=== PATIENT | female | born 1975 | race American Indian/Alaskan Native ===

== ENCOUNTER 2018-01-10 12:05 | Emergency (ER) | payer MEDICARE, MEDICAID ==
[2018-01-10 12:06] VITALS: BMI 60.2
--- NOTE | 2018-01-10 12:41 | ED PDOC ---
Arrival/HPI - General Chief Complaint: Lower Extremity Problem/Injury Time Seen by Provider: 01/10/18 12:09 Historian: Patient - History of Present Illness Narrative History of Present Illness (Text): 01/10/18 12:54 Patient is a 42 year old morbidly obese female with a past medical history including diabetes and a chronic venous ulcer located on her right griffin. Patient was seen in the wound care center this morning for her right griffin ulcer. The ulcer became very painful and she requested a new prescription for pain medication because she had recently run out of medication. She was informed there was no physician available in to prescribe her any medication and she decided to come to the emergency department. She is requesting a refill of her Tramadol, stating she is in too much pain. She did not try to call Dr. Salmeron because she states she does not have her phone number. Time/Duration: > month (9+ months ) Symptom Onset: Other (Chronic ) Symptom Course: Intermittent Quality: Stabbing Severity Level: Severe Past Medical History - Provider Review Nursing Documentation Reviewed: Yes - Cardiac Hx Hypertension: Yes - Pulmonary Hx Tuberculosis: No - Neurological HX Cerebrovascular Accident: No Hx Seizures: No - HEENT Hx HEENT Disorder: No - Renal Hx Renal Disorder: No - Endocrine/Metabolic Hx Endocrine Disorders: Yes Hx Diabetes Mellitus Type 2: Yes - Hematological/Oncological Hx Anemia: Yes - Integumentary Hx Dermatological Disorder: No - Musculoskeletal/Rheumatological Hx Musculoskeletal Disorders: No Hx Falls: No - Gastrointestinal Hx Gastrointestinal Disorders: Yes Hx Gastroesophageal Reflux: Yes Other/Comment: fibroid cyst - Genitourinary/Gynecological Hx Sexually Transmitted Diseases: No - Psychiatric Hx Psychophysiologic Disorder: No Hx Substance Use: No - Surgical History Hx Arthroscopy: Yes (left knee) Hx Orthopedic Surgery: Yes Other/Comment: bilateral knee surgery, bilateral upper eyelid surgery - Anesthesia Hx Anesthesia: Yes Hx Anesthesia Reactions: No Family/Social History - Physician Review Nursing Documentation Reviewed: Yes Family/Social History: Unknown Family HX Smoking Status: Never Smoked Hx Alcohol Use: No Hx Substance Use: No Allergies/Home Meds Allergies/Adverse Reactions: Allergies No Known Allergies Allergy (Verified 01/10/18 12:16) Home Medications: Home Meds Medication Instructions Recorded Confirmed MetFORMIN ER [Glucophage XR] 750 mg PO BID 02/11/17 01/10/18 amLODIPine [Norvasc] 5 mg PO DAILY 02/11/17 01/10/18 Allopurinol [Zyloprim] 100 mg PO DAILY 04/07/17 01/10/18 Atorvastatin [Lipitor] 40 mg PO HS 04/07/17 01/10/18 Cholecalciferol [Vitamin D 1000 IU] 2,000 iu PO DAILY 04/07/17 01/10/18 Famotidine [Pepcid] 20 mg PO DAILY 04/07/17 01/10/18 Gabapentin [Neurontin] 100 mg PO DAILY 04/07/17 01/10/18 Ibuprofen [Motrin Tab] 200 mg PO Q6 PRN 04/07/17 01/10/18 Valsartan [Diovan] 80 mg PO DAILY 04/07/17 01/10/18 traMADol [Ultram] 50 mg PO Q6 PRN 04/07/17 01/10/18 Review of Systems - Physician Review All systems were reviewed & negative as marked: Yes - Review of Systems Constitutional: Normal. absent: Fevers Respiratory: Normal. absent: SOB Cardiovascular: Normal. absent: Chest Pain Musculoskeletal: Other (right leg pain) Skin: Ulcer (right leg - chronic). absent: Cellulitis Neurological: Normal Hemo/Lymphatic: Normal Physical Exam Vital Signs Reviewed: Yes Vital Signs Temp Pulse Resp BP Pulse Ox 01/10/18 12:47 97.9 F 94 H 18 121/53 L 97 Temperature: Afebrile Blood Pressure: Normal Pulse: Regular Respiratory Rate: Normal Appearance: Positive for: Comfortable, Uncomfortable, Other (morbidly obease) Pain Distress: Moderate Mental Status: Positive for: Alert and Oriented X 3 - Systems Exam Head: Present: Atraumatic, Normocephalic Extroacular Muscles: Present: EOMI Lower Extremity: Present: Other (Dressing over right lower extremity ) Neurological: Present: GCS=15, CN II-XII Intact, Speech Normal Psychiatric: Present: Alert, Oriented x 3, Normal Insight, Normal Concentration Medical Decision Making ED Course and Treatment: 01/10/18 12:43 Patient is a 42 year old female with a chronic wound on her right griffin. Patient is currently being treated in the wound care clinic by Dr. Salmeron for this wound. Patient was seen in wound care center today but decided to come to the emergency room after not being given any pain medication. A call was placed to the wound care center and discussed case with Nurse Yeh. Per Nurse Ruba, lower extremity exam was: - 4.7 cm x 8.0 cm ulceration with skin island located on anterior right griffin. - Beefy red in color - Draining serous fluid - No change from previous exams in wound care center. - Patient requested pain medication while in the wound care center and became upset when informed there was no doctor to prescribe her pain medication today. - Patient has a history of asking for pain medication with every visit even though she comes in weekly. - She has been prescribed Tramadol and Ibuprofen 800mg in the past. As patient is already being treated for this chronic wound, will leave dressing in place. One Tramadol given while in Emergency department. - Patient was re-evaluated and patient reported great improvement in pain symptoms. Will give a prescription for Ibuprofen 800mg and inform patient that she needs to follow up with Dr. Salmeron for further pain management. - Medication Orders Current Medication Orders: Discontinued Medications Tramadol HCl (Ultram) 50 mg PO STAT STA Stop: 01/10/18 12:33 Last Admin: 01/10/18 12:54 Dose: 50 mg [facility] Pain Assessment Document 01/10/18 12:54 HI (Rec: 01/10/18 12:54 [place] [id number]) Pain Reassessment Is this a pain reassessment? No Sleep Is patient sleeping during reassessment? No Presence of Pain Presence of Pain Yes Pain Scale Used Pain Scale Used Numeric Location Left, Right or Bilateral Left Upper or Lower Lower Pain Location Body Site Leg Disposition/Present on Arrival - Present on Arrival Any Indicators Present on Arrival: Yes History of DVT/PE: No History of Uncontrolled Diabetes: Yes Urinary Catheter: No History of Decub. Ulcer: No History Surgical Site Infection Following: None - Disposition Have Diagnosis and Disposition been Completed?: Yes Diagnosis: Venous stasis ulcer, Chronic wound of extremity Disposition: HOME/ ROUTINE Disposition Time: 12:55 Patient Plan: Discharge Condition: STABLE Additional Instructions: Patient is to follow up with Dr. Salmeron within 2-3 days for further treatment. Patient given a prescription for Ibuprofen 800mg - dispense 20 tabs - Patient advised that medication needs to be taken medication with food. - Risks of gastric bleeding and ulcer discussed with patient. Prescriptions: Ibuprofen [Motrin Tab] 800 mg PO Q8H PRN #20 tab PRN Reason: Pain, Severe (8-10) Referrals: Miguel A,Juanito R, MD [Primary Care Provider] - Follow up with primary Forms: [employer] (Sammarinese)
[2018-01-10 12:47] VITALS: BP 121/53; PULSE 94; RESP 18; TEMP 97.9; O2SAT 97
== END 2018-01-10 13:12 | disposition home or self-care (01) ==
LOC: ED 12:05
DX: I87.8 Other specified disorders of veins (principal); E11.622 Type 2 diabetes mellitus with other skin ulcer; L97.819 Non-pressure chronic ulcer of other part of right lower leg with unspecified severity

== ENCOUNTER 2018-01-12 12:59 | Inpatient (IN) | payer MEDICARE, MEDICAID ==
[2018-01-12 13:27] VITALS: BMI 76.1
--- NOTE | 2018-01-12 14:45 | ED PDOC ---
Arrival/HPI - General Historian: Patient - History of Present Illness Time/Duration: 1-3 hours Symptom Onset: Sudden Symptom Course: Unchanged Quality: Burning Severity Level: 9 <Ozzy Hoang - Last Filed: 01/12/18 20:20> <Mert Edwards - Last Filed: 01/13/18 22:21> - General Chief Complaint: Lower Extremity Problem/Injury Time Seen by Provider: 01/12/18 14:19 - History of Present Illness Narrative History of Present Illness (Text): Patient is a 42 year old morbidly obese female with a past medical history of HTN, diabetes, and a chronic venous ulcer located on her right griffin presenting to the ED with right leg pain. Patient was in the ED 2 days ago for the same complaint. Patient was seen in the wound care center this morning for her right griffin ulcer and states that the nurse did not give her pain medication. Patient came to the ED today because she is having right leg pain. She denies fevers, chills, headaches, shortness of breath, chest pain, abdominal pain, or urinary symptoms. (Ozzy Hoang) Past Medical History - Provider Review Nursing Documentation Reviewed: Yes - Travel History Have you recently traveled outside [place] w/in the past 3 mons?: No - Past History Past History: No Previous - Cardiac Hx Hypertension: Yes - Pulmonary Hx Tuberculosis: No - Neurological HX Cerebrovascular Accident: No Hx Seizures: No - HEENT Hx HEENT Disorder: No - Renal Hx Renal Disorder: No - Endocrine/Metabolic Hx Endocrine Disorders: Yes Hx Diabetes Mellitus Type 2: Yes - Hematological/Oncological Hx Anemia: Yes - Integumentary Hx Dermatological Disorder: No - Musculoskeletal/Rheumatological Hx Musculoskeletal Disorders: No Hx Falls: No - Gastrointestinal Hx Gastrointestinal Disorders: Yes Hx Gastroesophageal Reflux: Yes Other/Comment: fibroid cyst - Genitourinary/Gynecological Hx Sexually Transmitted Diseases: No - Psychiatric Hx Psychophysiologic Disorder: No Hx Substance Use: No - Surgical History Hx Arthroscopy: Yes (left knee) Hx Orthopedic Surgery: Yes Other/Comment: bilateral knee surgery, bilateral upper eyelid surgery - Anesthesia Hx Anesthesia: Yes Hx Anesthesia Reactions: No <Ozzy Hoang - Last Filed: 01/12/18 20:20> Family/Social History - Physician Review Nursing Documentation Reviewed: Yes Family/Social History: No Known Family HX Smoking Status: Never Smoked Hx Alcohol Use: No Hx Substance Use: No <Ozzy Hoang - Last Filed: 01/12/18 20:20> Allergies/Home Meds <Ozzy Hoang - Last Filed: 01/12/18 20:20> <Mert Edwards - Last Filed: 01/13/18 22:21> Allergies/Adverse Reactions: Allergies No Known Allergies Allergy (Verified 01/10/18 12:16) Home Medications: Home Meds Medication Instructions Recorded Confirmed MetFORMIN ER [Glucophage XR] 750 mg PO BID 02/11/17 01/10/18 amLODIPine [Norvasc] 5 mg PO DAILY 02/11/17 01/10/18 Allopurinol [Zyloprim] 100 mg PO DAILY 04/07/17 01/10/18 Atorvastatin [Lipitor] 40 mg PO HS 04/07/17 01/10/18 Cholecalciferol [Vitamin D 1000 IU] 2,000 iu PO DAILY 04/07/17 01/10/18 Famotidine [Pepcid] 20 mg PO DAILY 04/07/17 01/10/18 Gabapentin [Neurontin] 100 mg PO DAILY 04/07/17 01/10/18 Ibuprofen [Motrin Tab] 200 mg PO Q6 PRN 04/07/17 01/10/18 Valsartan [Diovan] 80 mg PO DAILY 04/07/17 01/10/18 traMADol [Ultram] 50 mg PO Q6 PRN 04/07/17 01/10/18 Review of Systems - Physician Review All systems were reviewed & negative as marked: Yes - Review of Systems Constitutional: Normal. absent: Fevers, Night Sweats Eyes: Normal ENT: Normal Respiratory: Normal. absent: SOB, Cough, Sputum, Wheezing Cardiovascular: Normal. absent: Chest Pain Gastrointestinal: Normal. absent: Abdominal Pain, Constipation, Diarrhea, Nausea, Vomiting Genitourinary Female: Normal. absent: Dysuria, Frequency, Hematuria Musculoskeletal: Normal Skin: Ulcer (Chronic venous stasis ulcer on the right griffin). absent: Rash, Pruritis Neurological: Normal. absent: Headache Endocrine: Normal Hemo/Lymphatic: Normal Psychiatric: Normal <Codie Hoangi - Last Filed: 01/12/18 20:20> Physical Exam Temperature: Afebrile Blood Pressure: Normal Pulse: Regular Respiratory Rate: Normal Appearance: Positive for: Well-Appearing, Non-Toxic, Comfortable Pain Distress: Moderate Mental Status: Positive for: Alert and Oriented X 3 - Systems Exam Head: Present: Atraumatic, Normocephalic Pupils: Present: PERRL Extroacular Muscles: Present: EOMI Conjunctiva: Present: Normal Mouth: Present: Moist Mucous Membranes Respiratory/Chest: Present: Clear to Auscultation, Good Air Exchange. No: Respiratory Distress, Accessory Muscle Use Cardiovascular: Present: Regular Rate and Rhythm, Normal S1, S2. No: Murmurs, Rub, Gallop Abdomen: Present: Normal Bowel Sounds. No: Tenderness, Distention, Peritoneal Signs Upper Extremity: Present: Normal Inspection. No: Cyanosis, Edema Lower Extremity: No: Normal Inspection, Edema, CALF TENDERNESS, Tenderness Neurological: Present: GCS=15, CN II-XII Intact, Speech Normal Skin: Present: Warm, Dry, Normal Color, Other (Right griffin dressing in place, dressing C/D/I). No: Rashes Psychiatric: Present: Alert, Oriented x 3, Normal Insight, Normal Concentration <Ozzy Hoang - Last Filed: 01/12/18 20:20> Vital Signs Temp Pulse Resp BP Pulse Ox 01/12/18 15:56 98 F 76 17 122/76 97 01/12/18 13:27 97.9 F 84 18 125/69 96 Medical Decision Making Reassessment Condition: Re-examined, Unchanged <Ozzy Hoang - Last Filed: 01/12/18 20:20> <Mert Edwards - Last Filed: 01/13/18 22:21> ED Course and Treatment: Impression: Patient is a 42 year old female presenting to the ED with right leg pain. Differential Diagnosis included but are not limited to: - Venous stasis ulcer - Cellulitis Plan: -- Tramadol -- Reassess and disposition Progress note: - Patient was in the ED 2 days ago for the same complaint. - Right leg dressing was changed this morning at the wound care clinic. Patient is complaining of pain because the nurse did not give her any pain medications. - Spoke to Dr. Salmeron on the phone, she wants to admit the patient and consult pain management. 01/12/18 19:45 - Dr. Carrasco agreed to admit patient. Patient is stable. - Tibia and fibula xray: Normal tibia and fibula xray. (Ozzy Hoang) - Lab Interpretations Lab Results: 01/13/18 06:00 01/13/18 06:00 Lab Results 01/13/18 16:38: POC Glucose (mg/dL) 94 01/13/18 11:28: POC Glucose (mg/dL) 100 01/13/18 07:29: POC Glucose (mg/dL) 95 01/13/18 06:00: Hemoglobin A1c 6.7 H 01/13/18 06:00: Sodium 142, Potassium 4.3, Chloride 104, Carbon Dioxide 29, Anion Gap 13, BUN 13, Creatinine 0.6 L, Est GFR ( Amer) > 60, Est GFR ( Non-Af Amer) > 60, Random Glucose 110, Calcium 9.6 01/13/18 06:00: WBC 6.0, RBC 4.20, Hgb 10.7 L, Hct 35.5 L, MCV 84.5, MCH 25.5, MCHC 30.1 L, RDW 17.5 H, Plt Count 242, MPV 9.4 01/12/18 22:24: POC Glucose (mg/dL) 120 H 01/12/18 17:08: Sodium 141, Potassium 4.4, Chloride 104, Carbon Dioxide 31, Anion Gap 10, BUN 13, Creatinine 0.6 L, Est GFR ( Amer) > 60, Est GFR ( Non-Af Amer) > 60, Random Glucose 93, Calcium 9.8, Total Bilirubin 0.3, AST 18, ALT 21, Alkaline Phosphatase 68, Total Protein 7.8, Albumin 4.1, Globulin 3.6, Albumin/Globulin Ratio 1.1 01/12/18 17:08: WBC 6.1, RBC 4.39, Hgb 11.4 L, Hct 37.2, MCV 84.7, MCH 26.0, MCHC 30.6 L, RDW 17.6 H, Plt Count 253, MPV 9.4, Gran % 65.4, Lymph % (Auto) 25.5, [place] % (Auto) 6.1 H, Eos % (Auto) 2.8, Baso % (Auto) 0.2, Gran # 3.98, Lymph # (Auto) 1.6, [place] # (Auto) 0.4, Eos # (Auto) 0.2, Baso # (Auto) 0.01, ESR 37 H - RAD Interpretation Radiology Orders: 01/12/18 16:07 TIBIA FIBULA RIGHT [RAD] Stat 01/13/18 06:44 LOWER EXT ART NON-INV COMPL [US] Routine 01/13/18 16:48 EXT LOWER W/O CONTRAST RIGHT [CT] Routine - Medication Orders Current Medication Orders: Allopurinol (Zyloprim) 100 mg PO DAILY [facility] Last Admin: 01/13/18 10:26 Dose: 100 mg Amlodipine Besylate (Norvasc) 5 mg PO DAILY [facility] Last Admin: 01/13/18 10:28 Dose: 5 mg MAR Pulse and Blood Pressure Document 01/13/18 10:28 VS (Rec: 01/13/18 10:28 [place] [id number]) Pulse Pulse Rate (60-90) 90 Blood Pressure Blood Pressure (100/60-150/90) 120/70 Aspirin (Aspirin Chewable) 81 mg PO DAILY [facility] Last Admin: 01/13/18 10:27 Dose: 81 mg Atorvastatin Calcium (Lipitor) 40 mg PO HS [facility] Last Admin: 01/13/18 21:39 Dose: 40 mg Cholecalciferol (Vitamin D) 2,000 intlu PO DAILY [facility] Last Admin: 01/13/18 10:26 Dose: 2,000 intlu Famotidine (Pepcid) 20 mg PO DAILY [facility] Last Admin: 01/13/18 10:26 Dose: 20 mg Gabapentin (Neurontin) 100 mg PO DAILY [facility] PRN Reason: Protocol Last Admin: 01/13/18 10:26 Dose: 100 mg Behavioural Document 01/13/18 10:26 VS (Rec: 01/13/18 10:26 VS [place] [id number]) Maintenance Maintenance Dose Yes Re-Assess: Reassess Psych Meds Document 01/13/18 11:26 VS (Rec: 01/13/18 11:48 VS [place] [id number]) Reassess Psych Med Effective Heparin Sodium (Porcine) (Heparin) 5,000 units SC Q8 [facility] PRN Reason: Protocol Last Admin: 01/13/18 21:38 Dose: 5,000 units Subcutaneous Administrations Document 01/13/18 21:38 SG (Rec: 01/13/18 21:39 SG [facility]) Charges for Administration # of Subcutaneous Administrations 1 Hydroxyzine HCl (Atarax) 25 mg PO BID PRN PRN Reason: Anxiety Ibuprofen (Motrin Tab) 800 mg PO Q8H PRN PRN Reason: Pain, severe (8-10) Last Admin: 01/13/18 17:42 Dose: 800 mg Insulin Human Regular (Humulin R Low) 0 units SC ACHS ROMI PRN Reason: Protocol Last Admin: 01/13/18 21:36 Dose: Not Given Non-Admin Reason: Blood Sugar Parameter [facility] Blood Glucose Document 01/13/18 21:36 (Rec: 01/13/18 21:37 [facility]) Blood Glucose Finger Stick Blood Glucose (70-120) 79 Subcutaneous Administrations Document 01/13/18 21:36 SG (Rec: 01/13/18 21:37 [facility]) Charges for Administration # of Subcutaneous Administrations 0 Levofloxacin (Levaquin) 750 mg PO DAILY [facility] PRN Reason: Protocol Last Admin: 01/13/18 17:42 Dose: 750 mg Linezolid (Zyvox) 600 mg PO BID [facility] PRN Reason: Protocol Last Admin: 01/13/18 17:42 Dose: 600 mg Losartan Potassium (Cozaar) 50 mg PO DAILY [facility] Last Admin: 01/13/18 10:27 Dose: 50 mg [facility] Pulse and Blood Pressure Document 01/13/18 10:27 VS (Rec: 01/13/18 10:28 VS [id number]) Pulse Pulse Rate (60-90) 90 Blood Pressure Blood Pressure (100/60-150/90) 120/70 Tramadol HCl (Ultram) 50 mg PO Q6 PRN PRN Reason: Pain, moderate (4-7) Last Admin: 01/13/18 14:19 Dose: 50 mg MAR Pain Assessment Document 01/13/18 14:19 VS (Rec: 01/13/18 14:20 VS [id number]) Pain Reassessment Is this a pain reassessment? No Presence of Pain Presence of Pain Yes Pain Scale Used Pain Scale Used Numeric Location Left, Right or Bilateral Right Upper or Lower Lower Pain Location Body Site Leg Description Description Constant Acceptable Level of Pain 7 Pain Behavior Moaning Irritability Aggravating Factors None Alleviating Factors/Management Medication Techniques Alleviating Factors Medication Re-Assess: MAR Pain Assessment Document 01/13/18 15:19 VS (Rec: 01/13/18 15:22 VS [id number]) Pain Reassessment Is this a pain reassessment? Yes Sleep Is patient sleeping during reassessment? No Presence of Pain Presence of Pain No Discontinued Medications Vancomycin HCl (Vancomycin 1gm) 1 gm in 250 mls @ 167 mls/hr IVPB Q12H ROMI PRN Reason: Protocol Last Admin: 01/13/18 10:27 Dose: 167 mls/hr eMAR Start Stop Document 01/13/18 10:27 VS (Rec: 01/13/18 10:27 VS [id number]) Intravenous Solution Start Date 01/13/18 Start Time 10:27 End Date 01/13/18 End time 11:57 Total Infusion Time 90 Tramadol HCl (Ultram) 50 mg PO STAT STA Stop: 01/12/18 14:44 Last Admin: 01/12/18 15:06 Dose: 50 mg [facility] Pain Assessment Document 01/12/18 15:06 [facility] (Rec: 01/12/18 15:06 [facility] [id number]) Pain Reassessment Is this a pain reassessment? No Sleep Is patient sleeping during reassessment? No Presence of Pain Presence of Pain Yes Location Left, Right or Bilateral Right Pain Location Body Site Leg Description Intensity of Pain at present 6 - PA / [employer]ER / Resident Statement / has reviewed & agrees with the documentation as recorded. / has examined the patient and agrees with the treatment plan. <Mert Edwards - Last Filed: 01/13/18 22:21> Disposition/Present on Arrival - Present on Arrival Any Indicators Present on Arrival: No History of DVT/PE: No History of Uncontrolled Diabetes: No Urinary Catheter: No History of Decub. Ulcer: No History Surgical Site Infection Following: None - Disposition Have Diagnosis and Disposition been Completed?: Yes Disposition Time: 15:34 Patient Plan: Admission <Ozzy Hoang - Last Filed: 01/12/18 20:20> <Mert Edwards - Last Filed: 01/13/18 22:21> - Disposition Diagnosis: Right leg pain, Ulcer Disposition: HOSPITALIZED Patient Problems: Current Active Problems Problem Status Onset Right leg pain Acute Ulcer Acute Condition: FAIR
[2018-01-12 17:12] LABS: BASO # 0.01 K/mm3 (0.0-2.0); BASO % 0.2 % (0.0-3.0); EOS # 0.2 (0.0-0.7); EOS % 2.8 % (1.5-5.0); GRAN # 3.98 (1.4-6.5); GRAN % 65.4 % (50.0-68.0); HEMOGLOBIN 11.4 g/dL (12.0-16.0); LYMPH # 1.6 (1.2-3.4); LYMPH % 25.5 % (22.0-35.0); MEAN CELL VOLUME 84.7 fl (80.0-105.0); MEAN CORPUSCULAR HGB CONC 30.6 g/dl (31.0-37.0); MEAN PLATELET VOLUME 9.4 fl (7.0-11.0); MONO # 0.4 (0.1-0.6); MONO % 6.1 % (1.0-6.0); RBC 4.39 10^6/uL (3.5-6.1); RED CELL DISTRIBUTION WIDTH 17.6 % (11.5-14.5); WHITE BLOOD COUNT 6.1 10^3/ul (4.5-11.0)
[2018-01-12 17:26] LABS: ALB/GLOB RATIO 1.1 (1.1-1.8); ALBUMIN 4.1 g/dL (3.0-4.8); ALT/SGPT 21 U/L (7-56); AST/SGOT 18 U/L (14-36); BLOOD UREA NITROGEN 13 mg/dL (7-21); CALCIUM 9.8 mg/dL (8.4-10.5); GFR NON-AFRICAN AMERICAN > 60
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
[2018-01-12] MEDS: Vancomycin 1gm in NS 250ml 1 GM/250 ML BAG IVPB SCH (22:36)
[2018-01-12] MEDS: Insulin Reg-LOW-Coverage SC SCH (22:42)
[2018-01-13 06:40] LABS: HEMOGLOBIN 10.7 g/dL (12.0-16.0); MEAN CELL VOLUME 84.5 fl (80.0-105.0); MEAN CORPUSCULAR HEMOGLOBIN 25.5 pg (25.0-35.0); MEAN CORPUSCULAR HGB CONC 30.1 g/dl (31.0-37.0); MEAN PLATELET VOLUME 9.4 fl (7.0-11.0); RBC 4.2 10^6/uL (3.5-6.1); RED CELL DISTRIBUTION WIDTH 17.5 % (11.5-14.5)
[2018-01-13 07:00] LABS: BLOOD UREA NITROGEN 13 mg/dL (7-21); CALCIUM 9.6 mg/dL (8.4-10.5); GFR NON-AFRICAN AMERICAN > 60
[2018-01-13] MEDS: Insulin Reg-LOW-Coverage SC SCH ×4 (08:34→21:36)
[2018-01-13] MEDS: Cholecalciferol 1,000 INTLU TAB PO SCH (10:26)
[2018-01-13] MEDS: Vancomycin 1gm in NS 250ml 1 GM/250 ML BAG IVPB SCH (10:27)
--- NOTE | 2018-01-13 11:35 | CP.PCM.CON ---
History of Present Illness - History of Present Illness History of Present Illness: Podiatry consult note for attending Dr. Salmeron; A 42 year old female patient with PMH of morbid obesity, HTN, HLD, DM, chronic venous ulcers, non healing right griffin wound, fibroid uterus and peripheral neuropathy seen and evaluated at the bed side for painful, non healing right leg ulcer. Patient states that she has this ulcer in her right leg since March 2017. Patient states that she is following up with Dr. Salmeron at the wound care center. Patient states that her wound is improving and it decreases in size. Patient states that yesterday she was in a lot of pain and Dr Salmeron sent her to the ED to be admitted for pain control. Patient states that she useto use tramadol for pain which is working well with her. She denies CP, SOB, fevers, chills recently but she reports having nausez and vomitting 2 weeks ago. Patient denies any other pedal complaint at this time. PMD: PMH of morbid obesity, HTN, HLD, DM, chronic venous ulcers, non healing right griffin wound, fibroid uterus and peripheral neuropathy. PSH: None Allergies: NKDA Social Hx: denies smoking and drugs. Occasional drinking Review of Systems - Review of Systems Review of Systems: As per HPI Past Patient History - Past Medical History & Family History Past Medical History?: Yes - Past Social History Smoking Status: Never Smoked - CARDIAC Hx Hypertension: Yes - PULMONARY Hx Tuberculosis: No - NEUROLOGICAL HX Cerebrovascular Accident: No Hx Seizures: No - HEENT Hx HEENT Problems: No - RENAL Hx Chronic Kidney Disease: No - ENDOCRINE/METABOLIC Hx Endocrine Disorders: Yes Hx Diabetes Mellitus Type 2: Yes - HEMATOLOGICAL/ONCOLOGICAL Hx Anemia: Yes - INTEGUMENTARY Hx Dermatological Problems: No - MUSCULOSKELETAL/RHEUMATOLOGICAL Hx Musculoskeletal Disorders: No Hx Falls: No - GASTROINTESTINAL Hx Gastrointestinal Disorders: Yes Hx Gastroesophageal Reflux: Yes Other/Comment: fibroid cyst - GENITOURINARY/GYNECOLOGICAL Hx Sexually Transmitted Disorders: No - PSYCHIATRIC Hx Psychophysiologic Disorder: No Hx Substance Use: No - SURGICAL HISTORY Hx Arthroscopy: Yes (left knee) Hx Orthopedic Surgery: Yes Other/Comment: bilateral knee surgery, bilateral upper eyelid surgery - ANESTHESIA Hx Anesthesia: Yes Hx Anesthesia Reactions: No Meds Allergies/Adverse Reactions: Allergies Allergy/AdvReac Type Severity Reaction Status Date / Time No Known Allergies Allergy Verified 01/10/18 12:16 - Medications Medications: Current Medications Allopurinol (Zyloprim) 100 mg PO DAILY [facility] Last Admin: 01/13/18 10:26 Dose: 100 mg Amlodipine Besylate (Norvasc) 5 mg PO DAILY [facility] Last Admin: 01/13/18 10:28 Dose: 5 mg Aspirin (Aspirin Chewable) 81 mg PO DAILY [facility] Last Admin: 01/13/18 10:27 Dose: 81 mg Atorvastatin Calcium (Lipitor) 40 mg PO HS [facility] Last Admin: 01/12/18 22:24 Dose: 40 mg Cholecalciferol (Vitamin D) 2,000 intlu PO DAILY [facility] Last Admin: 01/13/18 10:26 Dose: 2,000 intlu Famotidine (Pepcid) 20 mg PO DAILY [facility] Last Admin: 01/13/18 10:26 Dose: 20 mg Gabapentin (Neurontin) 100 mg PO DAILY [facility] PRN Reason: Protocol Last Admin: 01/13/18 10:26 Dose: 100 mg Heparin Sodium (Porcine) (Heparin) 5,000 units SC Q8 [facility] PRN Reason: Protocol Last Admin: 01/13/18 06:10 Dose: 5,000 units Hydroxyzine HCl (Atarax) 25 mg PO BID PRN PRN Reason: Anxiety Vancomycin HCl (Vancomycin 1gm) 1 gm in 250 mls @ 167 mls/hr IVPB Q12H [facility] PRN Reason: Protocol Last Admin: 01/13/18 10:27 Dose: 167 mls/hr Ibuprofen (Motrin Tab) 800 mg PO Q8H PRN PRN Reason: Pain, severe (8-10) Last Admin: 01/13/18 06:11 Dose: 800 mg Insulin Human Regular (Humulin R Low) 0 units SC ACHS [facility] PRN Reason: Protocol Last Admin: 01/13/18 08:34 Dose: Not Given Losartan Potassium (Cozaar) 50 mg PO DAILY [facility] Last Admin: 01/13/18 10:27 Dose: 50 mg Tramadol HCl (Ultram) 50 mg PO Q6 PRN PRN Reason: Pain, moderate (4-7) Last Admin: 01/12/18 22:06 Dose: 50 mg Physical Exam - Constitutional Appears: Well, Non-toxic, No Acute Distress - Head Exam Head Exam: ATRAUMATIC, NORMOCEPHALIC - Extremities Exam Additional comments: Left LE focused exam: Vasc: DP 2/4 b/l. PT couldn't be palpated due to edema B/L. Cap refill < 3 sec in all digits. temp gradient warm to cool from proximal to distal. Massive non pitting edema extending up to the tibial tuberosity b/l.. Neuro: gross and protective sensations are intact b/l. Derm: An open ulcer [id number] in the the anterior aspect of the right leg at the mid-leg position . Positive drainage of serous discharge, No malodor. No probing to bone, No undermining. No erythema. no clinical signs of infection. Bilateral skin changes (hyperpigmentation and lichnification) of the legs. MSK: Pain on palpatingthe periulcerative area. Muscle power intact 5/5 in all groups. - Neurological Exam Neurological exam: Alert, Oriented x3 - Psychiatric Exam Psychiatric exam: Normal Affect, Normal Mood Results - Vital Signs Recent Vital Signs: Last Vital Signs Temp 98.1 F 01/13/18 06:00 Pulse 90 01/13/18 10:28 Resp 20 01/13/18 06:00 BP 120/70 01/13/18 10:28 Pulse Ox 94 L 01/13/18 06:00 - Labs Result Diagrams: 01/13/18 06:00 01/13/18 06:00 Labs: Laboratory Results - last 24 hr 01/12/18 01/13/18 01/13/18 22:24 06:00 06:00 WBC 6.0 RBC 4.20 Hgb 10.7 L Hct 35.5 L MCV 84.5 MCH 25.5 MCHC 30.1 L RDW 17.5 H Plt Count 242 MPV 9.4 Sodium 142 Potassium 4.3 Chloride 104 Carbon Dioxide 29 Anion Gap 13 BUN 13 Creatinine 0.6 L Est GFR ( Amer) > 60 Est GFR (Non-Af Amer) > 60 POC Glucose (mg/dL) 120 H Random Glucose 110 Calcium 9.6 01/13/18 07:29 WBC RBC Hgb Hct MCV MCH MCHC RDW Plt Count MPV Sodium Potassium Chloride Carbon Dioxide Anion Gap BUN Creatinine Est GFR ( Amer) Est GFR (Non-Af Amer) POC Glucose (mg/dL) 95 Random Glucose Calcium Assessment & Plan - Assessment and Plan (Free Text) Assessment: 42 Y/O F patient seen and evaluated at the bedside for painful Right leg ulcer. Plan: Patient seen and evaluated at the bed side Plan discussed in detils with attending Dr. Salmeron Chart, Labs and vitals reviewed; Afebrile, WBCs 6.0 LE arterial duplex: MALKA R 0.57, L 0.97. Left tib-fibula x-ray reviewed and it shows no bone deformities, no signs of osteomyelitis. Ulcer dressed using Optifoam. Wound culture; Enterbacter cloacae Ssp cloac, Staph aureus. Pain medicine is on board. Consult Vascular surgery. Consult ID Podiatry will follow up the patient while in house. - Date & Time Date: 01/13/18 Time: 11:59
--- NOTE | 2018-01-13 14:36 | RAD ---
Date of service: 01/12/2018 PROCEDURE: Radiographs of the right tibia and fibula. HISTORY: chronic ulcer h/o DM w/ osteomyelitis COMPARISON: None available TECHNIQUE: Frontal and lateral views obtained. FINDINGS: BONES: No fracture or destructive lesion. JOINT SPACES: Unremarkable. OTHER FINDINGS: None. IMPRESSION: Unremarkable radiographs of the right tibia and fibula.
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
[2018-01-13] MEDS ORDERED: Cefepime 1gm in NS 100ml 1 GM/100 ML BAG IVPB SCH (16:15)
--- NOTE | 2018-01-13 16:15 | US ---
PROCEDURE: Lower extremity MALKA exam HISTORY: Peripheral vascular disease with with right ulceration PHYSICIAN(S): Myron Hill MD. FINDINGS: The right resting MALKA is abnormal compared the left. However, the right ankle and metatarsal waveforms are normal. This may be related to a technical problem. The brachial systolic pressures are symmetric. The low thigh PVR waveforms are not interpretable, presumably related to body habitus and cup size. The calf, ankle, and metatarsal waveforms are normal bilaterally. IMPRESSION: 1. Limited study due to body habitus. 2. The calf, ankle, and metatarsal waveforms are normal and symmetric bilaterally
[2018-01-13] MEDS: levoFLOXacin 750 MG TAB PO SCH (17:42)
[2018-01-14] MEDS: Insulin Reg-LOW-Coverage SC SCH ×4 (09:32→21:26)
[2018-01-14] MEDS: levoFLOXacin 750 MG TAB PO SCH (09:33)
[2018-01-14] MEDS: Cholecalciferol 1,000 INTLU TAB PO SCH (09:34)
--- NOTE | 2018-01-14 14:15 | PN ---
DATE: 01/14/2018 SUBJECTIVE: The patient is in bed, in no acute distress, nontoxic. PHYSICAL EXAMINATION: VITAL SIGNS: On exam, temperature is 98, blood pressure is 150/90, respiratory rate of 21, heart rate of 84. HEENT: Examination of HEENT is unremarkable. NECK: Supple. LUNGS: Have decreased breath sounds. HEART: Normal S1, S2. ABDOMEN: Soft, nontender. LABORATORY DATA: Laboratory examination reveals the patient's white count of 6000, hemoglobin of 10, platelets of 242. The chemistries are reviewed with BUN of 13, creatinine of 0.6 and microbiology is reviewed, has gram-negative rods from the right leg. ASSESSMENT AND PLAN: A 42-year-old female with super morbid obesity with a body mass index of 76 with dyslipidemia, hypertension and diabetes, chronic leg ulcers, especially, on the right leg with right leg skin and skin structure infection with gram-negative jignesh and currently on vancomycin, cefepime. Awaiting for final culture results. The patient also had a CT of the leg, those results are also pending. The patient had been afebrile and did have respiratory rate of 21 and 22 with normal white count does not meet criteria for systemic inflammatory response syndrome or sepsis, only for soft tissue and skin infection, on Zyvox p.o. and Levaquin p.o. The patient's identification sensitivity is pending. Patient is refusing IV access. Davion Kaiser MD
--- NOTE | 2018-01-14 14:31 | CP.PCM.PN ---
<Davey Alejandro - Last Filed: 01/14/18 15:12> Subjective - Date & Time of Evaluation Date of Evaluation: 01/14/18 Time of Evaluation: 07:00 - Subjective Subjective: Pt seen and examined this morning. Pt denies chest pain, SOB. She reports leg pain. Objective - Vital Signs/Intake and Output Vital Signs (last 24 hours): Temp Pulse Resp BP Pulse Ox 97.6 F 84 21 151/97 H 93 L 01/14/18 08:06 01/14/18 09:33 01/14/18 08:06 01/14/18 09:33 01/14/18 08:06 - Medications Medications: Current Medications Allopurinol (Zyloprim) 100 mg PO DAILY REPLACED BY [facility] Last Admin: 01/14/18 09:34 Dose: 100 mg Amlodipine Besylate (Norvasc) 5 mg PO DAILY REPLACED BY [facility] Last Admin: 01/14/18 09:33 Dose: 5 mg Aspirin (Aspirin Chewable) 81 mg PO DAILY REPLACED BY [facility] Last Admin: 01/14/18 09:31 Dose: 81 mg Atorvastatin Calcium (Lipitor) 40 mg PO HS REPLACED BY [facility] Last Admin: 01/13/18 21:39 Dose: 40 mg Cholecalciferol (Vitamin D) 2,000 intlu PO DAILY REPLACED BY [facility] Last Admin: 01/14/18 09:34 Dose: 2,000 intlu Famotidine (Pepcid) 20 mg PO DAILY REPLACED BY [facility] Last Admin: 01/14/18 09:34 Dose: 20 mg Gabapentin (Neurontin) 100 mg PO DAILY REPLACED BY [facility] PRN Reason: Protocol Last Admin: 01/14/18 09:40 Dose: Not Given Heparin Sodium (Porcine) (Heparin) 5,000 units SC Q8 ROMI PRN Reason: Protocol Last Admin: 01/14/18 13:16 Dose: 5,000 units Hydroxyzine HCl (Atarax) 25 mg PO BID PRN PRN Reason: Anxiety Ibuprofen (Motrin Tab) 800 mg PO Q8H PRN PRN Reason: Pain, severe (8-10) Last Admin: 01/13/18 17:42 Dose: 800 mg Insulin Human Regular (Humulin R Low) 0 units SC ACHS REPLACED BY [facility] PRN Reason: Protocol Last Admin: 01/14/18 09:32 Dose: Not Given Levofloxacin (Levaquin) 750 mg PO DAILY REPLACED BY [facility] PRN Reason: Protocol Last Admin: 01/14/18 09:33 Dose: 750 mg Linezolid (Zyvox) 600 mg PO BID [facility] PRN Reason: Protocol Last Admin: 01/14/18 09:35 Dose: 600 mg Losartan Potassium (Cozaar) 50 mg PO DAILY REPLACED BY [facility] Last Admin: 01/14/18 09:31 Dose: 50 mg Tramadol HCl (Ultram) 50 mg PO Q6 PRN PRN Reason: Pain, moderate (4-7) Last Admin: 01/14/18 08:32 Dose: 50 mg - Constitutional Appears: In Acute Distress - Head Exam Head Exam: ATRAUMATIC, NORMOCEPHALIC - ENT Exam ENT Exam: Mucous Membranes Moist - Respiratory Exam Respiratory Exam: Clear to Ausculation Bilateral, NORMAL BREATHING PATTERN. absent: Wheezes - Cardiovascular Exam Cardiovascular Exam: RRR, +S1, +S2 - GI/Abdominal Exam GI & Abdominal Exam: Soft - Neurological Exam Neurological Exam: Alert, Awake, Oriented x3 - Skin Skin Exam: Dry, Intact, Warm Assessment and Plan - Assessment and Plan (Free Text) Assessment: Pt is a 42 year old female with PMH of morbid obesity, HTN, HLD, DM, chronic venous ulcers, non healing right griffin wound, fibroid uterus and peripheral neuropathy being managed in hospital for intractable pain in right lower leg wound. Admitted for observation. Plan: Chronic non healing ulcer with intractable pain - right anterior lower leg ulcer - Xray shows no acute pathology - duplex LE: limited study due to body habitus. The calf, ankle, and metatarsal waveforms are normal symmetric bilaterally - continue PO Zyvox 600mg PO BID - continue Levoquine 750mg PO Daily - continue allopurinol 100mg PO daily - tramadol 50mg PO q6 PRN - Podiatry, Dr. Salmeron - Pain management, Dr. Britton - CT LE: waiting for official read - pt refusing IV access Morbid Obesity - consistent carb diet - fall precautions - activity as tolerated Hx of DM - SSI - finger sticks - HA1C 6.7 Hx HTN -continue amlodipine 5mg - continue cozaar 50mg Hx HLD -continue lipitor 40mg Hx Peripheral Neuropathy -continue gabapentin 100mg PO daily Ppx - pepcid - heparin Pt seen, examined, assessment and plan discussed with Dr Belkys Alejandro PGY1 <Supriya Rizvi - Last Filed: 01/15/18 15:13> Objective - Vital Signs/Intake and Output Vital Signs (last 24 hours): Temp Pulse Resp BP Pulse Ox 97.5 F L 85 20 124/69 99 01/15/18 09:04 01/15/18 09:35 01/15/18 09:04 01/15/18 09:35 01/15/18 09:04 - Medications Medications: Current Medications Allopurinol (Zyloprim) 100 mg PO DAILY REPLACED BY [facility] Last Admin: 01/15/18 09:37 Dose: 100 mg Amlodipine Besylate (Norvasc) 5 mg PO DAILY REPLACED BY [facility] Last Admin: 01/15/18 09:37 Dose: 5 mg Aspirin (Aspirin Chewable) 81 mg PO DAILY REPLACED BY [facility] Last Admin: 01/15/18 09:35 Dose: 81 mg Atorvastatin Calcium (Lipitor) 40 mg PO HS REPLACED BY [facility] Last Admin: 01/14/18 21:56 Dose: 40 mg Cholecalciferol (Vitamin D) 2,000 intlu PO DAILY REPLACED BY [facility] Last Admin: 01/15/18 09:37 Dose: 2,000 intlu Famotidine (Pepcid) 20 mg PO DAILY REPLACED BY [facility] Last Admin: 01/15/18 09:37 Dose: 20 mg Gabapentin (Neurontin) 100 mg PO HS REPLACED BY [facility] PRN Reason: Protocol Heparin Sodium (Porcine) (Heparin) 5,000 units SC Q8 ROMI PRN Reason: Protocol Last Admin: 01/15/18 14:50 Dose: 5,000 units Hydroxyzine HCl (Atarax) 25 mg PO BID PRN PRN Reason: Anxiety Meropenem (Merrem Iv 1 Gm Premix) 50 mls @ 100 mls/hr IVPB Q8 ROMI PRN Reason: Protocol Stop: 01/24/18 14:01 Last Admin: 01/15/18 14:47 Dose: 100 mls/hr Ibuprofen (Motrin Tab) 800 mg PO Q8H PRN PRN Reason: Pain, severe (8-10) Last Admin: 01/14/18 19:09 Dose: 800 mg Insulin Human Regular (Humulin R Low) 0 units SC ACHS [facility] PRN Reason: Protocol Last Admin: 01/15/18 09:36 Dose: Not Given Linezolid (Zyvox) 600 mg PO BID [facility] PRN Reason: Protocol Last Admin: 01/15/18 09:37 Dose: 600 mg Losartan Potassium (Cozaar) 50 mg PO DAILY [facility] Last Admin: 01/15/18 09:35 Dose: 50 mg Tramadol HCl (Ultram) 50 mg PO Q6 PRN PRN Reason: Pain, moderate (4-7) Last Admin: 01/14/18 16:33 Dose: 50 mg - Labs Labs: 01/15/18 06:30 01/15/18 06:30 Attending/Attestation - Attestation I have personally seen and examined this patient.: Yes I have fully participated in the care of the patient.: Yes I have reviewed all pertinent clinical information, including history, physical exam and plan: Yes Notes (Text): 01/15/18 15:12 Medical record note made by the resident after discussion with my direction and input after the patient was personally seen and examined by me. I have reviewed the chart and agree that the record accurately reflects by personal performance of the history, physical exam, data review, and medical decision-making, in the course for the patient. I have also personally directed the plan of care. 42 Yrs old female with PMH of Morbid Obesity,NIDDM , chonic venous stasis with infected bedside lateral right leg wound, /cellulitis, CT is negative for abscess or osteomylitis.Wound cultures are growing Proteus mirabilis and E coli. We will follow up sensivity report. Case was discussed with ID. Management plan was discussed in detail with patient. Education was provided.
--- NOTE | 2018-01-14 15:33 | CP.PCM.PN ---
Subjective - Date & Time of Evaluation Date of Evaluation: 01/14/18 Time of Evaluation: 15:29 - Subjective Subjective: Podiatry Progress Note for Dr. Salmeron 42F seen and evaluated at bedside for lateral right leg wound. Patient is AAO x 3 and NAD, resting comfortably in bed. Denies any acute overnight events or new pedal complaints. States that pain is well controlled. Denies any recent N/V/F/C /CP/SOB Objective - Vital Signs/Intake and Output Vital Signs (last 24 hours): Temp Pulse Resp BP Pulse Ox 97.6 F 84 21 151/97 H 93 L 01/14/18 08:06 01/14/18 09:33 01/14/18 08:06 01/14/18 09:33 01/14/18 08:06 - Medications Medications: Current Medications Allopurinol (Zyloprim) 100 mg PO DAILY [facility] Last Admin: 01/14/18 09:34 Dose: 100 mg Amlodipine Besylate (Norvasc) 5 mg PO DAILY [facility] Last Admin: 01/14/18 09:33 Dose: 5 mg Aspirin (Aspirin Chewable) 81 mg PO DAILY [facility] Last Admin: 01/14/18 09:31 Dose: 81 mg Atorvastatin Calcium (Lipitor) 40 mg PO HS [facility] Last Admin: 01/13/18 21:39 Dose: 40 mg Cholecalciferol (Vitamin D) 2,000 intlu PO DAILY [facility] Last Admin: 01/14/18 09:34 Dose: 2,000 intlu Famotidine (Pepcid) 20 mg PO DAILY [facility] Last Admin: 01/14/18 09:34 Dose: 20 mg Gabapentin (Neurontin) 100 mg PO DAILY [facility] PRN Reason: Protocol Last Admin: 01/14/18 09:40 Dose: Not Given Heparin Sodium (Porcine) (Heparin) 5,000 units SC Q8 ROMI PRN Reason: Protocol Last Admin: 01/14/18 13:16 Dose: 5,000 units Hydroxyzine HCl (Atarax) 25 mg PO BID PRN PRN Reason: Anxiety Ibuprofen (Motrin Tab) 800 mg PO Q8H PRN PRN Reason: Pain, severe (8-10) Last Admin: 01/13/18 17:42 Dose: 800 mg Insulin Human Regular (Humulin R Low) 0 units SC ACHS [facility] PRN Reason: Protocol Last Admin: 01/14/18 14:57 Dose: Not Given Levofloxacin (Levaquin) 750 mg PO DAILY [facility] PRN Reason: Protocol Last Admin: 01/14/18 09:33 Dose: 750 mg Linezolid (Zyvox) 600 mg PO BID [facility] PRN Reason: Protocol Last Admin: 01/14/18 09:35 Dose: 600 mg Losartan Potassium (Cozaar) 50 mg PO DAILY [facility] Last Admin: 01/14/18 09:31 Dose: 50 mg Tramadol HCl (Ultram) 50 mg PO Q6 PRN PRN Reason: Pain, moderate (4-7) Last Admin: 01/14/18 08:32 Dose: 50 mg - Constitutional Appears: Well, Non-toxic, No Acute Distress - Extremities Exam Additional comments: RLE focused exam: Vasc: DP 2/4 b/l. PT couldn't be palpated due to edema B/L. Cap refill < 3 sec in all digits. Temperature gradient warm to warm from proximal to distal WNL. Severe non pitting edema extending up to the tibial tuberosity b/l.. Neuro: Epicritic and protective sensation grossly intact b/l Derm: An open ulcer [id number] in the the anterior aspect of the right leg at the mid-leg position . Minimal serous drainage noted. No malodor. No probing to bone, No undermining. No erythema. no clinical signs of infection. Wound base is 100% granular. Bilateral skin changes (hyperpigmentation and lichnification) of the legs. MSK: Minimal pain on palpation of ulceration. Muscle power intact 5/5 in all groups. - Neurological Exam Neurological Exam: Alert, Awake, Oriented x3 - Psychiatric Exam Psychiatric exam: Normal Affect, Normal Mood Assessment and Plan - Assessment and Plan (Free Text) Assessment: 42F seen and evaluated at bedside for lateral right leg wound Plan: Patient seen and evaluated Plan discussed with Dr. Salmeron Afebrile Wound cx R leg Proteus Mirabilis, E coli Continue abx per ID Tib/fib radiographs: unremarkable Arterial waveforms normal to RLE LE CT read pending Wound dressed with optifoam No plan for surgical intervention at this time Podiatry will continue to follow while patient in house
--- NOTE | 2018-01-14 16:18 | CT ---
Date of service: 01/13/2018 PROCEDURE: CT right lower extremity HISTORY: lower limb ulcer COMPARISON: Not available TECHNIQUE: 2.5 mm contiguous axial sections were acquired through the right lower extremity from the distal femur through the ankle. Sagittal and coronal images were reformatted from the axial scan. Total exam DLP: 1218.08 mGy-cm. This CT exam was performed using 1 or more of the following dose reduction techniques: Automated exposure control, adjustment of the mA and/or kV according to patient size, and/or use of iterative reconstruction technique. FINDINGS: In the medial aspect of the distal thigh bilaterally there is cutaneous thickening noted. There is edema/inflammatory change in the subcutaneous soft tissues deep to this thickened skin on the right side. No such inflammatory changes seen on the left side. This may reflect focal cellulitis. Please correlate clinically. There is cellulitis of the anterior distal lower extremity just proximal to the level of the ankle. There is skin thickening over the entire anterior aspect of the extremity. There is stranding of the subcutaneous fat deep to the thickened skin. There is no abscess. There are extensive varices seen within the subcutaneous soft tissues. The underlying bone is unremarkable. There is no periosteal reaction or osseous erosion. IMPRESSION: Cellulitis of anterior distal lower extremity. No evidence of abscess. No evidence of osteomyelitis. Possible cellulitis of the medial distal thigh bilaterally. Please correlate clinically. The preliminary findings for this examination were reported by [facility] at 10:30 p.m. on 01/13/2018. There is concurrence of this report with the preliminary findings.
[2018-01-15 08:09] LABS: BASO # 0.01 K/mm3 (0.0-2.0); BASO % 0.2 % (0.0-3.0); EOS # 0.2 (0.0-0.7); GRAN # 3.93 (1.4-6.5); MEAN CELL VOLUME 84.4 fl (80.0-105.0); MEAN CORPUSCULAR HEMOGLOBIN 25.6 pg (25.0-35.0); MEAN CORPUSCULAR HGB CONC 30.3 g/dl (31.0-37.0); MEAN PLATELET VOLUME 9.6 fl (7.0-11.0); MONO # 0.5 (0.1-0.6); MONO % 7.8 % (1.0-6.0); RBC 4.3 10^6/uL (3.5-6.1); RED CELL DISTRIBUTION WIDTH 17.2 % (11.5-14.5); WHITE BLOOD COUNT 6.7 10^3/ul (4.5-11.0)
[2018-01-15 08:34] LABS: ALB/GLOB RATIO 1.1 (1.1-1.8); ALBUMIN 4.1 g/dL (3.0-4.8); ALT/SGPT 22 U/L (7-56); AST/SGOT 22 U/L (14-36); BLOOD UREA NITROGEN 13 mg/dL (7-21); CALCIUM 9.9 mg/dL (8.4-10.5); GFR NON-AFRICAN AMERICAN > 60
[2018-01-15] MEDS: Insulin Reg-LOW-Coverage SC SCH ×4 (09:36→22:46)
[2018-01-15] MEDS: Cholecalciferol 1,000 INTLU TAB PO SCH (09:37)
[2018-01-15] MEDS: levoFLOXacin 750 MG TAB PO SCH (09:43)
--- NOTE | 2018-01-15 11:21 | CP.PCM.PN ---
Subjective - Date & Time of Evaluation Date of Evaluation: 01/15/18 Time of Evaluation: 11:18 - Subjective Subjective: Podiatry Progress Note for Dr. Salmeron 42F seen and evaluated at bedside for lateral right leg wound. Patient is AAO x 3 and NAD, resting comfortably in bed. Denies any acute overnight events or new pedal complaints. States that pain is well controlled but does mention that she feels her compression stocking is a little too tight. Denies any recent N/V/F/C/ CP/SOB Objective - Vital Signs/Intake and Output Vital Signs (last 24 hours): Temp Pulse Resp BP Pulse Ox 97.5 F L 85 20 124/69 99 01/15/18 09:04 01/15/18 09:35 01/15/18 09:04 01/15/18 09:35 01/15/18 09:04 - Medications Medications: Current Medications Allopurinol (Zyloprim) 100 mg PO DAILY [facility] Last Admin: 01/15/18 09:37 Dose: 100 mg Amlodipine Besylate (Norvasc) 5 mg PO DAILY [facility] Last Admin: 01/15/18 09:37 Dose: 5 mg Aspirin (Aspirin Chewable) 81 mg PO DAILY [facility] Last Admin: 01/15/18 09:35 Dose: 81 mg Atorvastatin Calcium (Lipitor) 40 mg PO HS [facility] Last Admin: 01/14/18 21:56 Dose: 40 mg Cholecalciferol (Vitamin D) 2,000 intlu PO DAILY [facility] Last Admin: 01/15/18 09:37 Dose: 2,000 intlu Famotidine (Pepcid) 20 mg PO DAILY [facility] Last Admin: 01/15/18 09:37 Dose: 20 mg Gabapentin (Neurontin) 100 mg PO HS [facility] PRN Reason: Protocol Heparin Sodium (Porcine) (Heparin) 5,000 units SC Q8 ROMI PRN Reason: Protocol Last Admin: 01/15/18 05:20 Dose: 5,000 units Hydroxyzine HCl (Atarax) 25 mg PO BID PRN PRN Reason: Anxiety Ibuprofen (Motrin Tab) 800 mg PO Q8H PRN PRN Reason: Pain, severe (8-10) Last Admin: 01/14/18 19:09 Dose: 800 mg Insulin Human Regular (Humulin R Low) 0 units SC [facility] PRN Reason: Protocol Last Admin: 01/15/18 09:36 Dose: Not Given Levofloxacin (Levaquin) 750 mg PO DAILY [facility] PRN Reason: Protocol Last Admin: 01/15/18 09:43 Dose: 750 mg Linezolid (Zyvox) 600 mg PO BID [facility] PRN Reason: Protocol Last Admin: 01/15/18 09:37 Dose: 600 mg Losartan Potassium (Cozaar) 50 mg PO DAILY [facility] Last Admin: 01/15/18 09:35 Dose: 50 mg Tramadol HCl (Ultram) 50 mg PO Q6 PRN PRN Reason: Pain, moderate (4-7) Last Admin: 01/14/18 16:33 Dose: 50 mg - Labs Labs: 01/15/18 06:30 01/15/18 06:30 - Constitutional Appears: Well, Non-toxic, No Acute Distress - Extremities Exam Additional comments: RLE focused exam: Vasc: DP 2/4 b/l. PT couldn't be palpated due to edema B/L. Cap refill < 3 sec in all digits. Temperature gradient warm to warm from proximal to distal WNL. Severe non pitting edema extending up to the tibial tuberosity b/l.. Neuro: Epicritic and protective sensation grossly intact b/l Derm: An open ulcer [id number] in the the anterior aspect of the right leg at the mid-leg position . Minimal serous drainage noted. No malodor. No probing to bone, No undermining, tracking or tunneling. No erythema. no clinical signs of infection. Wound base is 100% granular. Bilateral skin changes ( hyperpigmentation and lichnification) of the legs seen to be improving at this time MSK: Minimal pain on palpation of ulceration. Muscle power intact 5/5 in all groups. - Neurological Exam Neurological Exam: Alert, Awake, Oriented x3 - Psychiatric Exam Psychiatric exam: Normal Affect, Normal Mood Assessment and Plan - Assessment and Plan (Free Text) Assessment: 42F seen and evaluated at bedside for lateral right leg wound Plan: Patient seen and evaluated Plan discussed with Dr. Salmeron Afebrile Wound cx R leg Proteus Mirabilis, E coli Continue abx per ID Tib/fib radiographs: unremarkable Arterial waveforms normal to RLE LE CT: Cellulitis of anterior distal lower extremity. No evidence of abscess. No evidence of osteomyelitis. Possible cellulitis of the medial distal thigh bilaterally. Wound dressed with optifoam and compression stocking No plan for surgical intervention at this time Podiatry will continue to follow while patient in house
--- NOTE | 2018-01-15 11:55 | CP.PCM.DIS ---
Provider - Provider Date of Admission: 01/13/18 16:50 Attending physician: Supriya Rizvi MD Primary care physician: Juanito Grady Consults: ID podiatry pain management IR Time Spent in preparation of Discharge (in minutes): 45 Diagnosis - Discharge Diagnosis (1) Right leg pain Status: Acute Priority: High (2) Ulcer Status: Acute Priority: High (3) Diabetes Status: Chronic Priority: Medium (4) Morbid obesity Status: Chronic Priority: Medium (5) HTN (hypertension) Status: Chronic Priority: Medium (6) HLD (hyperlipidemia) Status: Chronic Priority: Medium Hospital Course - Lab Results Lab Results: Most Recent Lab Values WBC 6.7 10^3/ul (4.5-11.0) 01/15/18 06:30 RBC 4.30 10^6/uL (3.5-6.1) 01/15/18 06:30 Hgb 11.0 g/dL (12.0-16.0) L 01/15/18 06:30 Hct 36.3 % (36.0-48.0) 01/15/18 06:30 MCV 84.4 fl (80.0-105.0) 01/15/18 06:30 MCH 25.6 pg (25.0-35.0) 01/15/18 06:30 MCHC 30.3 g/dl (31.0-37.0) L 01/15/18 06:30 RDW 17.2 % (11.5-14.5) H 01/15/18 06:30 Plt Count 278 10^3/uL (120.0-450.0) 01/15/18 06:30 MPV 9.6 fl (7.0-11.0) 01/15/18 06:30 Gran % 59.0 % (50.0-68.0) 01/15/18 06:30 Lymph % (Auto) 30.0 % (22.0-35.0) 01/15/18 06:30 [place] % (Auto) 7.8 % (1.0-6.0) H 01/15/18 06:30 Eos % (Auto) 3.0 % (1.5-5.0) 01/15/18 06:30 Baso % (Auto) 0.2 % (0.0-3.0) 01/15/18 06:30 Gran # 3.93 (1.4-6.5) 01/15/18 06:30 Lymph # (Auto) 2.0 (1.2-3.4) 01/15/18 06:30 [place] # (Auto) 0.5 (0.1-0.6) 01/15/18 06:30 Eos # (Auto) 0.2 (0.0-0.7) 01/15/18 06:30 Baso # (Auto) 0.01 K/mm3 (0.0-2.0) 01/15/18 06:30 ESR 37 mm/hr (0.0-20.0) H 01/12/18 17:08 Sodium 139 mmol/L (132-148) 01/15/18 06:30 Potassium 4.5 mmol/L (3.6-5.0) 01/15/18 06:30 Chloride 100 mmol/L (98-107) 01/15/18 06:30 Carbon Dioxide 31 mmol/L (21-33) 01/15/18 06:30 Anion Gap 13 (10-20) 01/15/18 06:30 BUN 13 mg/dL (7-21) 01/15/18 06:30 Creatinine 0.7 mg/dl (0.7-1.2) 01/15/18 06:30 Est GFR ( Amer) > 60 01/15/18 06:30 Est GFR (Non-Af Amer) > 60 01/15/18 06:30 POC Glucose (mg/dL) 94 mg/dL (65-110) 01/15/18 08:02 Random Glucose 103 mg/dL (70-110) 01/15/18 06:30 Hemoglobin A1c 6.7 % (4.2-6.5) H 01/13/18 06:00 Calcium 9.9 mg/dL (8.4-10.5) 01/15/18 06:30 Total Bilirubin 0.4 mg/dL (0.2-1.3) 01/15/18 06:30 AST 22 U/L (14-36) 01/15/18 06:30 ALT 22 U/L (7-56) 01/15/18 06:30 Alkaline Phosphatase 71 U/L (38-126) 01/15/18 06:30 C-React Prot High Sens 10.31 mg/L (1.00-3.00) H 01/14/18 10:00 Total Protein 7.9 g/dL (5.8-8.3) 01/15/18 06:30 Albumin 4.1 g/dL (3.0-4.8) 01/15/18 06:30 Globulin 3.8 gm/dL 01/15/18 06:30 Albumin/Globulin Ratio 1.1 (1.1-1.8) 01/15/18 06:30 - Hospital Course Hospital Course: Pt is a 42 yo female with PMH of morbid obesity, hypertension, hyperlipidemia, diabetes mellitus, chronic venous ulcers, non healing right griffin wound, fibroid uterus and peripheral neuropathy who presented with a right LE wound. Pt has had this wound for about a year. Pt right lower extremity was evaluated using dopper for DVT, x ray to rule out fracture, an CT to determine she had cellulitis and to rule out osteomyelitits. During her admission ID, pain management, podiatry and IR were consulted to evaluate the pt. Pt was placed on zyvox and levoquine, because IV access was difficult to obtain and maintain. Pt will be discharged on oral antibiotics doxycycline and augmentin. Pt is advised to follow up with her primary care physician. - Date & Time of H&P Date of H&P: 01/15/18 Time of H&P: 07:00 Discharge Exam - Head Exam Head Exam: ATRAUMATIC, NORMOCEPHALIC - Eye Exam Eye Exam: EOMI - ENT Exam ENT Exam: Mucous Membranes Moist - Respiratory Exam Respiratory Exam: NORMAL BREATHING PATTERN - Cardiovascular Exam Cardiovascular Exam: RRR - GI/Abdominal Exam GI & Abdominal Exam: Normal Bowel Sounds - Extremities Exam Extremities exam: pedal edema Additional comments: pt right leg is bandaged, the dressing is clean, dry and intact - Neurological Exam Neurological exam: Alert, Oriented x3 - Psychiatric Exam Psychiatric exam: Normal Affect, Normal Mood - Skin Skin Exam: Normal Color, Warm Discharge Plan - Follow Up Plan Condition: FAIR Disposition: HOME/ ROUTINE Additional Instructions: 1. Please follow up with your primary care physician within 3-5 days. 2. Please continue to take your home meds as advised by your physician 3. You are being treated as an out pt for right leg cellulitis. 4. Please take your Augmentin prescription as directed, and please finish the entire course of antibiotics 5. If your symptoms return or worsen, please go to the nearest emergency department. Referrals: Juanito Grady MD [Primary Care Provider] - Follow up with primary
[2018-01-15] MEDS: Meropenem IV 1 gm in NS 50 ML IVPB SCH ×2 (14:47→22:48)
--- NOTE | 2018-01-15 15:17 | PN ---
DATE: 01/15/2018 SUBJECTIVE: The patient is seen earlier in room 369, bed 2. No fevers. No chills. PHYSICAL EXAMINATION: VITAL SIGNS: On exam, temperature is 97, blood pressure is 124/60, respiratory rate of 16. HEENT: Examination of HEENT is unremarkable. NECK: Supple. LUNGS: Have decreased breath sounds. HEART: Normal S1, S2. ABDOMEN: Soft, nontender. LABORATORY DATA: Laboratory examination reveals the patient to have a white count of 6.7, hemoglobin 11. Chemistries are noted. Microbiology is noted. ASSESSMENT AND PLAN: A 42-year-old female with super morbid obesity with body mass index of 76 with dyslipidemia, hypertension, diabetes, chronic leg ulcer, especially on the right leg with a right leg skin and skin structure with a gram-negative jignesh, on vancomycin, cefepime. The patient had a CAT scan of the leg, which showed cellulitis. No evidence of abscess. No evidence of osteomyelitis. The culture is growing Proteus mirabilis and Escherichia coli. The Proteus mirabilis is sensitive to meropenem. The Escherichia coli is extended-spectrum beta-lactamase positive. There is also a Staphylococcus aureus from the right leg from 12/2017, which is sensitive Staphylococcus aureus. Currently, on Zyvox and Levaquin. IV access is an issue. We will start the patient on meropenem and discontinue the Levaquin. We will follow with you. Davion Kaiser MD
--- NOTE | 2018-01-15 15:23 | CP.PCM.PN ---
Subjective - Date & Time of Evaluation Date of Evaluation: 01/15/18 Time of Evaluation: 06:00 - Subjective Subjective: Pt seen and examined this morning. Pt denies chest pain or SOB. Admits to leg pain Objective - Vital Signs/Intake and Output Vital Signs (last 24 hours): Temp Pulse Resp BP Pulse Ox 97.5 F L 85 20 124/69 99 01/15/18 09:04 01/15/18 09:35 01/15/18 09:04 01/15/18 09:35 01/15/18 09:04 - Medications Medications: Current Medications Allopurinol (Zyloprim) 100 mg PO DAILY [facility] Last Admin: 01/15/18 09:37 Dose: 100 mg Amlodipine Besylate (Norvasc) 5 mg PO DAILY [facility] Last Admin: 01/15/18 09:37 Dose: 5 mg Aspirin (Aspirin Chewable) 81 mg PO DAILY [facility] Last Admin: 01/15/18 09:35 Dose: 81 mg Atorvastatin Calcium (Lipitor) 40 mg PO HS [facility] Last Admin: 01/14/18 21:56 Dose: 40 mg Cholecalciferol (Vitamin D) 2,000 intlu PO DAILY [facility] Last Admin: 01/15/18 09:37 Dose: 2,000 intlu Famotidine (Pepcid) 20 mg PO DAILY [facility] Last Admin: 01/15/18 09:37 Dose: 20 mg Gabapentin (Neurontin) 100 mg PO HS [facility] PRN Reason: Protocol Heparin Sodium (Porcine) (Heparin) 5,000 units SC Q8 [facility] PRN Reason: Protocol Last Admin: 01/15/18 14:50 Dose: 5,000 units Hydroxyzine HCl (Atarax) 25 mg PO BID PRN PRN Reason: Anxiety Meropenem (Merrem Iv 1 Gm Premix) 50 mls @ 100 mls/hr IVPB Q8 [facility] PRN Reason: Protocol Stop: 01/24/18 14:01 Last Admin: 01/15/18 14:47 Dose: 100 mls/hr Ibuprofen (Motrin Tab) 800 mg PO Q8H PRN PRN Reason: Pain, severe (8-10) Last Admin: 01/14/18 19:09 Dose: 800 mg Insulin Human Regular (Humulin R Low) 0 units SC ACHS [facility] PRN Reason: Protocol Last Admin: 01/15/18 09:36 Dose: Not Given Linezolid (Zyvox) 600 mg PO BID [facility] PRN Reason: Protocol Last Admin: 01/15/18 09:37 Dose: 600 mg Losartan Potassium (Cozaar) 50 mg PO DAILY [facility] Last Admin: 01/15/18 09:35 Dose: 50 mg Tramadol HCl (Ultram) 50 mg PO Q6 PRN PRN Reason: Pain, moderate (4-7) Last Admin: 01/14/18 16:33 Dose: 50 mg - Labs Labs: 01/15/18 06:30 01/15/18 06:30 - Constitutional Appears: No Acute Distress - Head Exam Head Exam: ATRAUMATIC, NORMOCEPHALIC - ENT Exam ENT Exam: Mucous Membranes Moist - Respiratory Exam Respiratory Exam: Clear to Ausculation Bilateral, NORMAL BREATHING PATTERN - Cardiovascular Exam Cardiovascular Exam: REGULAR RHYTHM - GI/Abdominal Exam GI & Abdominal Exam: Normal Bowel Sounds - Extremities Exam Additional comments: RLE bandaged - Neurological Exam Neurological Exam: Alert, Awake, Oriented x3 - Psychiatric Exam Psychiatric exam: Normal Affect, Normal Mood - Skin Skin Exam: Dry, Normal Color, Warm Assessment and Plan (1) Right leg pain Status: Acute (2) Ulcer Status: Acute (3) Diabetes Status: Chronic (4) Morbid obesity Status: Chronic (5) HTN (hypertension) Status: Chronic (6) HLD (hyperlipidemia) Status: Chronic - Assessment and Plan (Free Text) Assessment: Pt is a 42 year old female with PMH of morbid obesity, HTN, HLD, DM, chronic venous ulcers, non healing right griffin wound, fibroid uterus and peripheral neuropathy being managed in hospital for intractable pain in right lower leg wound. Plan: Chronic non healing ulcer with intractable pain - duplex LE: limited study due to body habitus. The calf, ankle, and metatarsal waveforms are normal symmetric bilaterally - ID: continue PO Zyvox 600mg PO BID, start Meropenem 1 gram IVPB Q8 - continue allopurinol 100mg PO daily - tramadol 50mg PO q6 PRN - Podiatry, Dr. Salmeron: no plan for surgical intervention at this time - Pain management, Dr. Britton - CT LE: cellulitis of anterior distal LE. No evidence of abscess, osteomyelitits. - order PICC line Morbid Obesity - consistent carb diet - fall precautions - activity as tolerated Hx HLD - continue lipitor 40mg Hx of DM - SSI, finger sticks - HA1C 6.7 Hx HTN - amlodipine 5mg - cozaar 50mg Hx Peripheral Neuropathy - gabapentin 100mg PO daily Ppx - pepcid 20mg PO daily - heparin Pt seen, examined, assessment and plan discussed with Dr Belkys Alejandro PGY1 Internal Medicine Resident
[2018-01-16] MEDS: Meropenem IV 1 gm in NS 50 ML IVPB SCH ×3 (05:55→21:26)
[2018-01-16 08:01] LABS: BASO # 0.01 K/mm3 (0.0-2.0); BASO % 0.2 % (0.0-3.0); EOS # 0.2 (0.0-0.7); EOS % 2.9 % (1.5-5.0); GRAN # 3.76 (1.4-6.5); GRAN % 59.7 % (50.0-68.0); HEMOGLOBIN 11.6 g/dL (12.0-16.0); LYMPH # 1.8 (1.2-3.4); LYMPH % 29.3 % (22.0-35.0); MEAN CELL VOLUME 84.4 fl (80.0-105.0); MEAN CORPUSCULAR HEMOGLOBIN 25.8 pg (25.0-35.0); MEAN CORPUSCULAR HGB CONC 30.5 g/dl (31.0-37.0); MEAN PLATELET VOLUME 9.9 fl (7.0-11.0); MONO # 0.5 (0.1-0.6); MONO % 7.9 % (1.0-6.0); RBC 4.5 10^6/uL (3.5-6.1); RED CELL DISTRIBUTION WIDTH 17.2 % (11.5-14.5); WHITE BLOOD COUNT 6.3 10^3/ul (4.5-11.0)
[2018-01-16 08:14] LABS: ALB/GLOB RATIO 1.1 (1.1-1.8); ALBUMIN 4.3 g/dL (3.0-4.8); ALT/SGPT 24 U/L (7-56); AST/SGOT 19 U/L (14-36); BLOOD UREA NITROGEN 15 mg/dL (7-21); CALCIUM 10.2 mg/dL (8.4-10.5); GFR NON-AFRICAN AMERICAN > 60
[2018-01-16] MEDS: Insulin Reg-LOW-Coverage SC SCH ×4 (09:00→21:25)
[2018-01-16] MEDS: Cholecalciferol 1,000 INTLU TAB PO SCH (09:47)
--- NOTE | 2018-01-16 15:05 | CP.PCM.PN ---
<Yi Valentin - Last Filed: 01/16/18 17:40> Subjective - Date & Time of Evaluation Date of Evaluation: 01/16/18 Time of Evaluation: 15:03 - Subjective Subjective: Yi Valentin PGY1 Progress Note for Dr. Tracy Pt was examined at beside this morning. She reported improvement in the Right leg pain, which she rated a 7/10. She denied any headache, chest pain, fever shortness of breath, abdominal pain, nausea, vomiting, diarrhea. She reported only slight drainage from the wound site. Objective - Vital Signs/Intake and Output Vital Signs (last 24 hours): Temp Pulse Resp BP Pulse Ox 99.1 F 89 20 130/72 99 01/16/18 07:44 01/16/18 09:46 01/16/18 07:44 01/16/18 09:46 01/16/18 07:44 - Medications Medications: Current Medications Allopurinol (Zyloprim) 100 mg PO DAILY [facility] Last Admin: 01/16/18 09:47 Dose: 100 mg Amlodipine Besylate (Norvasc) 5 mg PO DAILY [facility] Last Admin: 01/16/18 09:46 Dose: 5 mg Aspirin (Aspirin Chewable) 81 mg PO DAILY [facility] Last Admin: 01/16/18 09:46 Dose: 81 mg Atorvastatin Calcium (Lipitor) 40 mg PO HS [facility] Last Admin: 01/15/18 22:47 Dose: 40 mg Cholecalciferol (Vitamin D) 2,000 intlu PO DAILY [facility] Last Admin: 01/16/18 09:47 Dose: 2,000 intlu Famotidine (Pepcid) 20 mg PO DAILY [facility] Last Admin: 01/16/18 09:46 Dose: 20 mg Gabapentin (Neurontin) 100 mg PO HS [facility] PRN Reason: Protocol Last Admin: 01/15/18 22:48 Dose: 100 mg Heparin Sodium (Porcine) (Heparin) 5,000 units SC Q8 [facility] PRN Reason: Protocol Last Admin: 01/16/18 14:28 Dose: 5,000 units Hydroxyzine HCl (Atarax) 25 mg PO BID PRN PRN Reason: Anxiety Meropenem (Merrem Iv 1 Gm Premix) 50 mls @ 100 mls/hr IVPB Q8 [facility] PRN Reason: Protocol Stop: 01/24/18 14:01 Last Admin: 01/16/18 14:27 Dose: 100 mls/hr Ibuprofen (Motrin Tab) 800 mg PO Q8H PRN PRN Reason: Pain, severe (8-10) Last Admin: 01/16/18 14:35 Dose: 800 mg Insulin Human Regular (Humulin R Low) 0 units SC ACHS [facility] PRN Reason: Protocol Last Admin: 01/16/18 11:55 Dose: Not Given Linezolid (Zyvox) 600 mg PO BID [facility] PRN Reason: Protocol Last Admin: 01/16/18 09:45 Dose: 600 mg Losartan Potassium (Cozaar) 50 mg PO DAILY [facility] Last Admin: 01/16/18 09:46 Dose: 50 mg Tramadol HCl (Ultram) 50 mg PO Q6 PRN PRN Reason: Pain, moderate (4-7) Last Admin: 01/15/18 22:49 Dose: 50 mg - Labs Labs: 01/16/18 07:30 01/16/18 07:30 - Constitutional Appears: Well, No Acute Distress - Head Exam Head Exam: ATRAUMATIC, NORMOCEPHALIC - Neck Exam Neck Exam: Normal Inspection - Respiratory Exam Respiratory Exam: Clear to Ausculation Bilateral, NORMAL BREATHING PATTERN - Cardiovascular Exam Cardiovascular Exam: REGULAR RHYTHM, +S1, +S2 - GI/Abdominal Exam GI & Abdominal Exam: Soft, Normal Bowel Sounds. absent: Tenderness Additional comments: large habitus - Extremities Exam Extremities Exam: Pedal Edema Additional comments: RUE: picc line placed, site clean dry and intact RLE: 8x4cm wound with slight erythema and granulation tissue. slight clear drainage. - Neurological Exam Neurological Exam: Alert, Awake, Oriented x3 - Psychiatric Exam Psychiatric exam: Normal Affect, Normal Mood Assessment and Plan - Assessment and Plan (Free Text) Assessment: 42 yo F with PMH of morbid obesity, HTN, HLD, DM, chronic venous ulcers, non healing right griffin wound, fibroid uterus and peripheral neuropathy admitted for intractable pain in right lower leg wound. Plan: Chronic non healing ulcer with intractable pain - Wound Cx: ESBL + - duplex LE US: limited study due to body habitus. calf, ankle, and metatarsal waveforms are normal symmetric bilaterally - CT LE: cellulitis of anterior distal LE. No evidence of abscess, osteomyelitits. - continue Zyvox 600mg PO BID, Meropenem 1 gram IVPB Q8 as per ID - continue allopurinol 100mg PO daily - tramadol 50mg PO q6 PRN for pain - PICC line placed - Podiatry consulted, Dr. Salmeron: no plan for surgical intervention at this time, continue wound dressing - ID consulted, recs appreciated: f/u proposed length of treatment Morbid Obesity - BMI 76.2 - consistent carb diet - fall precautions - activity as tolerated HLD - continue lipitor 40mg DM - continue SSI, finger sticks 01/15-01/16 102, 148, 93, 107, 112 - HbA1C 6.7 HTN - BP 130/72 - continue amlodipine 5mg - continue cozaar 50mg Peripheral Neuropathy - continue gabapentin 100mg PO daily Ppx - pepcid 20mg PO daily - heparin Pt seen, examined, assessment and plan discussed with Dr Tracy. <Aminata Tracy - Last Filed: 01/16/18 17:59> Objective - Vital Signs/Intake and Output Vital Signs (last 24 hours): Temp Pulse Resp BP Pulse Ox 99.1 F 89 20 130/72 99 01/16/18 07:44 01/16/18 09:46 01/16/18 07:44 01/16/18 09:46 01/16/18 07:44 - Medications Medications: Current Medications Allopurinol (Zyloprim) 100 mg PO DAILY [facility] Last Admin: 01/16/18 09:47 Dose: 100 mg Amlodipine Besylate (Norvasc) 5 mg PO DAILY [facility] Last Admin: 01/16/18 09:46 Dose: 5 mg Aspirin (Aspirin Chewable) 81 mg PO DAILY [facility] Last Admin: 01/16/18 09:46 Dose: 81 mg Atorvastatin Calcium (Lipitor) 40 mg PO HS [facility] Last Admin: 01/15/18 22:47 Dose: 40 mg Cholecalciferol (Vitamin D) 2,000 intlu PO DAILY [facility] Last Admin: 01/16/18 09:47 Dose: 2,000 intlu Famotidine (Pepcid) 20 mg PO DAILY [facility] Last Admin: 01/16/18 09:46 Dose: 20 mg Gabapentin (Neurontin) 100 mg PO HS [facility] PRN Reason: Protocol Last Admin: 01/15/18 22:48 Dose: 100 mg Heparin Sodium (Porcine) (Heparin) 5,000 units SC Q8 [facility] PRN Reason: Protocol Last Admin: 01/16/18 14:28 Dose: 5,000 units Hydroxyzine HCl (Atarax) 25 mg PO BID PRN PRN Reason: Anxiety Meropenem (Merrem Iv 1 Gm Premix) 50 mls @ 100 mls/hr IVPB Q8 [facility] PRN Reason: Protocol Stop: 01/24/18 14:01 Last Admin: 01/16/18 14:27 Dose: 100 mls/hr Ibuprofen (Motrin Tab) 800 mg PO Q8H PRN PRN Reason: Pain, severe (8-10) Last Admin: 01/16/18 14:35 Dose: 800 mg Insulin Human Regular (Humulin R Low) 0 units SC ACHS [facility] PRN Reason: Protocol Last Admin: 01/16/18 16:03 Dose: Not Given Linezolid (Zyvox) 600 mg PO BID [facility] PRN Reason: Protocol Last Admin: 01/16/18 17:37 Dose: 600 mg Losartan Potassium (Cozaar) 50 mg PO DAILY [facility] Last Admin: 01/16/18 09:46 Dose: 50 mg Tramadol HCl (Ultram) 50 mg PO Q6 PRN PRN Reason: Pain, moderate (4-7) Last Admin: 01/15/18 22:49 Dose: 50 mg - Labs Labs: 01/16/18 07:30 01/16/18 07:30 Attending/Attestation - Attestation I have personally seen and examined this patient.: Yes I have fully participated in the care of the patient.: Yes I have reviewed all pertinent clinical information, including history, physical exam and plan: Yes Notes (Text): 01/16/18 17:56 42 year old female with past medical history of hypertension, obesity, diabetes and chronic venous ulcers and nonhealing right griffin wound who presented with intractable pain from chronic right leg wound. Wound culture is ESBL +. Patient is on meropenem and zvyox as per ID. Podiatry is also following. She is on tramadol prn for pain. Aminata Tracy MD Hospitalist.
--- NOTE | 2018-01-16 15:46 | CP.PCM.PN ---
<Mesfin Vergara - Last Filed: 01/16/18 17:28> Subjective - Date & Time of Evaluation Date of Evaluation: 01/16/18 Time of Evaluation: 17:28 - Subjective Subjective: Podiatry Progress Note for Dr. Salmeron 42 Y/O F patient seen and evaluated at bedside for lateral right leg wound. Patient is AAO x 3 and NAD, resting comfortably in bed. Denies any acute overnight events or any new pedal complaints. Patient states that pain is well controlled. Patient denies any overnight N/V/F/C/CP/SOB Objective - Vital Signs/Intake and Output Vital Signs (last 24 hours): Temp Pulse Resp BP Pulse Ox 99.1 F 89 20 130/72 99 01/16/18 07:44 01/16/18 09:46 01/16/18 07:44 01/16/18 09:46 01/16/18 07:44 - Medications Medications: Current Medications Allopurinol (Zyloprim) 100 mg PO DAILY [facility] Last Admin: 01/16/18 09:47 Dose: 100 mg Amlodipine Besylate (Norvasc) 5 mg PO DAILY [facility] Last Admin: 01/16/18 09:46 Dose: 5 mg Aspirin (Aspirin Chewable) 81 mg PO DAILY [facility] Last Admin: 01/16/18 09:46 Dose: 81 mg Atorvastatin Calcium (Lipitor) 40 mg PO HS [facility] Last Admin: 01/15/18 22:47 Dose: 40 mg Cholecalciferol (Vitamin D) 2,000 intlu PO DAILY [facility] Last Admin: 01/16/18 09:47 Dose: 2,000 intlu Famotidine (Pepcid) 20 mg PO DAILY [facility] Last Admin: 01/16/18 09:46 Dose: 20 mg Gabapentin (Neurontin) 100 mg PO HS [facility] PRN Reason: Protocol Last Admin: 01/15/18 22:48 Dose: 100 mg Heparin Sodium (Porcine) (Heparin) 5,000 units SC Q8 [facility] PRN Reason: Protocol Last Admin: 01/16/18 14:28 Dose: 5,000 units Hydroxyzine HCl (Atarax) 25 mg PO BID PRN PRN Reason: Anxiety Meropenem (Merrem Iv 1 Gm Premix) 50 mls @ 100 mls/hr IVPB Q8 [facility] PRN Reason: Protocol Stop: 01/24/18 14:01 Last Admin: 01/16/18 14:27 Dose: 100 mls/hr Ibuprofen (Motrin Tab) 800 mg PO Q8H PRN PRN Reason: Pain, severe (8-10) Last Admin: 01/16/18 14:35 Dose: 800 mg Insulin Human Regular (Humulin R Low) 0 units SC ACHS [facility] PRN Reason: Protocol Last Admin: 01/16/18 11:55 Dose: Not Given Linezolid (Zyvox) 600 mg PO BID [facility] PRN Reason: Protocol Last Admin: 01/16/18 09:45 Dose: 600 mg Losartan Potassium (Cozaar) 50 mg PO DAILY [facility] Last Admin: 01/16/18 09:46 Dose: 50 mg Tramadol HCl (Ultram) 50 mg PO Q6 PRN PRN Reason: Pain, moderate (4-7) Last Admin: 01/15/18 22:49 Dose: 50 mg - Labs Labs: 01/16/18 07:30 01/16/18 07:30 - Constitutional Appears: Well, Non-toxic, No Acute Distress - Head Exam Head Exam: ATRAUMATIC, NORMOCEPHALIC - Extremities Exam Additional comments: RLE focused exam: Vasc: DP 2/4 b/l. PT couldn't be palpated due to edema B/L. Cap refill < 3 sec in all digits. Temperature gradient warm to warm from proximal to distal. Severe non pitting edema extending up to the tibial tuberosity b/l.. Neuro: Gross and protective sensation are intact b/l Derm: An open ulcer [id number] in the the anterior aspect of the right leg at the mid-leg position . Minimal serous drainage noted. No malodor. No probing to bone, No undermining, tracking or tunneling. No erythema. no clinical signs of infection. Wound base is 100% granular. Bilateral skin changes (hyp erpigmentation and lichnification) of the legs seen to be improving at this time MSK: Minimal pain on palpation of ulceration. Muscle power intact 5/5 in all groups. - Neurological Exam Neurological Exam: Alert, Awake, Oriented x3 - Psychiatric Exam Psychiatric exam: Normal Affect, Normal Mood Assessment and Plan - Assessment and Plan (Free Text) Assessment: 42F seen and evaluated at bedside for lateral right leg wound Plan: Patient seen and evaluated at the bedside with attending Dr. Salmeron. Plan discussed with Dr. Salmeron Charts, labs and vitals reviewed; Afebrile, WBCs 11.6 Wound cx R leg Proteus Mirabilis, E coli Continue abx per ID Tib/fib radiographs: unremarkable Arterial waveforms normal to RLE LE CT reviewed: Cellulitis of anterior distal lower extremity. No evidence of abscess. No evidence of osteomyelitis. Possible cellulitis of the medial distal thigh bilaterally. Wound dressed with optifoam and compression stocking No plan for surgical intervention at this time Podiatry will continue to follow while patient in house <Ayde Salmeron - Last Filed: 01/18/18 13:23> Objective - Vital Signs/Intake and Output Vital Signs (last 24 hours): Temp Pulse Resp BP Pulse Ox 98.4 F 100 H 20 147/87 97 01/18/18 06:00 01/18/18 09:18 01/18/18 06:00 01/18/18 09:18 01/18/18 06:00 Intake and Output: 01/18/18 01/18/18 06:59 18:59 Intake Total 300 Balance 300 - Medications Medications: Current Medications Allopurinol (Zyloprim) 100 mg PO DAILY [facility] Last Admin: 01/18/18 09:18 Dose: 100 mg Amlodipine Besylate (Norvasc) 5 mg PO DAILY [facility] Last Admin: 01/18/18 09:18 Dose: 5 mg Aspirin (Aspirin Chewable) 81 mg PO DAILY [facility] Last Admin: 01/18/18 09:16 Dose: 81 mg Atorvastatin Calcium (Lipitor) 40 mg PO [facility] Last Admin: 01/17/18 22:09 Dose: 40 mg Cholecalciferol (Vitamin D) 2,000 intlu PO DAILY [facility] Last Admin: 01/18/18 09:18 Dose: 2,000 intlu Famotidine (Pepcid) 40 mg PO DAILY [facility] Last Admin: 01/18/18 09:18 Dose: 40 mg Gabapentin (Neurontin) 100 mg PO HS [facility]; Protocol Last Admin: 01/17/18 22:09 Dose: 100 mg Heparin Sodium (Porcine) (Heparin) 5,000 units SC Q8 [facility]; Protocol Last Admin: 01/18/18 05:29 Dose: 5,000 units Hydroxyzine HCl (Atarax) 25 mg PO BID PRN PRN Reason: Anxiety Meropenem (Merrem Iv 1 Gm Premix) 50 mls @ 100 mls/hr IVPB Q8 [facility]; Protocol Stop: 01/24/18 14:01 Last Admin: 01/18/18 05:29 Dose: 100 mls/hr Ibuprofen (Motrin Tab) 800 mg PO Q8H PRN PRN Reason: Pain, severe (8-10) Last Admin: 01/18/18 05:35 Dose: 800 mg Insulin Human Regular (Humulin R Low) 0 units SC ACHS [facility]; Protocol Last Admin: 01/18/18 12:11 Dose: Not Given Linezolid (Zyvox) 600 mg PO BID [facility]; Protocol Last Admin: 01/18/18 09:19 Dose: 600 mg Losartan Potassium (Cozaar) 50 mg PO DAILY [facility] Last Admin: 01/18/18 09:16 Dose: 50 mg Tramadol HCl (Ultram) 25 mg PO TID PRN PRN Reason: Pain, moderate (4-7) Vitamin A (Vitamin A & D Oint Ud Foilpak) 1 ea TOP BID [facility] Last Admin: 01/18/18 09:18 Dose: 1 ea - Labs Labs: 01/18/18 06:40 01/18/18 06:40 Attending/Attestation - Attestation I have personally seen and examined this patient.: Yes I have fully participated in the care of the patient.: Yes I have reviewed all pertinent clinical information, including history, physical exam and plan: Yes
--- NOTE | 2018-01-16 22:18 | CP.PCM.PN ---
Subjective - Date & Time of Evaluation Date of Evaluation: 01/16/18 Time of Evaluation: 11:20 - Subjective Subjective: No fevers, not in distress. Less pain in the right leg. Objective - Vital Signs/Intake and Output Vital Signs (last 24 hours): Temp Pulse Resp BP Pulse Ox 97.6 F 85 20 130/87 95 01/16/18 20:56 01/16/18 20:56 01/16/18 20:56 01/16/18 20:56 01/16/18 20:56 Intake and Output: 01/16/18 01/17/18 18:59 06:59 Intake Total 1060 Output Total 0 Balance 1060 - Medications Medications: Current Medications Allopurinol (Zyloprim) 100 mg PO DAILY [facility] Last Admin: 01/16/18 09:47 Dose: 100 mg Amlodipine Besylate (Norvasc) 5 mg PO DAILY [facility] Last Admin: 01/16/18 09:46 Dose: 5 mg Aspirin (Aspirin Chewable) 81 mg PO DAILY [facility] Last Admin: 01/16/18 09:46 Dose: 81 mg Atorvastatin Calcium (Lipitor) 40 mg PO HS [facility] Last Admin: 01/16/18 21:25 Dose: 40 mg Cholecalciferol (Vitamin D) 2,000 intlu PO DAILY [facility] Last Admin: 01/16/18 09:47 Dose: 2,000 intlu Famotidine (Pepcid) 20 mg PO DAILY [facility] Last Admin: 01/16/18 09:46 Dose: 20 mg Gabapentin (Neurontin) 100 mg PO HS [facility] PRN Reason: Protocol Last Admin: 01/16/18 21:25 Dose: 100 mg Heparin Sodium (Porcine) (Heparin) 5,000 units SC Q8 [facility] PRN Reason: Protocol Last Admin: 01/16/18 21:26 Dose: 5,000 units Hydroxyzine HCl (Atarax) 25 mg PO BID PRN PRN Reason: Anxiety Meropenem (Merrem Iv 1 Gm Premix) 50 mls @ 100 mls/hr IVPB Q8 [facility] PRN Reason: Protocol Stop: 01/24/18 14:01 Last Admin: 01/16/18 21:26 Dose: 100 mls/hr Ibuprofen (Motrin Tab) 800 mg PO Q8H PRN PRN Reason: Pain, severe (8-10) Last Admin: 01/16/18 14:35 Dose: 800 mg Insulin Human Regular (Humulin R Low) 0 units SC ACHS [facility] PRN Reason: Protocol Last Admin: 01/16/18 21:25 Dose: Not Given Linezolid (Zyvox) 600 mg PO BID [facility] PRN Reason: Protocol Last Admin: 01/16/18 17:37 Dose: 600 mg Losartan Potassium (Cozaar) 50 mg PO DAILY [facility] Last Admin: 01/16/18 09:46 Dose: 50 mg Tramadol HCl (Ultram) 50 mg PO Q6 PRN PRN Reason: Pain, moderate (4-7) Last Admin: 01/16/18 21:33 Dose: 50 mg - Labs Labs: 01/16/18 07:30 01/16/18 07:30 - Constitutional Appears: Chronically Ill - Head Exam Head Exam: NORMAL INSPECTION - Respiratory Exam Respiratory Exam: Decreased Breath Sounds - Cardiovascular Exam Cardiovascular Exam: +S1, +S2 - GI/Abdominal Exam GI & Abdominal Exam: Soft. absent: Tenderness Assessment and Plan - Assessment and Plan (Free Text) Plan: Assessment Right leg skin and skin structure infection associated with chronic leg ulcers, with chronic venous stasis and lymphedema, growing Staph aureus, E. coli, Proteus HTN morbid obesity with BMI 76 dyslipidemia DM chronic leg ulcers especially on the right leg fibroid uterus peripheral neuropathy Plan reviewed CT leg - no osteomyelitis noted - continue Zyvox and Merrem (Day 4) to complete 7-10 days of antibiotics follow up further recommendations of Podiatry
[2018-01-17] MEDS: Meropenem IV 1 gm in NS 50 ML IVPB SCH ×3 (06:33→22:17)
[2018-01-17 06:42] LABS: BASO # 0.01 K/mm3 (0.0-2.0); BASO % 0.1 % (0.0-3.0); EOS # 0.2 (0.0-0.7); EOS % 3.2 % (1.5-5.0); GRAN # 4.46 (1.4-6.5); GRAN % 59.4 % (50.0-68.0); HEMOGLOBIN 11.4 g/dL (12.0-16.0); LYMPH # 2.3 (1.2-3.4); LYMPH % 30.1 % (22.0-35.0); MEAN CELL VOLUME 83.9 fl (80.0-105.0); MEAN CORPUSCULAR HEMOGLOBIN 25.9 pg (25.0-35.0); MEAN CORPUSCULAR HGB CONC 30.9 g/dl (31.0-37.0); MEAN PLATELET VOLUME 9.5 fl (7.0-11.0); MONO # 0.5 (0.1-0.6); MONO % 7.2 % (1.0-6.0); RBC 4.4 10^6/uL (3.5-6.1); RED CELL DISTRIBUTION WIDTH 17.1 % (11.5-14.5); WHITE BLOOD COUNT 7.5 10^3/ul (4.5-11.0)
[2018-01-17 07:13] LABS: ALB/GLOB RATIO 1.2 (1.1-1.8); ALBUMIN 4.1 g/dL (3.0-4.8); ALT/SGPT 20 U/L (7-56); AST/SGOT 23 U/L (14-36); BLOOD UREA NITROGEN 15 mg/dL (7-21); CALCIUM 10.2 mg/dL (8.4-10.5); GFR NON-AFRICAN AMERICAN > 60
[2018-01-17] MEDS: Insulin Reg-LOW-Coverage SC SCH ×4 (07:30→22:08)
[2018-01-17] MEDS: Cholecalciferol 1,000 INTLU TAB PO SCH (10:30)
--- NOTE | 2018-01-17 10:47 | CP.PCM.PN ---
<Mesfin Vergara - Last Filed: 01/17/18 14:16> Subjective - Date & Time of Evaluation Date of Evaluation: 01/17/18 Time of Evaluation: 14:16 - Subjective Subjective: Podiatry Progress Note for Dr. Carlton 42 Y/O F patient seen and evaluated at bedside for lateral right leg wound. Patient is AAO x 3 and NAD, resting comfortably in bed. Patient denies any acute overnight acute events or any new pedal complaints. Patient states that pain is well controlled now. Patient denies any overnight N/V/F/C/CP/SOB. Objective - Vital Signs/Intake and Output Vital Signs (last 24 hours): Temp Pulse Resp BP Pulse Ox 98.2 F 82 20 115/54 L 100 01/17/18 08:49 01/17/18 08:49 01/17/18 08:49 01/17/18 08:49 01/17/18 08:49 Intake and Output: 01/17/18 01/17/18 06:59 18:59 Intake Total 200 Balance 200 - Medications Medications: Current Medications Allopurinol (Zyloprim) 100 mg PO DAILY [facility] Last Admin: 01/16/18 09:47 Dose: 100 mg Amlodipine Besylate (Norvasc) 5 mg PO DAILY [facility] Last Admin: 01/16/18 09:46 Dose: 5 mg Aspirin (Aspirin Chewable) 81 mg PO DAILY [facility] Last Admin: 01/16/18 09:46 Dose: 81 mg Atorvastatin Calcium (Lipitor) 40 mg PO HS [facility] Last Admin: 01/16/18 21:25 Dose: 40 mg Cholecalciferol (Vitamin D) 2,000 intlu PO DAILY [facility] Last Admin: 01/16/18 09:47 Dose: 2,000 intlu Famotidine (Pepcid) 20 mg PO DAILY [facility] Last Admin: 01/16/18 09:46 Dose: 20 mg Gabapentin (Neurontin) 100 mg PO HS [facility]; Protocol Last Admin: 01/16/18 21:25 Dose: 100 mg Heparin Sodium (Porcine) (Heparin) 5,000 units SC Q8 [facility]; Protocol Last Admin: 01/17/18 06:32 Dose: 5,000 units Hydroxyzine HCl (Atarax) 25 mg PO BID PRN PRN Reason: Anxiety Meropenem (Merrem Iv 1 Gm Premix) 50 mls @ 100 mls/hr IVPB Q8 [facility]; Protocol Stop: 01/24/18 14:01 Last Admin: 01/17/18 06:33 Dose: 100 mls/hr Ibuprofen (Motrin Tab) 800 mg PO Q8H PRN PRN Reason: Pain, severe (8-10) Last Admin: 01/16/18 14:35 Dose: 800 mg Insulin Human Regular (Humulin R Low) 0 units SC ACHS [facility]; Protocol Last Admin: 01/16/18 21:25 Dose: Not Given Linezolid (Zyvox) 600 mg PO BID [facility]; Protocol Last Admin: 01/16/18 17:37 Dose: 600 mg Losartan Potassium (Cozaar) 50 mg PO DAILY [facility] Last Admin: 01/16/18 09:46 Dose: 50 mg Tramadol HCl (Ultram) 50 mg PO Q6 PRN PRN Reason: Pain, moderate (4-7) Last Admin: 01/16/18 21:33 Dose: 50 mg - Labs Labs: 01/17/18 06:00 01/17/18 06:00 - Constitutional Appears: Well, Non-toxic, No Acute Distress - Head Exam Head Exam: ATRAUMATIC, NORMOCEPHALIC - Extremities Exam Additional comments: RLE focused exam: Vasc: DP 2/4 b/l. PT couldn't be palpated due to edema B/L. Cap refill < 3 sec in all digits. Temperature gradient warm to warm from proximal to distal. Severe non pitting edema extending up to the tibial tuberosity b/l. Neuro: Gross and protective sensation are intact b/l. Derm: An open ulcer 8.5cmX4.7cmX0.1cm in the the anterior aspect of the right leg at the mid-leg position . Minimal serous drainage noted. No malodor. No probing to bone, No undermining, tracking or tunneling. No erythema. no clinical signs of infection. Wound base is 100% granular. Bilateral skin changes (hyperpigmentation, Xerosis and lichnification) of the legs seen to be improving at this time MSK: Minimal pain on palpation of ulceration. Muscle power intact 5/5 in all groups. - Neurological Exam Neurological Exam: Alert, Awake, Oriented x3 - Psychiatric Exam Psychiatric exam: Normal Affect, Normal Mood Assessment and Plan - Assessment and Plan (Free Text) Assessment: 42 y/o F patient seen and evaluated at bedside for lateral right leg ulcer Plan: Patient seen and evaluated at the bedside with attending Dr. Carlton. Plan discussed with Dr. Carlton Charts, labs and vitals reviewed; Afebrile, WBCs 7.5 Wound cx R leg reviewed; Proteus Mirabilis, E coli Continue abx per ID Tib/fib radiographs: unremarkable Arterial waveforms normal to RLE LE CT reviewed: Cellulitis of anterior distal lower extremity. No evidence of abscess. No evidence of osteomyelitis. Possible cellulitis of the medial distal thigh bilaterally. Ordered A&D ointment to apply topically on the legs BID Wound dressed with optifoam and compression stocking No plan for surgical intervention at this time Podiatry will continue to follow while patient in house <Perry Carlton - Last Filed: 01/17/18 15:47> Objective - Vital Signs/Intake and Output Vital Signs (last 24 hours): Temp Pulse Resp BP Pulse Ox 98.2 F 95 H 20 116/88 100 01/17/18 08:49 01/17/18 10:30 01/17/18 08:49 01/17/18 10:30 01/17/18 08:49 Intake and Output: 01/17/18 01/17/18 06:59 18:59 Intake Total 200 Balance 200 - Medications Medications: Current Medications Allopurinol (Zyloprim) 100 mg PO DAILY [facility] Last Admin: 01/17/18 10:30 Dose: 100 mg Amlodipine Besylate (Norvasc) 5 mg PO DAILY [facility] Last Admin: 01/17/18 10:30 Dose: 5 mg Aspirin (Aspirin Chewable) 81 mg PO DAILY [facility] Last Admin: 01/17/18 10:30 Dose: 81 mg Atorvastatin Calcium (Lipitor) 40 mg PO HS [facility] Last Admin: 01/16/18 21:25 Dose: 40 mg Cholecalciferol (Vitamin D) 2,000 intlu PO DAILY [facility] Last Admin: 01/17/18 10:30 Dose: 2,000 intlu Famotidine (Pepcid) 40 mg PO DAILY [facility] Gabapentin (Neurontin) 100 mg PO HS [facility]; Protocol Last Admin: 01/16/18 21:25 Dose: 100 mg Heparin Sodium (Porcine) (Heparin) 5,000 units SC Q8 [facility]; Protocol Last Admin: 01/17/18 13:53 Dose: 5,000 units Hydroxyzine HCl (Atarax) 25 mg PO BID PRN PRN Reason: Anxiety Meropenem (Merrem Iv 1 Gm Premix) 50 mls @ 100 mls/hr IVPB Q8 [facility]; Protocol Stop: 01/24/18 14:01 Last Admin: 01/17/18 13:58 Dose: 100 mls/hr Ibuprofen (Motrin Tab) 800 mg PO Q8H PRN PRN Reason: Pain, severe (8-10) Last Admin: 01/17/18 14:58 Dose: 800 mg Insulin Human Regular (Humulin R Low) 0 units SC ACHS [facility]; Protocol Last Admin: 01/17/18 11:30 Dose: Not Given Linezolid (Zyvox) 600 mg PO BID [facility]; Protocol Last Admin: 01/17/18 10:30 Dose: 600 mg Losartan Potassium (Cozaar) 50 mg PO DAILY [facility] Last Admin: 01/17/18 10:30 Dose: 50 mg Tramadol HCl (Ultram) 50 mg PO TID PRN PRN Reason: Pain, moderate (4-7) Vitamin A (Vitamin A & D Oint Ud Foilpak) 1 ea TOP BID [facility] - Labs Labs: 01/17/18 06:00 01/17/18 06:00 Attending/Attestation - Attestation I have personally seen and examined this patient.: Yes I have fully participated in the care of the patient.: Yes I have reviewed all pertinent clinical information, including history, physical exam and plan: Yes
--- NOTE | 2018-01-17 14:04 | CP.PCM.PN ---
<Yi Valentin - Last Filed: 01/17/18 17:23> Subjective - Date & Time of Evaluation Date of Evaluation: 01/17/18 Time of Evaluation: 14:00 - Subjective Subjective: Yi Valentin PGY1 Progress Note for Dr. Tracy Pt was examined at bedside this morning. She reported persistence of the pain in her right leg, stable from yesterday. She also reported some upper abdominal pain that she attributes to acid. Pt denied any chest pain, dizziness, shortness of breath, nausea, vomiting, or diarrhea. Objective - Vital Signs/Intake and Output Vital Signs (last 24 hours): Temp Pulse Resp BP Pulse Ox 98.2 F 82 20 115/54 L 100 01/17/18 08:49 01/17/18 08:49 01/17/18 08:49 01/17/18 08:49 01/17/18 08:49 Intake and Output: 01/17/18 01/17/18 06:59 18:59 Intake Total 200 Balance 200 - Medications Medications: Current Medications Allopurinol (Zyloprim) 100 mg PO DAILY [facility] Last Admin: 01/16/18 09:47 Dose: 100 mg Amlodipine Besylate (Norvasc) 5 mg PO DAILY [facility] Last Admin: 01/16/18 09:46 Dose: 5 mg Aspirin (Aspirin Chewable) 81 mg PO DAILY [facility] Last Admin: 01/16/18 09:46 Dose: 81 mg Atorvastatin Calcium (Lipitor) 40 mg PO HS [facility] Last Admin: 01/16/18 21:25 Dose: 40 mg Cholecalciferol (Vitamin D) 2,000 intlu PO DAILY [facility] Last Admin: 01/16/18 09:47 Dose: 2,000 intlu Famotidine (Pepcid) 20 mg PO DAILY [facility] Last Admin: 01/16/18 09:46 Dose: 20 mg Gabapentin (Neurontin) 100 mg PO HS [facility]; Protocol Last Admin: 01/16/18 21:25 Dose: 100 mg Heparin Sodium (Porcine) (Heparin) 5,000 units SC Q8 [facility]; Protocol Last Admin: 01/17/18 06:32 Dose: 5,000 units Hydroxyzine HCl (Atarax) 25 mg PO BID PRN PRN Reason: Anxiety Meropenem (Merrem Iv 1 Gm Premix) 50 mls @ 100 mls/hr IVPB Q8 [facility]; Protocol Stop: 01/24/18 14:01 Last Admin: 01/17/18 06:33 Dose: 100 mls/hr Ibuprofen (Motrin Tab) 800 mg PO Q8H PRN PRN Reason: Pain, severe (8-10) Last Admin: 01/16/18 14:35 Dose: 800 mg Insulin Human Regular (Humulin R Low) 0 units SC ACHS [facility]; Protocol Last Admin: 01/16/18 21:25 Dose: Not Given Linezolid (Zyvox) 600 mg PO BID [facility]; Protocol Last Admin: 01/16/18 17:37 Dose: 600 mg Losartan Potassium (Cozaar) 50 mg PO DAILY [facility] Last Admin: 01/16/18 09:46 Dose: 50 mg Tramadol HCl (Ultram) 50 mg PO TID PRN PRN Reason: Pain, moderate (4-7) - Labs Labs: 01/17/18 06:00 01/17/18 06:00 - Constitutional Appears: Well, No Acute Distress - Head Exam Head Exam: ATRAUMATIC, NORMOCEPHALIC - Neck Exam Neck Exam: Normal Inspection - Respiratory Exam Respiratory Exam: Clear to Ausculation Bilateral, NORMAL BREATHING PATTERN - Cardiovascular Exam Cardiovascular Exam: REGULAR RHYTHM, +S1, +S2 - GI/Abdominal Exam GI & Abdominal Exam: Soft, Tenderness, Normal Bowel Sounds Additional comments: tenderness to palpation of epigastric region. large habitus. - Extremities Exam Extremities Exam: Pedal Edema Additional comments: 4x4cm wound on anterior RLE. mild erythema. granulation tissue. minor drainage. - Neurological Exam Neurological Exam: Awake Assessment and Plan - Assessment and Plan (Free Text) Assessment: 42 yo F with PMH of morbid obesity, HTN, HLD, DM, chronic venous ulcers, non healing right griffin wound, fibroid uterus and peripheral neuropathy admitted for intractable pain in right lower leg wound. Plan: Chronic non healing ulcer with intractable pain - Wound Cx: ESBL+ Staph aureus, E.coli, proteus - Duplex LE US: limited study due to body habitus. calf, ankle, and metatarsal waveforms normal symmetric b/l - CT LE: cellulitis of anterior distal LE. No evidence of abscess, osteomyelitits. - continue Zyvox 600mg PO BID (day 5), Meropenem 1 gram IVPB Q8 (day 3) to complete 7-10 days as per ID - continue allopurinol 100mg PO daily - decrease tramadol 50mg PO TID PRN for pain - PICC line placed - Podiatry consulted, Dr. Salmeron: no plan for surgical intervention at this time, continue wound dressing - ID consulted, Dr. Dinh, recs appreciated Morbid Obesity - BMI 76.2 - consistent carb diet - fall precautions - activity as tolerated HLD - continue lipitor 40mg DM - continue SSI, finger sticks 01/16-01/17 112, 130, 113, - HbA1C 6.7 HTN - BP 115/54 - continue amlodipine 5mg - continue cozaar 50mg Peripheral Neuropathy - continue gabapentin 100mg PO daily Ppx - pepcid 40mg PO daily - heparin Pt seen, examined, assessment and plan discussed with Dr Tracy. <Aminata Tracy - Last Filed: 01/17/18 18:09> Objective - Vital Signs/Intake and Output Vital Signs (last 24 hours): Temp Pulse Resp BP Pulse Ox 98.2 F 95 H 20 116/88 100 01/17/18 08:49 01/17/18 10:30 01/17/18 08:49 01/17/18 10:30 01/17/18 08:49 Intake and Output: 01/17/18 01/17/18 06:59 18:59 Intake Total 200 Balance 200 - Medications Medications: Current Medications Allopurinol (Zyloprim) 100 mg PO DAILY [facility] Last Admin: 01/17/18 10:30 Dose: 100 mg Amlodipine Besylate (Norvasc) 5 mg PO DAILY [facility] Last Admin: 01/17/18 10:30 Dose: 5 mg Aspirin (Aspirin Chewable) 81 mg PO DAILY [facility] Last Admin: 01/17/18 10:30 Dose: 81 mg Atorvastatin Calcium (Lipitor) 40 mg PO HS [facility] Last Admin: 01/16/18 21:25 Dose: 40 mg Cholecalciferol (Vitamin D) 2,000 intlu PO DAILY [facility] Last Admin: 01/17/18 10:30 Dose: 2,000 intlu Famotidine (Pepcid) 40 mg PO DAILY [facility] Gabapentin (Neurontin) 100 mg PO HS [facility]; Protocol Last Admin: 01/16/18 21:25 Dose: 100 mg Heparin Sodium (Porcine) (Heparin) 5,000 units SC Q8 [facility]; Protocol Last Admin: 01/17/18 13:53 Dose: 5,000 units Hydroxyzine HCl (Atarax) 25 mg PO BID PRN PRN Reason: Anxiety Meropenem (Merrem Iv 1 Gm Premix) 50 mls @ 100 mls/hr IVPB Q8 [facility]; Protocol Stop: 01/24/18 14:01 Last Admin: 01/17/18 13:58 Dose: 100 mls/hr Ibuprofen (Motrin Tab) 800 mg PO Q8H PRN PRN Reason: Pain, severe (8-10) Last Admin: 01/17/18 14:58 Dose: 800 mg Insulin Human Regular (Humulin R Low) 0 units SC ACHS [facility]; Protocol Last Admin: 01/17/18 16:59 Dose: Not Given Linezolid (Zyvox) 600 mg PO BID [facility]; Protocol Last Admin: 01/17/18 17:56 Dose: 600 mg Losartan Potassium (Cozaar) 50 mg PO DAILY [facility] Last Admin: 01/17/18 10:30 Dose: 50 mg Tramadol HCl (Ultram) 50 mg PO TID PRN PRN Reason: Pain, moderate (4-7) Vitamin A (Vitamin A & D Oint Ud Foilpak) 1 ea TOP BID [facility] Last Admin: 01/17/18 17:56 Dose: 1 ea - Labs Labs: 01/17/18 06:00 01/17/18 06:00 Attending/Attestation - Attestation I have personally seen and examined this patient.: Yes I have fully participated in the care of the patient.: Yes I have reviewed all pertinent clinical information, including history, physical exam and plan: Yes Notes (Text): 01/17/18 18:08 42 year old female with past medical history of hypertension, obesity, diabetes and chronic venous ulcers and nonhealing right griffin wound who presented with intractable pain from chronic right leg wound. Wound culture is ESBL +. Patient is on meropenem and zvyox. Will need 7-10 days as per ID. Podiatry is also following the patient. She is on tramadol prn for pain. Patient was counselled on diet and exercise with lifestyle modifications. Aminata Tracy MD Hospitalist.
[2018-01-17] MEDS: Vitamins A & D Oint UD Foilpak TOP SCH (17:56)
--- NOTE | 2018-01-17 21:36 | CP.PCM.PN ---
Subjective - Date & Time of Evaluation Date of Evaluation: 01/17/18 Time of Evaluation: 10:15 - Subjective Subjective: No fevers, not in distress, less pain in the right leg. Objective - Vital Signs/Intake and Output Vital Signs (last 24 hours): Temp Pulse Resp BP Pulse Ox 97.8 F 92 H 20 125/75 97 01/17/18 18:00 01/17/18 18:00 01/17/18 18:00 01/17/18 18:00 01/17/18 18:00 Intake and Output: 01/17/18 01/18/18 18:59 06:59 Intake Total 1590 Balance 1590 - Medications Medications: Current Medications Allopurinol (Zyloprim) 100 mg PO DAILY [facility] Last Admin: 01/17/18 10:30 Dose: 100 mg Amlodipine Besylate (Norvasc) 5 mg PO DAILY [facility] Last Admin: 01/17/18 10:30 Dose: 5 mg Aspirin (Aspirin Chewable) 81 mg PO DAILY [facility] Last Admin: 01/17/18 10:30 Dose: 81 mg Atorvastatin Calcium (Lipitor) 40 mg PO HS [facility] Last Admin: 01/16/18 21:25 Dose: 40 mg Cholecalciferol (Vitamin D) 2,000 intlu PO DAILY [facility] Last Admin: 01/17/18 10:30 Dose: 2,000 intlu Famotidine (Pepcid) 40 mg PO DAILY [facility] Gabapentin (Neurontin) 100 mg PO HS [facility]; Protocol Last Admin: 01/16/18 21:25 Dose: 100 mg Heparin Sodium (Porcine) (Heparin) 5,000 units SC Q8 [facility]; Protocol Last Admin: 01/17/18 13:53 Dose: 5,000 units Hydroxyzine HCl (Atarax) 25 mg PO BID PRN PRN Reason: Anxiety Meropenem (Merrem Iv 1 Gm Premix) 50 mls @ 100 mls/hr IVPB Q8 [facility]; Protocol Stop: 01/24/18 14:01 Last Admin: 01/17/18 13:58 Dose: 100 mls/hr Ibuprofen (Motrin Tab) 800 mg PO Q8H PRN PRN Reason: Pain, severe (8-10) Last Admin: 01/17/18 14:58 Dose: 800 mg Insulin Human Regular (Humulin R Low) 0 units SC ACHS [facility]; Protocol Last Admin: 01/17/18 16:59 Dose: Not Given Linezolid (Zyvox) 600 mg PO BID [facility]; Protocol Last Admin: 01/17/18 17:56 Dose: 600 mg Losartan Potassium (Cozaar) 50 mg PO DAILY [facility] Last Admin: 01/17/18 10:30 Dose: 50 mg Tramadol HCl (Ultram) 50 mg PO TID PRN PRN Reason: Pain, moderate (4-7) Vitamin A (Vitamin A & D Oint Ud Foilpak) 1 ea TOP BID [facility] Last Admin: 01/17/18 17:56 Dose: 1 ea - Labs Labs: 01/17/18 06:00 01/17/18 06:00 - Constitutional Appears: Chronically Ill - Head Exam Head Exam: NORMAL INSPECTION - ENT Exam ENT Exam: Mucous Membranes Moist - Respiratory Exam Respiratory Exam: Decreased Breath Sounds - Cardiovascular Exam Cardiovascular Exam: +S1, +S2 - GI/Abdominal Exam GI & Abdominal Exam: Soft. absent: Tenderness - Extremities Exam Additional comments: right leg with dressings in place Assessment and Plan - Assessment and Plan (Free Text) Plan: Assessment Right leg skin and skin structure infection associated with chronic leg ulcers, with chronic venous stasis and lymphedema, growing Staph aureus, E. coli, Proteus HTN morbid obesity with BMI 76 dyslipidemia DM chronic leg ulcers especially on the right leg fibroid uterus peripheral neuropathy Plan reviewed CT leg - no osteomyelitis noted - continue Zyvox and Merrem (Day 5) to complete 7-10 days of antibiotics follow up further recommendations of Podiatry
[2018-01-18] MEDS: Meropenem IV 1 gm in NS 50 ML IVPB SCH ×3 (05:29→22:21)
[2018-01-18 07:11] LABS: BASO # 0.01 K/mm3 (0.0-2.0); BASO % 0.1 % (0.0-3.0); EOS # 0.3 (0.0-0.7); EOS % 3.2 % (1.5-5.0); GRAN # 5.03 (1.4-6.5); GRAN % 64.6 % (50.0-68.0); HEMOGLOBIN 12.4 g/dL (12.0-16.0); LYMPH # 1.9 (1.2-3.4); LYMPH % 24.8 % (22.0-35.0); MEAN CELL VOLUME 84.4 fl (80.0-105.0); MEAN CORPUSCULAR HEMOGLOBIN 25.8 pg (25.0-35.0); MEAN CORPUSCULAR HGB CONC 30.6 g/dl (31.0-37.0); MEAN PLATELET VOLUME 9.6 fl (7.0-11.0); MONO # 0.6 (0.1-0.6); MONO % 7.3 % (1.0-6.0); RBC 4.8 10^6/uL (3.5-6.1); RED CELL DISTRIBUTION WIDTH 17.1 % (11.5-14.5); WHITE BLOOD COUNT 7.8 10^3/ul (4.5-11.0)
[2018-01-18 07:25] LABS: ALBUMIN 4.2 g/dL (3.0-4.8); ALT/SGPT 20 U/L (7-56); AST/SGOT 22 U/L (14-36); BLOOD UREA NITROGEN 14 mg/dL (7-21); CALCIUM 10.1 mg/dL (8.4-10.5); GFR NON-AFRICAN AMERICAN > 60
--- NOTE | 2018-01-18 08:00 | CP.PCM.PN ---
<Mesfin Vergara - Last Filed: 01/18/18 12:44> Subjective - Date & Time of Evaluation Date of Evaluation: 01/18/18 Time of Evaluation: 12:44 - Subjective Subjective: Podiatry Progress Note for Dr. Salmeron 42 Y/O F patient seen and evaluated at bedside for lateral right leg wound. Patient is AAO x 3 and NAD, resting comfortably in bed. Patient denies any acute overnight acute events or any new pedal complaints. Patient states that she has episodes of shooting pain in her ulcer site. Patient denies any overnight N/V/F/C/CP/SOB. Objective - Vital Signs/Intake and Output Vital Signs (last 24 hours): Temp Pulse Resp BP Pulse Ox 97.8 F 92 H 20 125/75 97 01/17/18 18:00 01/17/18 18:00 01/17/18 18:00 01/17/18 18:00 01/17/18 18:00 Intake and Output: 01/18/18 01/18/18 06:59 18:59 Intake Total 300 Balance 300 - Medications Medications: Current Medications Allopurinol (Zyloprim) 100 mg PO DAILY [facility] Last Admin: 01/17/18 10:30 Dose: 100 mg Amlodipine Besylate (Norvasc) 5 mg PO DAILY [facility] Last Admin: 01/17/18 10:30 Dose: 5 mg Aspirin (Aspirin Chewable) 81 mg PO DAILY [facility] Last Admin: 01/17/18 10:30 Dose: 81 mg Atorvastatin Calcium (Lipitor) 40 mg PO HS [facility] Last Admin: 01/17/18 22:09 Dose: 40 mg Cholecalciferol (Vitamin D) 2,000 intlu PO DAILY [facility] Last Admin: 01/17/18 10:30 Dose: 2,000 intlu Famotidine (Pepcid) 40 mg PO DAILY [facility] Gabapentin (Neurontin) 100 mg PO HS [facility]; Protocol Last Admin: 01/17/18 22:09 Dose: 100 mg Heparin Sodium (Porcine) (Heparin) 5,000 units SC Q8 [facility]; Protocol Last Admin: 01/18/18 05:29 Dose: 5,000 units Hydroxyzine HCl (Atarax) 25 mg PO BID PRN PRN Reason: Anxiety Meropenem (Merrem Iv 1 Gm Premix) 50 mls @ 100 mls/hr IVPB Q8 [facility]; Protocol Stop: 01/24/18 14:01 Last Admin: 01/18/18 05:29 Dose: 100 mls/hr Ibuprofen (Motrin Tab) 800 mg PO Q8H PRN PRN Reason: Pain, severe (8-10) Last Admin: 01/18/18 05:35 Dose: 800 mg Insulin Human Regular (Humulin R Low) 0 units SC ACHS [facility]; Protocol Last Admin: 01/17/18 22:08 Dose: Not Given Linezolid (Zyvox) 600 mg PO BID [facility]; Protocol Last Admin: 01/17/18 17:56 Dose: 600 mg Losartan Potassium (Cozaar) 50 mg PO DAILY [facility] Last Admin: 01/17/18 10:30 Dose: 50 mg Tramadol HCl (Ultram) 50 mg PO TID PRN PRN Reason: Pain, moderate (4-7) Last Admin: 01/18/18 00:25 Dose: 50 mg Vitamin A (Vitamin A & D Oint Ud Foilpak) 1 ea TOP BID [facility] Last Admin: 01/17/18 17:56 Dose: 1 ea - Labs Labs: 01/18/18 06:40 01/18/18 06:40 - Constitutional Appears: Well, Non-toxic, No Acute Distress - Head Exam Head Exam: ATRAUMATIC, NORMOCEPHALIC - Extremities Exam Additional comments: RLE focused exam: Vasc: DP 2/4 b/l. PT couldn't be palpated due to edema B/L. Cap refill < 3 sec in all digits. Temperature gradient warm to warm from proximal to distal. Severe non pitting edema extending up to the tibial tuberosity b/l. Neuro: Gross and protective sensation are intact b/l. Derm: An open ulcer 7.5cmX4.2cmX0.1cm in the the anterior aspect of the right leg at the mid-leg position . Minimal serous drainage noted. No malodor. No probing to bone, No undermining, tracking or tunneling. No erythema. no clinical signs of infection. Wound base is 100% granular. Bilateral skin changes (hyperpigmentation, Xerosis and lichnification) of the legs. Patient ulcer is seen to be improving at this time MSK: Mild pain on palpation of ulceration. Muscle power intact 5/5 in all groups. - Neurological Exam Neurological Exam: Alert, Awake, Oriented x3 - Psychiatric Exam Psychiatric exam: Normal Affect, Normal Mood Assessment and Plan - Assessment and Plan (Free Text) Assessment: 42 y/o F patient seen and evaluated at bedside for lateral right leg ulcer Plan: Patient seen and evaluated at the bedside with attending Dr. Dr. Salmeron. Plan discussed with Dr. Salmeron Charts, labs and vitals reviewed; Afebrile, WBCs 7.8 Wound cx R leg reviewed; Proteus Mirabilis, E coli Continue abx per ID Tib/fib radiographs: unremarkable Arterial waveforms normal to RLE LE CT reviewed: Cellulitis of anterior distal lower extremity. No evidence of abscess. No evidence of osteomyelitis. Possible cellulitis of the medial distal thigh bilaterally. Wound cleaned with sterile saline and then dressed with optifoam and compression stocking No plan for surgical intervention at this time Patient will be discharged from the hospital tomorrow by her primary team Podiatry will continue to follow while patient in house Patient will follow up in the wound care center upon her discharge <Ayde Salmeron - Last Filed: 01/18/18 13:18> Objective - Vital Signs/Intake and Output Vital Signs (last 24 hours): Temp Pulse Resp BP Pulse Ox 98.4 F 100 H 20 147/87 97 01/18/18 06:00 01/18/18 09:18 01/18/18 06:00 01/18/18 09:18 01/18/18 06:00 Intake and Output: 01/18/18 01/18/18 06:59 18:59 Intake Total 300 Balance 300 - Medications Medications: Current Medications Allopurinol (Zyloprim) 100 mg PO DAILY [facility] Last Admin: 01/18/18 09:18 Dose: 100 mg Amlodipine Besylate (Norvasc) 5 mg PO DAILY [facility] Last Admin: 01/18/18 09:18 Dose: 5 mg Aspirin (Aspirin Chewable) 81 mg PO DAILY [facility] Last Admin: 01/18/18 09:16 Dose: 81 mg Atorvastatin Calcium (Lipitor) 40 mg PO HS [facility] Last Admin: 01/17/18 22:09 Dose: 40 mg Cholecalciferol (Vitamin D) 2,000 intlu PO DAILY [facility] Last Admin: 01/18/18 09:18 Dose: 2,000 intlu Famotidine (Pepcid) 40 mg PO DAILY [facility] Last Admin: 01/18/18 09:18 Dose: 40 mg Gabapentin (Neurontin) 100 mg PO HS [facility]; Protocol Last Admin: 01/17/18 22:09 Dose: 100 mg Heparin Sodium (Porcine) (Heparin) 5,000 units SC Q8 [facility]; Protocol Last Admin: 01/18/18 05:29 Dose: 5,000 units Hydroxyzine HCl (Atarax) 25 mg PO BID PRN PRN Reason: Anxiety Meropenem (Merrem Iv 1 Gm Premix) 50 mls @ 100 mls/hr IVPB Q8 [facility]; Protocol Stop: 01/24/18 14:01 Last Admin: 01/18/18 05:29 Dose: 100 mls/hr Ibuprofen (Motrin Tab) 800 mg PO Q8H PRN PRN Reason: Pain, severe (8-10) Last Admin: 01/18/18 05:35 Dose: 800 mg Insulin Human Regular (Humulin R Low) 0 units SC ACHS [facility]; Protocol Last Admin: 01/18/18 12:11 Dose: Not Given Linezolid (Zyvox) 600 mg PO BID [facility]; Protocol Last Admin: 01/18/18 09:19 Dose: 600 mg Losartan Potassium (Cozaar) 50 mg PO DAILY [facility] Last Admin: 01/18/18 09:16 Dose: 50 mg Tramadol HCl (Ultram) 25 mg PO TID PRN PRN Reason: Pain, moderate (4-7) Vitamin A (Vitamin A & D Oint Ud Foilpak) 1 ea TOP BID [facility] Last Admin: 01/18/18 09:18 Dose: 1 ea - Labs Labs: 01/18/18 06:40 01/18/18 06:40 Attending/Attestation - Attestation I have personally seen and examined this patient.: Yes I have fully participated in the care of the patient.: Yes I have reviewed all pertinent clinical information, including history, physical exam and plan: Yes
[2018-01-18] MEDS: Cholecalciferol 1,000 INTLU TAB PO SCH (09:18)
[2018-01-18] MEDS: Vitamins A & D Oint UD Foilpak TOP SCH ×2 (09:18→17:21)
[2018-01-18] MEDS: Insulin Reg-LOW-Coverage SC SCH ×4 (10:08→22:21)
--- NOTE | 2018-01-18 14:34 | CP.PCM.PN ---
<Yi Valentin - Last Filed: 01/18/18 17:17> Subjective - Date & Time of Evaluation Date of Evaluation: 01/18/18 Time of Evaluation: 14:31 - Subjective Subjective: Yi Valentin PGY1 Progress note for Dr. Tracy Pt was examined at bedside this morning. She reports some throbbing pain overnight in the right lower leg that has subsided with pain medication. She was sleepy, dozing off throughout conversation. She denied any chills, dizziness, chest pain, shortness of breath, abdominal pain, nausea, vomiting, diarrhea. Objective - Vital Signs/Intake and Output Vital Signs (last 24 hours): Temp Pulse Resp BP Pulse Ox 98.4 F 100 H 20 147/87 97 01/18/18 06:00 01/18/18 09:18 01/18/18 06:00 01/18/18 09:18 01/18/18 06:00 Intake and Output: 01/18/18 01/18/18 06:59 18:59 Intake Total 300 Balance 300 - Medications Medications: Current Medications Allopurinol (Zyloprim) 100 mg PO DAILY [facility] Last Admin: 01/18/18 09:18 Dose: 100 mg Amlodipine Besylate (Norvasc) 5 mg PO DAILY [facility] Last Admin: 01/18/18 09:18 Dose: 5 mg Aspirin (Aspirin Chewable) 81 mg PO DAILY [facility] Last Admin: 01/18/18 09:16 Dose: 81 mg Atorvastatin Calcium (Lipitor) 40 mg PO HS [facility] Last Admin: 01/17/18 22:09 Dose: 40 mg Cholecalciferol (Vitamin D) 2,000 intlu PO DAILY [facility] Last Admin: 01/18/18 09:18 Dose: 2,000 intlu Famotidine (Pepcid) 40 mg PO DAILY [facility] Last Admin: 01/18/18 09:18 Dose: 40 mg Gabapentin (Neurontin) 100 mg PO HS [facility]; Protocol Last Admin: 01/17/18 22:09 Dose: 100 mg Heparin Sodium (Porcine) (Heparin) 5,000 units SC Q8 [facility]; Protocol Last Admin: 01/18/18 13:16 Dose: 5,000 units Hydroxyzine HCl (Atarax) 25 mg PO BID PRN PRN Reason: Anxiety Meropenem (Merrem Iv 1 Gm Premix) 50 mls @ 100 mls/hr IVPB Q8 [facility]; Protocol Stop: 01/24/18 14:01 Last Admin: 01/18/18 13:16 Dose: 100 mls/hr Ibuprofen (Motrin Tab) 800 mg PO Q8H PRN PRN Reason: Pain, severe (8-10) Last Admin: 01/18/18 13:17 Dose: 800 mg Insulin Human Regular (Humulin R Low) 0 units SC ACHS [facility]; Protocol Last Admin: 01/18/18 12:11 Dose: Not Given Linezolid (Zyvox) 600 mg PO BID [facility]; Protocol Last Admin: 01/18/18 09:19 Dose: 600 mg Losartan Potassium (Cozaar) 50 mg PO DAILY [facility] Last Admin: 01/18/18 09:16 Dose: 50 mg Tramadol HCl (Ultram) 25 mg PO TID PRN PRN Reason: Pain, moderate (4-7) Vitamin A (Vitamin A & D Oint Ud Foilpak) 1 ea TOP BID [facility] Last Admin: 01/18/18 09:18 Dose: 1 ea - Labs Labs: 01/18/18 06:40 01/18/18 06:40 - Constitutional Appears: Well, No Acute Distress - Head Exam Head Exam: ATRAUMATIC, NORMOCEPHALIC - Respiratory Exam Respiratory Exam: Clear to Ausculation Bilateral, NORMAL BREATHING PATTERN - Cardiovascular Exam Cardiovascular Exam: REGULAR RHYTHM, +S1, +S2 - GI/Abdominal Exam GI & Abdominal Exam: Soft, Normal Bowel Sounds. absent: Tenderness Additional comments: large habitus - Extremities Exam Extremities Exam: Pedal Edema Additional comments: RUE: PICC line clean dry intact RLE: 4x4cm ulceration, minimal erythema, scant clear drainage - Neurological Exam Additional comments: somnolent - Psychiatric Exam Psychiatric exam: Normal Affect, Normal Mood Assessment and Plan - Assessment and Plan (Free Text) Assessment: 42 yo F with PMH of morbid obesity, HTN, HLD, DM, chronic venous ulcers, non healing right griffin wound, fibroid uterus and peripheral neuropathy admitted for intractable pain in right lower leg wound. Plan: Chronic non healing ulcer with intractable pain - Wound Cx: ESBL+ Staph aureus, E.coli, proteus - Duplex LE US: limited study due to body habitus. calf, ankle, and metatarsal waveforms normal symmetric b/l - CT LE: cellulitis of anterior distal LE. No evidence of abscess, osteom yelitits. - continue Zyvox 600mg PO BID (day 6), Meropenem 1 gram IVPB Q8 (day 4) to complete 7-10 days as per ID - continue allopurinol 100mg PO daily - decrease tramadol 25mg PO TID PRN for pain, as pt was sleepy upon examination - PICC line placed - Podiatry consulted, Dr. Salmeron: no plan for surgical intervention at this time, continue wound dressing, recommends out-pt wound care - ID consulted, Dr. Dinh, recs appreciated Morbid Obesity - BMI 76.2 - consistent carb diet - fall precautions - activity as tolerated HLD - continue lipitor 40mg DM - continue SSI, finger sticks 01/17-01/18 110, 144, 202, 111, 103 - HbA1C 6.7 HTN - BP 121/83 - continue amlodipine 5mg - continue cozaar 50mg Ppx - pepcid 40mg PO daily - heparin Dispo: - PT: home w/services - to send pt to [facility] out [facility] and pt agrees, as per note Pt seen, examined, assessment and plan discussed with Dr Tracy. <Aminata Tracy - Last Filed: 01/18/18 18:01> Objective - Vital Signs/Intake and Output Vital Signs (last 24 hours): Temp Pulse Resp BP Pulse Ox 98.7 F 89 20 115/71 99 01/18/18 16:39 01/18/18 16:39 01/18/18 16:39 01/18/18 16:39 01/18/18 16:39 Intake and Output: 01/18/18 01/18/18 06:59 18:59 Intake Total 300 Balance 300 - Medications Medications: Current Medications Allopurinol (Zyloprim) 100 mg PO DAILY [facility] Last Admin: 01/18/18 09:18 Dose: 100 mg Amlodipine Besylate (Norvasc) 5 mg PO DAILY [facility] Last Admin: 01/18/18 09:18 Dose: 5 mg Aspirin (Aspirin Chewable) 81 mg PO DAILY [facility] Last Admin: 01/18/18 09:16 Dose: 81 mg Atorvastatin Calcium (Lipitor) 40 mg PO HS [facility] Last Admin: 01/17/18 22:09 Dose: 40 mg Cholecalciferol (Vitamin D) 2,000 intlu PO DAILY [facility] Last Admin: 01/18/18 09:18 Dose: 2,000 intlu Famotidine (Pepcid) 40 mg PO DAILY [facility] Last Admin: 01/18/18 09:18 Dose: 40 mg Gabapentin (Neurontin) 100 mg PO HS [facility]; Protocol Last Admin: 01/17/18 22:09 Dose: 100 mg Heparin Sodium (Porcine) (Heparin) 5,000 units SC Q8 [facility]; Protocol Last Admin: 01/18/18 13:16 Dose: 5,000 units Hydroxyzine HCl (Atarax) 25 mg PO BID PRN PRN Reason: Anxiety Meropenem (Merrem Iv 1 Gm Premix) 50 mls @ 100 mls/hr IVPB Q8 [facility]; Protocol Stop: 01/24/18 14:01 Last Admin: 01/18/18 13:16 Dose: 100 mls/hr Ibuprofen (Motrin Tab) 800 mg PO Q8H PRN PRN Reason: Pain, severe (8-10) Last Admin: 01/18/18 13:17 Dose: 800 mg Insulin Human Regular (Humulin R Low) 0 units SC ACHS [facility]; Protocol Last Admin: 01/18/18 17:20 Dose: Not Given Linezolid (Zyvox) 600 mg PO BID [facility]; Protocol Last Admin: 01/18/18 17:21 Dose: 600 mg Losartan Potassium (Cozaar) 50 mg PO DAILY [facility] Last Admin: 01/18/18 09:16 Dose: 50 mg Tramadol HCl (Ultram) 25 mg PO TID PRN PRN Reason: Pain, moderate (4-7) Vitamin A (Vitamin A & D Oint Ud Foilpak) 1 ea TOP BID [facility] Last Admin: 01/18/18 17:21 Dose: 1 ea - Labs Labs: 01/18/18 06:40 01/18/18 06:40 Attending/Attestation - Attestation I have personally seen and examined this patient.: Yes I have fully participated in the care of the patient.: Yes I have reviewed all pertinent clinical information, including history, physical exam and plan: Yes Notes (Text): 01/18/18 18:00 42 year old female with past medical history of hypertension, obesity, diabetes and chronic venous ulcers and nonhealing right griffin wound who presented with intractable pain from chronic right leg wound. Wound culture is ESBL +. Patient is on meropenem and zvyox. Will need 7-10 days as per ID. Today is day 6. Podiatry is also following the patient. She is on tramadol prn for pain. Dose was decreased today. Patient was counselled on diet and exercise with lifestyle modifications. Aminata Tracy MD Hospitalist.
--- NOTE | 2018-01-18 17:53 | PN ---
DATE: 01/18/2018 SUBJECTIVE: The patient seen in bed, in no acute distress, nontoxic. No fevers and chills. PHYSICAL EXAMINATION: VITAL SIGNS: Temperature is 98, blood pressure is 140/70, respiratory rate of 18. HEENT: Unremarkable. NECK: Supple. LUNGS: Have decreased breath sounds. HEART: Normal S1, S2. ABDOMEN: Soft and nontender. DATA: Laboratory examination reveals a white count of 7.8, hemoglobin noted. BUN 14 and creatinine of 0.6. ASSESSMENT AND PLAN: This is a 42-year-old female with super morbid obesity with body mass index of 76 with right leg skin and skin structure infection associated chronic leg ulcers, chronic venostasis, and lymphedema, growing Staphylococcus aureus, Escherichia coli, Proteus in a patient with hypertension, super morbid obesity, dyslipidemia, diabetes, chronic leg ulcers. Currently, on Zyvox and meropenem, day #6, would complete [address] has no evidence of osteo. We will follow with you. Davion Kaiser MD
[2018-01-19] MEDS: Meropenem IV 1 gm in NS 50 ML IVPB SCH ×2 (05:52→14:07)
[2018-01-19 07:13] LABS: BASO # 0.02 K/mm3 (0.0-2.0); BASO % 0.3 % (0.0-3.0); EOS # 0.3 (0.0-0.7); EOS % 4.2 % (1.5-5.0); GRAN # 4.29 (1.4-6.5); GRAN % 58.6 % (50.0-68.0); HEMOGLOBIN 11.3 g/dL (12.0-16.0); LYMPH % 27.9 % (22.0-35.0); MEAN CELL VOLUME 84.7 fl (80.0-105.0); MEAN CORPUSCULAR HEMOGLOBIN 25.4 pg (25.0-35.0); MEAN PLATELET VOLUME 10.1 fl (7.0-11.0); MONO # 0.7 (0.1-0.6); RBC 4.45 10^6/uL (3.5-6.1); RED CELL DISTRIBUTION WIDTH 17.3 % (11.5-14.5); WHITE BLOOD COUNT 7.3 10^3/ul (4.5-11.0)
[2018-01-19 07:29] LABS: ALB/GLOB RATIO 1.1 (1.1-1.8); ALBUMIN 3.9 g/dL (3.0-4.8); ALT/SGPT 25 U/L (7-56); AST/SGOT 24 U/L (14-36); BLOOD UREA NITROGEN 14 mg/dL (7-21); CALCIUM 9.7 mg/dL (8.4-10.5); GFR NON-AFRICAN AMERICAN > 60
[2018-01-19] MEDS: Insulin Reg-LOW-Coverage SC SCH ×3 (07:33→16:45)
[2018-01-19 09:44] VITALS: TEMP 98; O2SAT 95
[2018-01-19] MEDS: Cholecalciferol 1,000 INTLU TAB PO SCH (10:07)
[2018-01-19] MEDS: Vitamins A & D Oint UD Foilpak TOP SCH ×2 (10:09→17:26)
--- NOTE | 2018-01-19 11:40 | CP.PCM.PN ---
Subjective - Date & Time of Evaluation Date of Evaluation: 01/19/18 Time of Evaluation: 11:37 - Subjective Subjective: Podiatry Progress Note for Dr. Salmeron 42 Y/O F patient seen and evaluated at bedside for lateral right leg wound. Patient is AAO x 3 and NAD, resting comfortably in bed. Patient denies any acute overnight acute events or any new pedal complaints. Patient states that she still has episodes of shooting pain in her ulcer site. Patient denies any overnight N/V/F/C or SOB. Objective - Vital Signs/Intake and Output Vital Signs (last 24 hours): Temp Pulse Resp BP Pulse Ox 98.0 F 90 20 150/70 95 01/19/18 06:00 01/19/18 10:08 01/19/18 06:00 01/19/18 10:08 01/19/18 06:00 Intake and Output: 01/19/18 01/19/18 06:59 18:59 Intake Total 580 Balance 580 - Medications Medications: Current Medications Allopurinol (Zyloprim) 100 mg PO DAILY [facility] Last Admin: 01/19/18 10:08 Dose: 100 mg Amlodipine Besylate (Norvasc) 5 mg PO DAILY [facility] Last Admin: 01/19/18 10:08 Dose: 5 mg Aspirin (Aspirin Chewable) 81 mg PO DAILY [facility] Last Admin: 01/19/18 10:08 Dose: 81 mg Atorvastatin Calcium (Lipitor) 40 mg PO HS [facility] Last Admin: 01/18/18 22:20 Dose: 40 mg Cholecalciferol (Vitamin D) 2,000 intlu PO DAILY [facility] Last Admin: 01/19/18 10:07 Dose: 2,000 intlu Famotidine (Pepcid) 40 mg PO DAILY [facility] Last Admin: 01/19/18 10:08 Dose: 40 mg Gabapentin (Neurontin) 100 mg PO HS [facility]; Protocol Last Admin: 01/18/18 22:20 Dose: 100 mg Heparin Sodium (Porcine) (Heparin) 5,000 units SC Q8 [facility]; Protocol Last Admin: 01/19/18 05:51 Dose: 5,000 units Hydroxyzine HCl (Atarax) 25 mg PO BID PRN PRN Reason: Anxiety Meropenem (Merrem Iv 1 Gm Premix) 50 mls @ 100 mls/hr IVPB Q8 [facility]; Protocol Stop: 01/24/18 14:01 Last Admin: 01/19/18 05:52 Dose: 100 mls/hr Ibuprofen (Motrin Tab) 800 mg PO Q8H PRN PRN Reason: Pain, severe (8-10) Last Admin: 01/19/18 10:08 Dose: 800 mg Insulin Human Regular (Humulin R Low) 0 units SC ACHS [facility]; Protocol Last Admin: 01/19/18 07:33 Dose: Not Given Losartan Potassium (Cozaar) 50 mg PO DAILY [facility] Last Admin: 01/19/18 10:08 Dose: 50 mg Tramadol HCl (Ultram) 25 mg PO TID PRN PRN Reason: Pain, moderate (4-7) Last Admin: 01/18/18 18:43 Dose: 25 mg Vitamin A (Vitamin A & D Oint Ud Foilpak) 1 ea TOP BID [facility] Last Admin: 01/19/18 10:09 Dose: 1 ea - Labs Labs: 01/19/18 06:30 01/19/18 06:30 - Constitutional Appears: Well, Non-toxic, No Acute Distress - Head Exam Head Exam: ATRAUMATIC, NORMOCEPHALIC - Extremities Exam Additional comments: Right LE focused exam: Vasc: DP 2/4 b/l. PT couldn't be palpated due to edema. Cap refill < 3 sec in all digits. Temperature gradient warm to cool from proximal to distal. Severe non pitting edema extending up to the tibial tuberosity b/l. Neuro: Gross and protective sensation are intact b/l. Derm: An open ulcer 6.8cmX3.8cmX0.1cm in the the anterior aspect of the right leg at the mid-leg position . Minimal serous drainage noted. No malodor. No probing to bone, No undermining, tracking or tunneling. No erythema. no clinical signs of infection. Wound base is 100% granular. Bilateral skin changes (hyperpigmentation, Xerosis and lichnification) of the legs. Patient ulcer is seen to be improving at this time MSK: Mild pain on palpation of ulceration. Muscle power intact 5/5 in all groups. - Neurological Exam Neurological Exam: Alert, Awake, Oriented x3 - Psychiatric Exam Psychiatric exam: Normal Affect, Normal Mood Assessment and Plan - Assessment and Plan (Free Text) Assessment: 42 y/o F patient seen and evaluated at bedside for lateral right leg ulcer Plan: Patient seen and evaluated at the bedside with attending Dr. Dr. Salmeron. Plan discussed with Dr. Salmeron Charts, labs and vitals reviewed; Afebrile, WBCs 7.3 Wound cx R leg reviewed; Proteus Mirabilis, E coli Continue abx per ID Tib/fib radiographs: unremarkable Arterial waveforms normal to RLE LE CT reviewed: Cellulitis of anterior distal lower extremity. No evidence of abscess. No evidence of osteomyelitis. Possible cellulitis of the medial distal thigh bilaterally. Wound cleaned with sterile saline and then dressed with optifoam. No plan for surgical intervention at this time Patient will be discharged from the hospital today by her primary team Podiatry will continue to follow while patient in house Patient will follow up in the wound care center upon her discharge
[2018-01-19 17:33] VITALS: BP 131/86; PULSE 95; RESP 19
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
--- NOTE | 2018-01-19 22:06 | PN ---
DATE: 01/19/2018 SUBJECTIVE: The patient is in bed, in no acute distress, nontoxic. PHYSICAL EXAMINATION: VITAL SIGNS: Temperature is 98, blood pressure is 130/80, respiratory rate of 20, heart rate of 95. HEENT: Examination of HEENT is unremarkable. NECK: Supple. LUNGS: Have decreased breath sounds. HEART: Normal S1 and S2. ABDOMEN: Soft, nontender. EXTREMITIES: Examination of the foot is much improved. LABORATORY DATA: Laboratory examination reveals a white count of 7.3, hemoglobin of 11, BUN of 14, creatinine of 0.6. ASSESSMENT AND PLAN: A 42-year-old female with morbid obesity with body mass index of 76. Right leg skin and skin structure infection associated with a chronic leg ulcer, chronic venous stasis and lymphedema, growing a Staphylococcus aureus, Escherichia coli, Proteus in patient with hypertension, super morbid obesity with a body mass index of 76. Today is #7 of antibiotic therapy. Davion Kaiser MD
== END 2018-01-19 18:51 | disposition home or self-care (01) | DRG 638 ==
LOC: ED 12:59 → ERH 19:52 → 3RNO 22:12 → OBSVTOIN 01-13 16:50
PROVIDERS: ADMIT Internal Medicine; ATTEND Internal Medicine
DX: E11.622 Type 2 diabetes mellitus with other skin ulcer (principal); L97.819 Non-pressure chronic ulcer of other part of right lower leg with unspecified severity; Z68.45 Body mass index [BMI] 70 or greater, adult; L03.115 Cellulitis of right lower limb; B96.20 Unspecified Escherichia coli [E. coli] as the cause of diseases classified elsewhere; B96.4 Proteus (mirabilis) (morganii) as the cause of diseases classified elsewhere; I87.2 Venous insufficiency (chronic) (peripheral); E11.42 Type 2 diabetes mellitus with diabetic polyneuropathy; I10 Essential (primary) hypertension; E78.5 Hyperlipidemia, unspecified; E66.01 Morbid (severe) obesity due to excess calories; D25.9 Leiomyoma of uterus, unspecified; K21.9 Gastro-esophageal reflux disease without esophagitis

== ENCOUNTER 2018-03-09 12:44 | Emergency (ER) | payer MEDICARE, MEDICAID ==
[2018-03-09 12:45] VITALS: BMI 76.1
[2018-03-09 13:10] VITALS: TEMP 97.8
[2018-03-09] MEDS ORDERED: Oxycodone/Acetaminophen 5/325 mg Tab PO STA (13:12)
--- NOTE | 2018-03-09 13:46 | ED PDOC ---
Arrival/HPI - General Chief Complaint: Lower Extremity Problem/Injury Historian: Patient - History of Present Illness Narrative History of Present Illness (Text): 03/09/18 13:32 42yo morbidly obese female with pmhx of lymphedema and chronic wound who was referred to ED by Dr. Salmeron for right leg pain. Patient states she started having sharp pain while she was seeing Dr. Salmeron for her routine wound care and she referred her to ED. Denies fever chills, any other complaint. Past Medical History - Provider Review Nursing Documentation Reviewed: Yes - Past History Past History: No Previous - Cardiac Hx Hypertension: Yes - Pulmonary Hx Tuberculosis: No - Neurological HX Cerebrovascular Accident: No - HEENT Hx HEENT Disorder: No - Renal Hx Renal Disorder: No - Endocrine/Metabolic Hx Diabetes Mellitus Type 2: Yes - Hematological/Oncological Hx Anemia: Yes - Integumentary Hx Dermatological Disorder: No - Musculoskeletal/Rheumatological Hx Musculoskeletal Disorders: No Hx Falls: No - Gastrointestinal Hx Gastrointestinal Disorders: Yes Hx Gastroesophageal Reflux: Yes Other/Comment: fibroid cyst - Genitourinary/Gynecological Hx Sexually Transmitted Diseases: No - Psychiatric Hx Psychophysiologic Disorder: No Hx Substance Use: No - Surgical History Hx Arthroscopy: Yes (left knee) Hx Orthopedic Surgery: Yes Other/Comment: bilateral knee surgery, bilateral upper eyelid surgery - Anesthesia Hx Anesthesia: Yes Hx Anesthesia Reactions: No Hx Malignant Hyperthermia: No Family/Social History - Physician Review Nursing Documentation Reviewed: Yes Family/Social History: Unknown Family HX Smoking Status: Never Smoked Hx Alcohol Use: No Hx Substance Use: No Allergies/Home Meds Allergies/Adverse Reactions: Allergies No Known Allergies Allergy (Verified 01/10/18 12:16) Review of Systems - Physician Review All systems were reviewed & negative as marked: Yes - Review of Systems Constitutional: Normal Eyes: Normal ENT: Normal Respiratory: Normal Cardiovascular: Normal Gastrointestinal: Normal Genitourinary Female: Normal Musculoskeletal: Arthralgias (LEg pain) Skin: Normal Neurological: Normal Endocrine: Normal Hemo/Lymphatic: Normal Psychiatric: Normal Physical Exam Vital Signs Reviewed: Yes Vital Signs Temp Pulse Resp BP Pulse Ox 03/09/18 13:06 97.8 F 90 18 143/74 96 Temperature: Afebrile Blood Pressure: Normal Pulse: Regular Respiratory Rate: Normal Appearance: Positive for: Well-Appearing, Non-Toxic, Comfortable Pain Distress: None Mental Status: Positive for: Alert and Oriented X 3 - Systems Exam Head: Present: Atraumatic, Normocephalic Pupils: Present: PERRL Extroacular Muscles: Present: EOMI Conjunctiva: Present: Normal Mouth: Present: Moist Mucous Membranes Neck: Present: Normal Range of Motion Respiratory/Chest: Present: Clear to Auscultation, Good Air Exchange. No: Respiratory Distress, Accessory Muscle Use Cardiovascular: Present: Regular Rate and Rhythm, Normal S1, S2. No: Murmurs Abdomen: No: Tenderness, Distention, Peritoneal Signs Back: Present: Normal Inspection Upper Extremity: Present: Normal Inspection. No: Cyanosis, Edema Lower Extremity: Present: Normal Inspection, Other (Clean dressing noted in place to right leg). No: Edema Neurological: Present: GCS=15, CN II-XII Intact, Speech Normal Skin: Present: Warm, Dry, Normal Color. No: Rashes Psychiatric: Present: Alert, Oriented x 3, Normal Insight, Normal Concentration Medical Decision Making ED Course and Treatment: 03/09/18 14:25 PT referred to ED for right leg pain. Pt saw Dr. Salmeron today for her routine wound care and started having worsening pain while in the clinic. Case was DW Dr. Salmeron who states that pt only had mild erythema to her leg and she gave her Keflex prescription. states patient takes too much of Ibuprofen and she didn't want to give her more. Notes that she gave her Tylenol rx. States she sent pt to ED for pain control and discharge. Pt was given Percocet in ED On re evaluation she noted improvement of her pain and was DC home - Medication Orders Current Medication Orders: Discontinued Medications Oxycodone/Acetaminophen (Percocet 5/325 Mg Tab) 1 tab PO STAT STA Stop: 03/09/18 13:13 Last Admin: 03/09/18 13:21 Dose: 1 tab [facility] Pain Assessment Document 03/09/18 13:21 KV (Rec: 03/09/18 13:24 KV [facility] [id number]) Pain Reassessment Is this a pain reassessment? Yes Sleep Is patient sleeping during reassessment? No Presence of Pain Presence of Pain Yes Pain Scale Used Protocol: PSCALES Pain Scale Used Numeric Location Left, Right or Bilateral Right Pain Location Body Site Foot Description Description Constant Intensity of Pain at present 10 Disposition/Present on Arrival - Present on Arrival Any Indicators Present on Arrival: No History of DVT/PE: No History of Uncontrolled Diabetes: Yes Urinary Catheter: No History of Decub. Ulcer: Yes (RLE) History Surgical Site Infection Following: None - Disposition Have Diagnosis and Disposition been Completed?: Yes Diagnosis: Right leg pain Disposition: HOME/ ROUTINE Disposition Time: 13:45 Patient Plan: Discharge Patient Problems: Current Active Problems Problem Status Onset Right leg pain Acute Condition: STABLE Discharge Instructions (ExitCare): Muscle and Bone Pain (DC) Additional Instructions: Follow up with your Doctor/Instant Print Operator Take your medications as was prescribed Return to ED for new or worsening symptoms Referrals: Juanito Grady MD [Primary Care Provider] - Follow up with primary Forms: [employer] ([place])
[2018-03-10 00:38] VITALS: RESP 16
[2018-03-10 01:51] VITALS: BP 114/62; PULSE 61; O2SAT 99
== END 2018-03-10 01:49 | disposition home or self-care (01) ==
LOC: ED 12:44
DX: M79.604 Pain in right leg (principal); E11.9 Type 2 diabetes mellitus without complications; I10 Essential (primary) hypertension; E66.01 Morbid (severe) obesity due to excess calories

== ENCOUNTER 2018-06-29 15:53 | Inpatient (IN) | payer MEDICARE, MEDICAID ==
[2018-06-29 16:12] VITALS: BMI 79.9
[2018-06-29] MEDS ORDERED: Ceftaroline 600 MG in Sodium Chloride 0.9% 100 ML IVPB STA (16:26)
--- NOTE | 2018-06-29 16:47 | ED PDOC ---
Arrival/HPI - General Chief Complaint: Abnormal Skin Integrity Time Seen by Provider: 06/29/18 15:56 Historian: Patient - History of Present Illness Narrative History of Present Illness (Text): 06/29/18 16:34 42 y/o female with PMH of diabetes, morbid obesity, chronic right griffin wound sent to ED by Dr. Salmeron, podiatry for admission for IV antibiotics secondary to worsening right anterior griffin ulceration. Pt states she has had the wound on her right griffin for 5-6 months, and sees Dr. Salmeron 1-2 times a week for wound care. Last saw Dr. Salmeron this morning, who took a wound culture and sent pt to ED for IV antibiotics. Associated chills, nausea, fatigue. Denies fevers, chest pain, SOB, abdominal pain, vomiting, diarrhea, back pain, headache, dizziness, or any other associated symptoms. Past Medical History - Past History Past History: No Previous - Cardiac Hx Cardiac Disorders: Yes Hx Hypertension: Yes - Pulmonary Hx Respiratory Disorders: No - Neurological Hx Neurological Disorder: No - HEENT Hx HEENT Disorder: No - Renal Hx Renal Disorder: No - Endocrine/Metabolic Hx Endocrine Disorders: Yes Hx Diabetes Mellitus Type 2: Yes - Hematological/Oncological Hx Blood Disorders: Yes Hx Anemia: Yes Hx Blood Transfusions: No - Integumentary Hx Dermatological Disorder: No - Musculoskeletal/Rheumatological Hx Musculoskeletal Disorders: No - Gastrointestinal Hx Gastrointestinal Disorders: Yes Hx Gastroesophageal Reflux: Yes Other/Comment: fibroid cyst - Genitourinary/Gynecological Hx Genitourinary Disorders: No - Psychiatric Hx Psychophysiologic Disorder: No Hx Substance Use: No - Surgical History Hx Arthroscopy: Yes (left knee) Hx Orthopedic Surgery: Yes Other/Comment: bilateral knee surgery, bilateral upper eyelid surgery - Anesthesia Hx Anesthesia: Yes Hx Anesthesia Reactions: No Hx Malignant Hyperthermia: No Family/Social History - Physician Review Nursing Documentation Reviewed: Yes Family/Social History: No Known Family HX Smoking Status: Never Smoked Hx Alcohol Use: Yes Frequency of alcohol use: Socially Hx Substance Use: No Allergies/Home Meds Allergies/Adverse Reactions: Allergies No Known Allergies Allergy (Verified 06/29/18 16:13) Review of Systems - Review of Systems Constitutional: Fatigue. absent: Fevers Eyes: Normal. absent: Vision Changes ENT: Normal. absent: Sore Throat, Sinus Congestion Respiratory: Normal. absent: SOB, Cough Cardiovascular: Normal. absent: Chest Pain, Palpitations Gastrointestinal: Nausea. absent: Abdominal Pain, Vomiting Genitourinary Female: Normal. absent: Dysuria, Frequency Musculoskeletal: Arthralgias Skin: Ulcer Neurological: Normal. absent: Headache, Dizziness Endocrine: Normal Hemo/Lymphatic: Normal Psychiatric: Normal Physical Exam Vital Signs Reviewed: Yes Vital Signs Temp Pulse Resp BP Pulse Ox 06/29/18 16:18 98.5 F 82 18 143/91 H 98 Temperature: Afebrile Blood Pressure: Hypertensive Pulse: Regular Respiratory Rate: Normal Appearance: Positive for: Well-Appearing, Non-Toxic, Comfortable Pain Distress: None Mental Status: Positive for: Alert and Oriented X 3 - Systems Exam Head: Present: Atraumatic, Normocephalic Pupils: Present: PERRL Extroacular Muscles: Present: EOMI Conjunctiva: Present: Normal Mouth: Present: Moist Mucous Membranes Neck: Present: Normal Range of Motion Respiratory/Chest: Present: Decreased Breath Sounds (bilaterally). No: Respiratory Distress, Accessory Muscle Use Cardiovascular: Present: Regular Rate and Rhythm, Normal S1, S2, Peripheal Pulses Present Abdomen: Present: Normal Bowel Sounds. No: Tenderness, Distention, Peritoneal Signs, Rebound, Guarding Back: Present: Normal Inspection. No: CVA Tenderness Upper Extremity: Present: Normal Inspection, Normal ROM, NORMAL PULSES, Neurovascularly Intact, Capillary Refill < 2s. No: Cyanosis, Edema, Temperature Abnormalties Lower Extremity: Present: Edema (bilateral pitting edema), Normal ROM, Tenderness (right anterior griffin over ulcer), Neurovascularly Intact, Capillary Refill < 2 s. No: Normal Inspection (diabetic ulcer to right anterior griffin measuring [id number] with irregular borders; no drainage), CALF TENDERNESS, NORMAL PULSES (1/2 pedal pulses bilaterally), Swelling, Temperature Abnormalties Neurological: Present: GCS=15, CN II-XII Intact, Speech Normal, Motor Func Grossly Intact, Normal Sensory Function, Gait Normal Skin: Present: Warm, Dry, Normal Color. No: Rashes Psychiatric: Present: Alert, Oriented x 3, Normal Insight, Normal Concentration, Normal Affect, Normal Mood Medical Decision Making ED Course and Treatment: Initial Plan: * CBC, CMP * Coags * UA, culture * Blood culture * Right tib/fib XR * Teflaro 600mg IV 16:[address] Salmeron, who recommends admission to hospital with XR of right tibia, IV Teflaro 600mg, and ID consult. States no wound culture necessary, as one was done in the office today. Labwork reviewed, unremarkable Xray negative for acute pathology 18:[address] Poole, who accepts patient for inpatient admission to med/surg floor with diagnosis of right leg diabetic ulcer. Pt made aware of change in disposition. Resting comfortably in stretcher with stable vital signs at this time. - RAD Interpretation Radiology Orders: 06/29/18 16:23 TIBIA FIBULA RIGHT [RAD] Stat - Medication Orders Current Medication Orders: Ceftaroline Fosamil 600 mg/ (Sodium Chloride) 100 mls @ 100 mls/hr IVPB STAT STA; Protocol Stop: 06/29/18 17:25 Disposition/Present on Arrival - Present on Arrival Any Indicators Present on Arrival: No History of DVT/PE: No History of Uncontrolled Diabetes: Yes Urinary Catheter: No History of Decub. Ulcer: Yes History Surgical Site Infection Following: None - Disposition Have Diagnosis and Disposition been Completed?: Yes Diagnosis: Diabetic ulcer of griffin Disposition: HOSPITALIZED Disposition Time: 18:00 Patient Plan: Admission Patient Problems: Current Active Problems Problem Status Onset Diabetic ulcer of griffin Acute Condition: STABLE
[2018-06-29 17:28] LABS: BASO # 0.01 K/mm3 (0.0-2.0); BASO % 0.1 % (0.0-3.0); EOS # 0.3 (0.0-0.7); EOS % 3.1 % (1.5-5.0); HEMOGLOBIN 12.1 g/dL (12.0-16.0); LYMPH # 1.8 (1.2-3.4); LYMPH % 22.1 % (22.0-35.0); MEAN CORPUSCULAR HEMOGLOBIN 25.9 pg (25.0-35.0); MEAN CORPUSCULAR HGB CONC 30.4 g/dl (31.0-37.0); MONO # 0.5 (0.1-0.6); MONO % 6.5 % (1.0-6.0); RBC 4.68 10^6/uL (3.5-6.1); RED CELL DISTRIBUTION WIDTH 17.9 % (11.5-14.5); WHITE BLOOD COUNT 8.2 10^3/uL (4.5-11.0)
[2018-06-29 17:31] LABS: INR 1.12; PARTIAL THROMBOPLASTIN TIME 34.1 Seconds (26.9-38.3); PROTHROMBIN TIME 12.4 SECONDS (9.4-12.5)
[2018-06-29 17:47] LABS: ALBUMIN 4.5 g/dL (3.0-4.8); ALT/SGPT 11 U/L (7-56); AST/SGOT 18 U/L (14-36); BLOOD UREA NITROGEN 15 mg/dL (7-21); CALCIUM 10.6 mg/dL (8.4-10.5); GFR NON-AFRICAN AMERICAN > 60
--- NOTE | 2018-06-29 18:21 | CP.PCM.HP ---
<Stewart Arciniega - Last Filed: 06/29/18 21:30> History of Present Illness - History of Present Illness History of Present Illness: Stewart Suze PGY2 IM H&P Note for Hospitalist Service cc: sent from Dr. Salmeron for chronic RLE wound Ms. Larry is a 42 year old homeless female with a PMH of DM2, morbid obesity, HTN, HLD, chronic venous ulcers, non healing right griffin wound, fibroid uterus and peripheral neuropathy presenting to the ED from Dr. Salmeron's office for infected right anterior griffin wound with request for IV abx and ID consult. The patient's RLE wound has been present for 6 months but recently has worsened. The ulcer is clean but has purulent matter. She denies CP, SOB, fevers, chills, nausea, vomiting, urinary complaints, recent travel and recent sickness. 12 point ROS was reviewed and is otherwise unremarkable. PMD: Juanito Khan PMH: as above PSH: L eye cyst drainage Meds: reviewed per MAR Allergies: NKDA SHx: denies smoking and drugs. Occasional drinking. Homeless FHx: Mom (DM2) Present on Admission - Present on Admission Any Indicators Present on Admission: No Review of Systems - Review of Systems All systems: reviewed and no additional remarkable complaints except (as per HPI) Past Patient History - Past Medical History & Family History Past Medical History?: Yes - Past Social History Smoking Status: Never Smoked Alcohol: Occasional Drugs: Denies Home Situation {Lives}: Homeless - CARDIAC Hx Cardiac Disorders: Yes Hx Hypertension: Yes - PULMONARY Hx Respiratory Disorders: No - NEUROLOGICAL Hx Neurological Disorder: No - HEENT Hx HEENT Problems: No - RENAL Hx Chronic Kidney Disease: No - ENDOCRINE/METABOLIC Hx Endocrine Disorders: Yes Hx Diabetes Mellitus Type 2: Yes - HEMATOLOGICAL/ONCOLOGICAL Hx Blood Disorders: Yes Hx Anemia: Yes Hx Blood Transfusions: No - INTEGUMENTARY Hx Dermatological Problems: No - MUSCULOSKELETAL/RHEUMATOLOGICAL Hx Musculoskeletal Disorders: No - GASTROINTESTINAL Hx Gastrointestinal Disorders: Yes Hx Gastroesophageal Reflux: Yes Other/Comment: fibroid cyst - GENITOURINARY/GYNECOLOGICAL Hx Genitourinary Disorders: No - PSYCHIATRIC Hx Psychophysiologic Disorder: No Hx Substance Use: No - SURGICAL HISTORY Hx Arthroscopy: Yes (left knee) Hx Orthopedic Surgery: Yes Other/Comment: bilateral knee surgery, bilateral upper eyelid surgery - ANESTHESIA Hx Anesthesia: Yes Hx Anesthesia Reactions: No Hx Malignant Hyperthermia: No Meds Allergies/Adverse Reactions: Allergies Allergy/AdvReac Type Severity Reaction Status Date / Time No Known Allergies Allergy Verified 06/29/18 16:13 Physical Exam - Constitutional Appears: Well, Non-toxic, No Acute Distress - Head Exam Head Exam: ATRAUMATIC, NORMAL INSPECTION - Eye Exam Eye Exam: EOMI, Normal appearance, PERRL - ENT Exam ENT Exam: Mucous Membranes Moist, Normal Exam - Neck Exam Neck exam: Positive for: Full Rom, Normal Inspection - Respiratory Exam Respiratory Exam: NORMAL BREATHING PATTERN. absent: Wheezes, Respiratory Distress - Cardiovascular Exam Cardiovascular Exam: RRR, +S1, +S2 - GI/Abdominal Exam GI & Abdominal Exam: Normal Bowel Sounds, Soft. absent: Distended, Tenderness Additional comments: morbidly obese body habitus - Extremities Exam Extremities exam: Positive for: full ROM, pedal edema (non-pitting edema b/l) Additional comments: b/l erythematous ulcers open ulcer RLE w/ purulent discharge - Back Exam Back exam: NORMAL INSPECTION - Neurological Exam Neurological exam: Alert, Oriented x3 - Psychiatric Exam Psychiatric exam: Normal Affect, Normal Mood - Skin Skin Exam: Normal Color, Warm Additional comments: ulcers noted above Results - Vital Signs Recent Vital Signs: Last Vital Signs Temp 98.5 F 06/29/18 16:18 Pulse 78 06/29/18 18:04 Resp 18 06/29/18 18:04 BP 153/97 H 06/29/18 18:04 Pulse Ox 98 06/29/18 18:04 - Labs Result Diagrams: 06/29/18 17:10 06/29/18 17:10 Labs: Laboratory Results - last 24 hr 06/29/18 06/29/18 06/29/18 17:10 17:10 17:10 WBC 8.2 RBC 4.68 Hgb 12.1 Hct 39.8 MCV 85.0 MCH 25.9 MCHC 30.4 L RDW 17.9 H Plt Count 237 MPV 10.0 Neut % (Auto) 68.2 H Lymph % (Auto) 22.1 [place] % (Auto) 6.5 H Eos % (Auto) 3.1 Baso % (Auto) 0.1 Lymph # (Auto) 1.8 [place] # (Auto) 0.5 Eos # (Auto) 0.3 Baso # (Auto) 0.01 Absolute Neuts (auto) 5.57 PT 12.4 INR 1.12 APTT 34.1 Sodium 141 Chloride 105 Carbon Dioxide 30 BUN 15 Creatinine 0.7 Est GFR ( Amer) > 60 Est GFR (Non-Af Amer) > 60 Random Glucose 105 Calcium 10.6 H Total Bilirubin 0.3 AST 18 ALT 11 Alkaline Phosphatase 84 Total Protein 8.7 H Albumin 4.5 Globulin 4.3 Albumin/Globulin Ratio 1.0 L Assessment & Plan - Assessment and Plan (Free Text) Assessment: 42 year old homeless female with a PMH of DM2, morbid obesity, HTN, HLD, chronic venous ulcers, non healing right griffin wound, fibroid uterus and peripheral neuropathy presenting to the ED from Dr. Salmeron's office for infected right anterior griffin wound with request for IV abx and ID consult. Plan: RLE diabetic non-healing ulcer - Given Teflaro in ED - cont Vanc and Zosyn empirically - ESR and CRP ordered - wound and blood cultures ordered - daily vit C, Zinc and MV ordered - lipid panel ordered - ID consulted, recs appreciated - Podiatry consulted, recs appreciated DM2 - Insulin sliding scale - Accuchecks ACHS - Consistent carb diet - A1c ordered HTN - cont Norvasc and Losartan Peripheral neuropathy - cont gabapentin HLD - cont Lipitor - Lipid panel ordered PPX: PTX for GI PPX Heparin for DVT PPX Consistent Carb diet Case was reviewed and discussed with Dr. Belkys Arciniega PGY2 <Supriya Rizvi - Last Filed: 07/01/18 11:38> Results - Vital Signs Recent Vital Signs: Last Vital Signs Temp 98.0 F 06/30/18 22:00 Pulse 67 06/30/18 22:00 Resp 19 06/30/18 22:00 BP 136/50 L 06/30/18 22:00 Pulse Ox 95 06/30/18 22:00 - Labs Result Diagrams: 06/30/18 06:20 06/30/18 06:20 Labs: Laboratory Results - last 24 hr 06/29/18 06/29/18 06/29/18 18:09 19:00 19:30 POC Glucose (mg/dL) Hemoglobin A1c 7.6 H C-Reactive Protein 13.00 H HIV 1&2 Ag/Ab, 4th Gen Nonreactive 06/30/18 06/30/18 06/30/18 11:51 16:30 20:59 POC Glucose (mg/dL) 74 120 H 124 H Hemoglobin A1c C-Reactive Protein HIV 1&2 Ag/Ab, 4th Gen 07/01/18 06:25 POC Glucose (mg/dL) 96 Hemoglobin A1c C-Reactive Protein HIV 1&2 Ag/Ab, 4th Gen Attending/Attestation - Attestation I have personally seen and examined this patient.: Yes I have fully participated in the care of the patient.: Yes I have reviewed all pertinent clinical information: Yes Notes (Text): 07/01/18 11:36 Patient was seen and examined with health care / medical job titles. 42 year old homeless female with a PMH of DM2, morbid obesity, HTN, HLD, chronic venous ulcers, non healing right griffin wound, fibroid uterus and peripheral neuropathy presenting to the ED from Dr. Salmeron's office for infected right anterior griffin wound. We will start patient on IV antibiotics. We will get wound cultures, and CRP. We will monitor blood sugars We will also get ID and Podiatry consult. Management plan was discussed in detail with patient. Education was provided.
[2018-06-29] MEDS: Piperacillin/Tazobact 3.375 gm 100 ML IVPB SCH (18:44)
[2018-06-29] MEDS: Insulin Lispro (humaLOG) MEDIUM Coverage SC SCH (21:53)
[2018-06-29] MEDS: Vancomycin 2 GM in Sodium Chloride 0.9% 500 ML IVPB SCH (23:03)
[2018-06-30] MEDS ORDERED: Influenza Vaccine 60 mcg/0.5 mL SYR (4YR UP) IM ONE (04:32)
[2018-06-30] MEDS ORDERED: Pneumococcal 23-Valent Vaccine IM ONE (04:32)
[2018-06-30] MEDS: Piperacillin/Tazobact 3.375 gm 100 ML IVPB SCH (05:19)
[2018-06-30] MEDS: Pantoprazole 40 mg EC Tab PO SCH (06:27)
[2018-06-30 06:49] LABS: BASO # 0.01 K/mm3 (0.0-2.0); BASO % 0.2 % (0.0-3.0); EOS # 0.2 (0.0-0.7); EOS % 3.7 % (1.5-5.0); HEMOGLOBIN 11.3 g/dL (12.0-16.0); LYMPH # 1.4 (1.2-3.4); LYMPH % 24.1 % (22.0-35.0); MEAN CORPUSCULAR HEMOGLOBIN 25.2 pg (25.0-35.0); MEAN CORPUSCULAR HGB CONC 29.7 g/dl (31.0-37.0); MEAN PLATELET VOLUME 10.4 fl (7.0-11.0); MONO # 0.5 (0.1-0.6); MONO % 7.6 % (1.0-6.0); RBC 4.48 10^6/uL (3.5-6.1); RED CELL DISTRIBUTION WIDTH 17.7 % (11.5-14.5); WHITE BLOOD COUNT 5.9 10^3/uL (4.5-11.0)
[2018-06-30 07:05] LABS: ALT/SGPT 11 U/L (7-56); AST/SGOT 16 U/L (14-36); BLOOD UREA NITROGEN 14 mg/dL (7-21); CALCIUM 10.2 mg/dL (8.4-10.5); GFR NON-AFRICAN AMERICAN > 60
[2018-06-30] MEDS: Insulin Lispro (humaLOG) MEDIUM Coverage SC SCH ×4 (08:18→22:47)
[2018-06-30] MEDS: Cholecalciferol 1,000 INTLU TAB PO SCH (10:02)
[2018-06-30] MEDS: Vancomycin 2 GM in Sodium Chloride 0.9% 500 ML IVPB SCH (10:03)
[2018-06-30] MEDS: Vitamins A & D Oint UD Foilpak TOP SCH ×2 (10:04→17:15)
--- NOTE | 2018-06-30 10:05 | CP.PCM.CON ---
<Marilou Ochoa - Last Filed: 06/30/18 11:28> History of Present Illness - History of Present Illness History of Present Illness: Podiatry Consult Note: Dr. Carlton 42 year old female patient, seen and evaluated for R anterior leg ulceration. Patient states that she was seen by Dr. Salmeron yesterday in her office and recommended she come to the hospital. She states that she has had the ulceration for about a year and it is currently causing her pain. Denies nausea/vomiting/fever/chest pain. PMHx: Anemia, HTN, HLD, DM PSHx: denies ALL: NKDA Review of Systems - Review of Systems Review of Systems: 10 point ROS negative except what is mentioned in HPI Past Patient History - Past Medical History & Family History Past Medical History?: Yes - Past Social History Smoking Status: Never Smoked - CARDIAC Hx Cardiac Disorders: Yes Hx Hypertension: Yes - PULMONARY Hx Respiratory Disorders: No - NEUROLOGICAL Hx Neurological Disorder: No - HEENT Hx HEENT Problems: No - RENAL Hx Chronic Kidney Disease: No - ENDOCRINE/METABOLIC Hx Endocrine Disorders: Yes Hx Diabetes Mellitus Type 2: Yes - HEMATOLOGICAL/ONCOLOGICAL Hx Blood Disorders: Yes Hx Anemia: Yes - INTEGUMENTARY Hx Dermatological Problems: No - MUSCULOSKELETAL/RHEUMATOLOGICAL Hx Falls: Yes - GASTROINTESTINAL Hx Gastrointestinal Disorders: Yes Hx Gastroesophageal Reflux: Yes Other/Comment: fibroid cyst - GENITOURINARY/GYNECOLOGICAL Hx Genitourinary Disorders: No - PSYCHIATRIC Hx Psychophysiologic Disorder: No Hx Substance Use: No - SURGICAL HISTORY Hx Orthopedic Surgery: Yes Other/Comment: bilateral knee surgery, bilateral upper eyelid surgery - ANESTHESIA Hx Anesthesia: Yes Hx Anesthesia Reactions: No Hx Malignant Hyperthermia: No Meds Allergies/Adverse Reactions: Allergies Allergy/AdvReac Type Severity Reaction Status Date / Time No Known Allergies Allergy Verified 06/29/18 16:13 - Medications Medications: Current Medications Allopurinol (Zyloprim) 100 mg PO DAILY [facility] Last Admin: 06/30/18 10:03 Dose: 100 mg Amlodipine Besylate (Norvasc) 5 mg PO DAILY [facility] Last Admin: 06/30/18 10:02 Dose: 5 mg Ascorbic Acid (Vitamin C 500 Mg Tab) 500 mg PO DAILY [facility] Last Admin: 06/30/18 10:03 Dose: 500 mg Aspirin (Aspirin Chewable) 81 mg PO DAILY [facility] Last Admin: 06/30/18 10:03 Dose: 81 mg Atorvastatin Calcium (Lipitor) 40 mg PO HS [facility] Last Admin: 06/29/18 22:04 Dose: Not Given Cholecalciferol (Vitamin D) 2,000 intlu PO DAILY [facility] Last Admin: 06/30/18 10:02 Dose: 2,000 intlu Gabapentin (Neurontin) 100 mg PO BID [facility]; Protocol Last Admin: 06/30/18 10:03 Dose: 100 mg Heparin Sodium (Porcine) (Heparin) 5,000 units SC Q8 ROMI; Protocol Last Admin: 06/30/18 06:27 Dose: 5,000 units Vancomycin HCl 2 gm/ Sodium (Chloride) 500 mls @ 170 mls/hr IVPB Q12 ROMI; Prot ocol Last Admin: 06/30/18 10:03 Dose: 170 mls/hr Piperacillin Sod/Tazobactam Sod (Zosyn 3.375 In Ns 100ml) 100 mls @ 25 mls/hr IVPB Q8 ROMI; Protocol Stop: 07/01/18 01:59 Ibuprofen (Motrin Tab) 400 mg PO Q8H PRN PRN Reason: Pain, severe (8-10) Last Admin: 06/30/18 06:27 Dose: 400 mg Insulin Human Lispro (Humalog Med) 0 units SC ACHS [facility]; Protocol Last Admin: 06/30/18 08:18 Dose: Not Given Losartan Potassium (Cozaar) 50 mg PO DAILY [facility] Last Admin: 06/30/18 10:03 Dose: 50 mg Pantoprazole Sodium (Protonix Ec Tab) 40 mg PO 0600 [facility] Last Admin: 06/30/18 06:27 Dose: 40 mg Vitamin A (Vitamin A & D Oint Ud Foilpak) 1 ea TOP BID [facility] Last Admin: 06/30/18 10:04 Dose: 1 ea Zinc Sulfate (Zinc Sulfate 220 Mg Cap) 220 mg PO DAILY [facility] Last Admin: 06/30/18 10:03 Dose: 220 mg Physical Exam - Constitutional Appears: Non-toxic, No Acute Distress - Head Exam Head Exam: ATRAUMATIC, NORMOCEPHALIC - Extremities Exam Additional comments: RLE focused exam Vasc: DP and PT pulses mildly palpable; cap refill <3 seconds; edema to lower extremity present secondary to lymphedema and obesity Ortho: pain upon palpation of the right leg wound Neuro: gross and protective sensation intact Derm: Ulceration appreciated to the anterior aspect of the R leg, measuring approximately 3 cm x 2.5 cm x .1 cm with 100% granular base. No erythema appreciated periwound. Mild serious drainage, no active purulence appreciated, no cellulitis. - Neurological Exam Neurological exam: Alert, Oriented x3 - Psychiatric Exam Psychiatric exam: Normal Affect, Normal Mood Results - Vital Signs Recent Vital Signs: Last Vital Signs Temp 98.4 F 06/30/18 06:00 Pulse 90 06/30/18 10:03 Resp 19 06/30/18 06:00 BP 144/79 06/30/18 10:03 Pulse Ox 93 L 06/30/18 06:00 - Labs Result Diagrams: 06/30/18 06:20 06/30/18 06:20 Labs: Laboratory Results - last 24 hr 06/29/18 06/29/18 06/29/18 17:10 17:10 17:10 WBC 8.2 RBC 4.68 Hgb 12.1 Hct 39.8 MCV 85.0 MCH 25.9 MCHC 30.4 L RDW 17.9 H Plt Count 237 MPV 10.0 Neut % (Auto) 68.2 H Lymph % (Auto) 22.1 [place] % (Auto) 6.5 H Eos % (Auto) 3.1 Baso % (Auto) 0.1 Lymph # (Auto) 1.8 [place] # (Auto) 0.5 Eos # (Auto) 0.3 Baso # (Auto) 0.01 Absolute Neuts (auto) 5.57 ESR PT 12.4 INR 1.12 APTT 34.1 Sodium 141 Potassium 4.5 Chloride 105 Carbon Dioxide 30 Anion Gap 10 BUN 15 Creatinine 0.7 Est GFR ( Amer) > 60 Est GFR (Non-Af Amer) > 60 POC Glucose (mg/dL) Random Glucose 105 Calcium 10.6 H Phosphorus Magnesium Total Bilirubin 0.3 AST 18 ALT 11 Alkaline Phosphatase 84 Total Protein 8.7 H Albumin 4.5 Globulin 4.3 Albumin/Globulin Ratio 1.0 L Triglycerides Cholesterol LDL Cholesterol Direct HDL Cholesterol 06/29/18 06/29/18 06/30/18 18:09 21:35 06:20 WBC 5.9 D RBC 4.48 Hgb 11.3 L Hct 38.1 MCV 85.0 MCH 25.2 MCHC 29.7 L RDW 17.7 H Plt Count 234 MPV 10.4 Neut % (Auto) 64.4 Lymph % (Auto) 24.1 [place] % (Auto) 7.6 H Eos % (Auto) 3.7 Baso % (Auto) 0.2 Lymph # (Auto) 1.4 [place] # (Auto) 0.5 Eos # (Auto) 0.2 Baso # (Auto) 0.01 Absolute Neuts (auto) 3.82 ESR 43 H PT INR APTT Sodium Potassium Chloride Carbon Dioxide Anion Gap BUN Creatinine Est GFR ( Amer) Est GFR (Non-Af Amer) POC Glucose (mg/dL) 101 Random Glucose Calcium Phosphorus Magnesium Total Bilirubin AST ALT Alkaline Phosphatase Total Protein Albumin Globulin Albumin/Globulin Ratio Triglycerides Cholesterol LDL Cholesterol Direct HDL Cholesterol 06/30/18 06/30/18 06/30/18 06:20 06:25 07:40 WBC RBC Hgb Hct MCV MCH MCHC RDW Plt Count MPV Neut % (Auto) Lymph % (Auto) [place] % (Auto) Eos % (Auto) Baso % (Auto) Lymph # (Auto) [place] # (Auto) Eos # (Auto) Baso # (Auto) Absolute Neuts (auto) ESR PT INR APTT Sodium 141 Potassium 4.5 Chloride 107 Carbon Dioxide 27 Anion Gap 11 BUN 14 Creatinine 0.7 Est GFR ( Amer) > 60 Est GFR (Non-Af Amer) > 60 POC Glucose (mg/dL) 89 Random Glucose 104 Calcium 10.2 Phosphorus 4.8 H Magnesium 1.7 Total Bilirubin 0.2 AST 16 ALT 11 Alkaline Phosphatase 70 Total Protein 7.9 Albumin 4.0 Globulin 3.9 Albumin/Globulin Ratio 1.0 L Triglycerides 101 Cholesterol 152 LDL Cholesterol Direct 86 HDL Cholesterol 26 L Assessment & Plan - Assessment and Plan (Free Text) Assessment: 42 year old female with R anterior leg ulceration Plan: Patient seen and evaluated with Dr. Carlton Afebrile, absent leukocytosis R tib/fib x-rays taken; no osseous involvement (read by me) Wound culture taken; pending Blood culture taken; pending Local wound care: ulceration cleansed with saline and dressed with xeroform and DSD Continue with IV abx per Dr. Kaiser Will continue to follow Thank you for the consult - Date & Time Date: 06/30/18 Time: 10:05 <Perry Carlton - Last Filed: 07/01/18 09:11> Meds - Medications Medications: Current Medications Allopurinol (Zyloprim) 100 mg PO DAILY [facility] Last Admin: 06/30/18 10:03 Dose: 100 mg Amlodipine Besylate (Norvasc) 5 mg PO DAILY [facility] Last Admin: 06/30/18 10:02 Dose: 5 mg Ascorbic Acid (Vitamin C 500 Mg Tab) 500 mg PO DAILY [facility] Last Admin: 06/30/18 10:03 Dose: 500 mg Aspirin (Aspirin Chewable) 81 mg PO DAILY [facility] Last Admin: 06/30/18 10:03 Dose: 81 mg Atorvastatin Calcium (Lipitor) 40 mg PO HS [facility] Last Admin: 06/30/18 21:18 Dose: 40 mg Cholecalciferol (Vitamin D) 2,000 intlu PO DAILY [facility] Last Admin: 06/30/18 10:02 Dose: 2,000 intlu Gabapentin (Neurontin) 100 mg PO BID [facility]; Protocol Last Admin: 06/30/18 17:21 Dose: 100 mg Heparin Sodium (Porcine) (Heparin) 5,000 units SC Q8 [facility]; Protocol Last Admin: 07/01/18 05:59 Dose: 5,000 units Ibuprofen (Motrin Tab) 400 mg PO Q6H PRN PRN Reason: Pain, severe (8-10) Last Admin: 07/01/18 03:15 Dose: 400 mg Insulin Human Lispro (Humalog Med) 0 units SC ACHS [facility]; Protocol Last Admin: 07/01/18 07:39 Dose: Not Given Losartan Potassium (Cozaar) 50 mg PO DAILY [facility] Last Admin: 06/30/18 10:03 Dose: 50 mg Pantoprazole Sodium (Protonix Ec Tab) 40 mg PO 0600 [facility] Last Admin: 07/01/18 06:00 Dose: 40 mg Tramadol HCl (Ultram) 50 mg PO DAILY PRN PRN Reason: Pain, severe (8-10) Last Admin: 06/30/18 11:25 Dose: 50 mg Vitamin A (Vitamin A & D Oint Ud Foilpak) 1 ea TOP BID [facility] Last Admin: 06/30/18 17:15 Dose: Not Given Zinc Sulfate (Zinc Sulfate 220 Mg Cap) 220 mg PO DAILY [facility] Last Admin: 06/30/18 10:03 Dose: 220 mg Results - Vital Signs Recent Vital Signs: Last Vital Signs Temp 98.0 F 06/30/18 22:00 Pulse 67 06/30/18 22:00 Resp 19 06/30/18 22:00 BP 136/50 L 06/30/18 22:00 Pulse Ox 95 06/30/18 22:00 - Labs Result Diagrams: 06/30/18 06:20 06/30/18 06:20 Labs: Laboratory Results - last 24 hr 06/29/18 06/29/18 06/29/18 18:09 19:00 19:30 POC Glucose (mg/dL) Hemoglobin A1c 7.6 H C-Reactive Protein 13.00 H HIV 1&2 Ag/Ab, 4th Gen Nonreactive 06/30/18 06/30/18 06/30/18 11:51 16:30 20:59 POC Glucose (mg/dL) 74 120 H 124 H Hemoglobin A1c C-Reactive Protein HIV 1&2 Ag/Ab, 4th Gen Attending/Attestation - Attestation I have personally seen and examined this patient.: Yes I have fully participated in the care of the patient.: Yes I have reviewed all pertinent clinical information: Yes
--- NOTE | 2018-06-30 11:38 | RAD ---
Date of service: 06/29/2018 PROCEDURE: Radiographs of the right tibia and fibula. HISTORY: right anterior griffin wound COMPARISON: None available TECHNIQUE: Frontal and lateral views obtained. FINDINGS: BONES: No fracture or destructive lesion. JOINT SPACES: Unremarkable. OTHER FINDINGS: None. IMPRESSION: Unremarkable radiographs of the right tibia and fibula.
--- NOTE | 2018-06-30 11:53 | CP.PCM.PN ---
<Joe Martinez - Last Filed: 06/30/18 11:50> Subjective - Date & Time of Evaluation Date of Evaluation: 06/30/18 Time of Evaluation: 11:50 - Subjective Subjective: Joe Martinez, PGY-1, Internal Medicine Progress Note for Dr. Rizvi Patient was seen and evaluated at bedside. Patient was somnolent at bedside. Patient reported right foot pain, right foot odorous discharge, right foot edema, and wound that does not extend to the bone. Patient denies any fevers, chest pain, heart palpitations, shortness of breath, nausea, vomiting, constipation, diarrhea, dysuria, hematuria. 12-point ROS was unremarkable except for what was mentioned above. Objective - Vital Signs/Intake and Output Vital Signs (last 24 hours): Temp Pulse Resp BP Pulse Ox 98.4 F 90 19 144/79 93 L 06/30/18 06:00 06/30/18 10:03 06/30/18 06:00 06/30/18 10:03 06/30/18 06:00 Intake and Output: 06/30/18 06/30/18 06:59 18:59 Intake Total 240 Balance 240 - Medications Medications: Current Medications Allopurinol (Zyloprim) 100 mg PO DAILY [facility] Last Admin: 06/30/18 10:03 Dose: 100 mg Amlodipine Besylate (Norvasc) 5 mg PO DAILY [facility] Last Admin: 06/30/18 10:02 Dose: 5 mg Ascorbic Acid (Vitamin C 500 Mg Tab) 500 mg PO DAILY [facility] Last Admin: 06/30/18 10:03 Dose: 500 mg Aspirin (Aspirin Chewable) 81 mg PO DAILY [facility] Last Admin: 06/30/18 10:03 Dose: 81 mg Atorvastatin Calcium (Lipitor) 40 mg PO HS [facility] Last Admin: 06/29/18 22:04 Dose: Not Given Cholecalciferol (Vitamin D) 2,000 intlu PO DAILY [facility] Last Admin: 06/30/18 10:02 Dose: 2,000 intlu Gabapentin (Neurontin) 100 mg PO BID [facility]; Protocol Last Admin: 06/30/18 10:03 Dose: 100 mg Heparin Sodium (Porcine) (Heparin) 5,000 units SC Q8 [facility]; Protocol Last Admin: 06/30/18 06:27 Dose: 5,000 units Vancomycin HCl 2 gm/ Sodium (Chloride) 500 mls @ 170 mls/hr IVPB Q12 [facility]; Protocol Last Admin: 06/30/18 10:03 Dose: 170 mls/hr Piperacillin Sod/Tazobactam Sod (Zosyn 3.375 In Ns 100ml) 100 mls @ 25 mls/hr IVPB Q8 [facility]; Protocol Stop: 07/01/18 01:59 Ibuprofen (Motrin Tab) 400 mg PO Q6H PRN PRN Reason: Pain, severe (8-10) Insulin Human Lispro (Humalog Med) 0 units SC ACHS [facility]; Protocol Last Admin: 06/30/18 08:18 Dose: Not Given Losartan Potassium (Cozaar) 50 mg PO DAILY [facility] Last Admin: 06/30/18 10:03 Dose: 50 mg Pantoprazole Sodium (Protonix Ec Tab) 40 mg PO 0600 [facility] Last Admin: 06/30/18 06:27 Dose: 40 mg Tramadol HCl (Ultram) 50 mg PO DAILY PRN PRN Reason: Pain, severe (8-10) Last Admin: 06/30/18 11:25 Dose: 50 mg Vitamin A (Vitamin A & D Oint Ud Foilpak) 1 ea TOP BID [facility] Last Admin: 06/30/18 10:04 Dose: 1 ea Zinc Sulfate (Zinc Sulfate 220 Mg Cap) 220 mg PO DAILY [facility] Last Admin: 06/30/18 10:03 Dose: 220 mg - Labs Labs: 06/30/18 06:20 06/30/18 06:20 PT 12.4 SECONDS (9.4-12.5) 06/29/18 17:10 INR 1.12 06/29/18 17:10 APTT 34.1 Seconds (26.9-38.3) 06/29/18 17:10 - Constitutional Appears: Well, Non-toxic, No Acute Distress - Head Exam Head Exam: ATRAUMATIC, NORMAL INSPECTION, NORMOCEPHALIC - Eye Exam Eye Exam: EOMI, PERRL - Respiratory Exam Respiratory Exam: Clear to Ausculation Bilateral, NORMAL BREATHING PATTERN - Cardiovascular Exam Cardiovascular Exam: REGULAR RHYTHM, RRR - GI/Abdominal Exam GI & Abdominal Exam: Soft, Normal Bowel Sounds. absent: Tenderness - Extremities Exam Extremities Exam: Full ROM - Neurological Exam Neurological Exam: Alert, Awake, CN II-XII Intact, Oriented x3 - Psychiatric Exam Psychiatric exam: Normal Affect, Normal Mood - Skin Additional comments: Right foot wound extending above ankle with kim friable tissue and yellow discharge. Assessment and Plan - Assessment and Plan (Free Text) Assessment: 42 year old homeless female with a PMH of DM2, morbid obesity, HTN, HLD, chronic venous ulcers, non healing right griffin wound, fibroid uterus and peripheral neuropathy presents with chronic right foot wound for 1 month. Plan: Right lower extremity non-healing ulcer -Given Teflaro in the ED -Right tibia and fibular X ray 06/29: no osseous involvement as read by me -Afebrile, no leukocytosis -ESR elevated at 43, follow up CRP and HIV -Follow up blood and wound cultures -Continue vancomycin and zosyn day 2 -Continue with vitamin C, zinc, and vitamin A and D -Continue with tramadol PRN and ibuprofen PRN for pain. -Continue with clean wound with saline, xxeroform and DSD as per podiatry. -ID, Dr. Kaiser, consulted for recommendations. -Podiatry, Dr. Salmeron, consulted for recommendations. Diabetes mellitus type II -HgbA1c: 7.6 -Continue sliding scale insulin -Accuchecks ACHS Hypertension -Patient is mildly hypertensive at 144/79 -Continue with home norvasc and losartan Diabetic Peripheral neuropathy -Continue with home gabapentin Hyperlipidemia -Lipid panel within normal limits except for HDL which was low at 26 -Continue with home lipitor Hyperphosphatemia -Mild, Continue to monitor History of gout -Continue with home allopurinol. GI prophylaxis: protonix DVT prophylaxis: heparin Patient plan discussed with attending. <Supriya Rizvi - Last Filed: 07/01/18 11:42> Objective - Vital Signs/Intake and Output Vital Signs (last 24 hours): Temp Pulse Resp BP Pulse Ox 98.0 F 67 19 136/50 L 95 06/30/18 22:00 06/30/18 22:00 06/30/18 22:00 06/30/18 22:00 06/30/18 22:00 Intake and Output: 07/01/18 07/01/18 06:59 18:59 Intake Total 1280 Output Total 200 Balance 1080 - Medications Medications: Current Medications Allopurinol (Zyloprim) 100 mg PO DAILY [facility] Last Admin: 07/01/18 09:32 Dose: 100 mg Amlodipine Besylate (Norvasc) 5 mg PO DAILY [facility] Last Admin: 07/01/18 09:32 Dose: 5 mg Ascorbic Acid (Vitamin C 500 Mg Tab) 500 mg PO DAILY [facility] Last Admin: 07/01/18 09:32 Dose: 500 mg Aspirin (Aspirin Chewable) 81 mg PO DAILY [facility] Last Admin: 07/01/18 09:32 Dose: 81 mg Atorvastatin Calcium (Lipitor) 40 mg PO HS [facility] Last Admin: 06/30/18 21:18 Dose: 40 mg Cholecalciferol (Vitamin D) 2,000 intlu PO DAILY [facility] Last Admin: 07/01/18 09:31 Dose: 2,000 intlu Gabapentin (Neurontin) 100 mg PO BID [facility]; Protocol Last Admin: 07/01/18 09:31 Dose: 100 mg Heparin Sodium (Porcine) (Heparin) 5,000 units SC Q8 [facility]; Protocol Last Admin: 07/01/18 05:59 Dose: 5,000 units Ibuprofen (Motrin Tab) 400 mg PO Q6H PRN PRN Reason: Pain, severe (8-10) Last Admin: 07/01/18 03:15 Dose: 400 mg Insulin Human Lispro (Humalog Med) 0 units SC ACHS [facility]; Protocol Last Admin: 07/01/18 07:39 Dose: Not Given Losartan Potassium (Cozaar) 50 mg PO DAILY [facility] Last Admin: 07/01/18 09:32 Dose: 50 mg Pantoprazole Sodium (Protonix Ec Tab) 40 mg PO 0600 [facility] Last Admin: 07/01/18 06:00 Dose: 40 mg Tramadol HCl (Ultram) 50 mg PO DAILY PRN PRN Reason: Pain, severe (8-10) Last Admin: 06/30/18 11:25 Dose: 50 mg Vitamin A (Vitamin A & D Oint Ud Foilpak) 1 ea TOP BID [facility] Last Admin: 07/01/18 09:32 Dose: Not Given Zinc Sulfate (Zinc Sulfate 220 Mg Cap) 220 mg PO DAILY [facility] Last Admin: 07/01/18 09:31 Dose: 220 mg - Labs Labs: 06/30/18 06:20 06/30/18 06:20 PT 12.4 SECONDS (9.4-12.5) 06/29/18 17:10 INR 1.12 06/29/18 17:10 APTT 34.1 Seconds (26.9-38.3) 06/29/18 17:10 Attending/Attestation - Attestation I have personally seen and examined this patient.: Yes I have fully participated in the care of the patient.: Yes I have reviewed all pertinent clinical information, including history, physical exam and plan: Yes Notes (Text): 07/01/18 11:42 Medical record note made by the resident after discussion with my direction and input after the patient was personally seen and examined by me. I have reviewed the chart and agree that the record accurately reflects by personal performance of the history, physical exam, data review, and medical decision-making, in the course for the patient. I have also personally directed the plan of care.
[2018-06-30] MEDS ORDERED: Piperacillin/Tazobact 3.375 gm 100 ML IVPB SCH (14:00)
--- NOTE | 2018-07-01 03:30 | CON ---
DATE: 06/30/2018 The patient is in bed. CHIEF COMPLAINT: Lower extremity ulcer. HISTORY OF PRESENT ILLNESS: A 42-year-old female with past medical history of super morbid obesity BMI of 79.9, hypertension, diabetes, dyslipidemia, chronic leg ulcer, fibroid uterus, peripheral neuropathy, chronic right griffin wound. The patient is extremely huge, has very large lower extremity chronic ulcer, admitted with chronic ulcer of lower extremity. He states no fever and no chills. No nausea. No vomiting. No abdominal pain, diarrhea, or constipation. PAST MEDICAL HISTORY: Significant for super morbid obesity BMI of 76, diabetes mellitus, hypertension, dyslipidemia, chronic leg ulcer, fibroid uterus, peripheral neuropathy, and chronic right griffin wound. PAST SURGICAL HISTORY: Significant for bilateral knee surgery and bilateral eyelid surgery. ALLERGIES: THE PATIENT HAS NO KNOWN ALLERGIES. MEDICATIONS AT HOME: Reviewed. PHYSICAL EXAMINATION VITAL SIGNS: Temperature 98, blood pressure 140/70, respiratory rate of 18, and heart rate of 90. HEENT: Unremarkable. NECK: Supple. LUNGS: Decreased breath sounds. HEART: Normal S1 and S2. ABDOMEN: Soft and nontender. EXTREMITIES: Lower extremity reveals the patient has an ulcer. No evidence of infection. No erythema and warm to touch and has chronic ulcer. LABORATORY DATA: Reveals a white count is 5.9. Sed rate is 43. Coagulation is noted. Chemistries; is noted. C-reactive protein is 13. Serology for HIV is negative. Microbiology reveals leg cultures are pending. Blood cultures are negative. ASSESSMENT AND PLAN: A 42-year-old super morbid obese with BMI of 76 with chronic right anterior griffin ulcer and right lower extremity diabetic non-healing ulcer. No evidence of systemic disease. We will discontinue the antibiotics. Case discussed with podiatry and Dr. Salmeron. She plans to do biopsy. We will hold off any antibiotics at this time. Pending biopsy determine the bone involvement. Should recommend bone biopsy for routine gram stain cultures pathology for osteomyelitis in addition to special stain for AFB, fungal stains, and cultures for AFB and cultures for fungal in addition to gram stain and routine cultures and pathology. We will follow with you. Davion Kaiser MD
[2018-07-01] MEDS: Pantoprazole 40 mg EC Tab PO SCH (06:00)
[2018-07-01] MEDS: Insulin Lispro (humaLOG) MEDIUM Coverage SC SCH ×4 (07:39→22:53)
--- NOTE | 2018-07-01 08:50 | CP.PCM.PN ---
<Stella Goode - Last Filed: 07/01/18 11:06> Subjective - Date & Time of Evaluation Date of Evaluation: 07/01/18 Time of Evaluation: 08:48 - Subjective Subjective: Podiatry Progress Note: Dr. Carlton 42 year old female patient, seen and evaluated for R anterior leg ulceration. Denies acute overnight events. Denies nausea/vomiting/fever/chest pain. Objective - Vital Signs/Intake and Output Vital Signs (last 24 hours): Temp Pulse Resp BP Pulse Ox 98.0 F 67 19 136/50 L 95 06/30/18 22:00 06/30/18 22:00 06/30/18 22:00 06/30/18 22:00 06/30/18 22:00 Intake and Output: 07/01/18 07/01/18 06:59 18:59 Intake Total 1280 Output Total 200 Balance 1080 - Medications Medications: Current Medications Allopurinol (Zyloprim) 100 mg PO DAILY [facility] Last Admin: 06/30/18 10:03 Dose: 100 mg Amlodipine Besylate (Norvasc) 5 mg PO DAILY [facility] Last Admin: 06/30/18 10:02 Dose: 5 mg Ascorbic Acid (Vitamin C 500 Mg Tab) 500 mg PO DAILY [facility] Last Admin: 06/30/18 10:03 Dose: 500 mg Aspirin (Aspirin Chewable) 81 mg PO DAILY [facility] Last Admin: 06/30/18 10:03 Dose: 81 mg Atorvastatin Calcium (Lipitor) 40 mg PO HS [facility] Last Admin: 06/30/18 21:18 Dose: 40 mg Cholecalciferol (Vitamin D) 2,000 intlu PO DAILY [facility] Last Admin: 06/30/18 10:02 Dose: 2,000 intlu Gabapentin (Neurontin) 100 mg PO BID [facility]; Protocol Last Admin: 06/30/18 17:21 Dose: 100 mg Heparin Sodium (Porcine) (Heparin) 5,000 units SC Q8 [facility]; Protocol Last Admin: 07/01/18 05:59 Dose: 5,000 units Ibuprofen (Motrin Tab) 400 mg PO Q6H PRN PRN Reason: Pain, severe (8-10) Last Admin: 07/01/18 03:15 Dose: 400 mg Insulin Human Lispro (Humalog Med) 0 units SC ACHS [facility]; Protocol Last Admin: 07/01/18 07:39 Dose: Not Given Losartan Potassium (Cozaar) 50 mg PO DAILY [facility] Last Admin: 06/30/18 10:03 Dose: 50 mg Pantoprazole Sodium (Protonix Ec Tab) 40 mg PO 0600 [facility] Last Admin: 07/01/18 06:00 Dose: 40 mg Tramadol HCl (Ultram) 50 mg PO DAILY PRN PRN Reason: Pain, severe (8-10) Last Admin: 06/30/18 11:25 Dose: 50 mg Vitamin A (Vitamin A & D Oint Ud Foilpak) 1 ea TOP BID [facility] Last Admin: 06/30/18 17:15 Dose: Not Given Zinc Sulfate (Zinc Sulfate 220 Mg Cap) 220 mg PO DAILY [facility] Last Admin: 06/30/18 10:03 Dose: 220 mg - Labs Labs: 06/30/18 06:20 06/30/18 06:20 PT 12.4 SECONDS (9.4-12.5) 06/29/18 17:10 INR 1.12 06/29/18 17:10 APTT 34.1 Seconds (26.9-38.3) 06/29/18 17:10 - Constitutional Appears: Well, Non-toxic, No Acute Distress - Head Exam Head Exam: ATRAUMATIC, NORMOCEPHALIC - Eye Exam Eye Exam: Normal appearance - Extremities Exam Additional comments: RLE focused exam Vasc: DP and PT pulses mildly palpable; cap refill <3 seconds; edema to lower extremity present secondary to lymphedema and obesity Ortho: pain upon palpation of the right leg wound Neuro: gross and protective sensation intact Derm: Ulceration appreciated to the anterior aspect of the R leg, measuring approximately 3 cm x 2.5 cm x .1 cm with 100% granular base. No erythema appreciated periwound. Mild serious drainage, no active purulence appreciated, no cellulitis. - Neurological Exam Neurological Exam: Alert, Awake, Oriented x3 Assessment and Plan - Assessment and Plan (Free Text) Assessment: 42 year old female with R anterior leg ulceration Plan: Patient seen and evaluated with Dr. Carlton Afebrile, absent leukocytosis R tib/fib x-rays taken; no osseous involvement Wound culture taken; pending Blood culture taken; pending Local wound care: ulceration cleansed with saline and dressed with xeroform and DSD Continue with IV abx per Dr. Kaiser Plan for surgery Tuesday at 7:30am for right leg wound debridement with biopsy of the woud with Dr. Salmeron Please medically optimize patient and provide medical/cardiac clearance Will continue to follow <Perry Carlton - Last Filed: 07/04/18 12:39> Objective - Vital Signs/Intake and Output Vital Signs (last 24 hours): Temp Pulse Resp BP Pulse Ox 97.5 F L 85 18 136/83 93 L 07/04/18 06:00 07/04/18 06:00 07/04/18 06:00 07/04/18 06:00 07/04/18 06:00 Intake and Output: 07/04/18 07/04/18 06:59 18:59 Intake Total 360 Balance 360 - Medications Medications: Current Medications Acetaminophen (Tylenol 325mg Tab) 650 mg PO Q4H PRN PRN Reason: Pain, Mild (1-3) Allopurinol (Zyloprim) 100 mg PO DAILY [facility] Last Admin: 07/03/18 17:48 Dose: 100 mg Amlodipine Besylate (Norvasc) 5 mg PO DAILY [facility] Last Admin: 07/03/18 10:54 Dose: 5 mg Ascorbic Acid (Vitamin C 500 Mg Tab) 500 mg PO DAILY [facility] Last Admin: 07/03/18 10:54 Dose: 500 mg Aspirin (Aspirin Chewable) 81 mg PO DAILY [facility] Last Admin: 07/03/18 10:53 Dose: 81 mg Atorvastatin Calcium (Lipitor) 40 mg PO HS [facility] Last Admin: 07/03/18 22:15 Dose: 40 mg Cholecalciferol (Vitamin D) 2,000 intlu PO DAILY [facility] Last Admin: 07/03/18 10:54 Dose: 2,000 intlu Gabapentin (Neurontin) 300 mg PO HS [facility]; Protocol Last Admin: 07/03/18 22:16 Dose: 300 mg Heparin Sodium (Porcine) (Heparin) 5,000 units SC Q8 [facility]; Protocol Last Admin: 07/04/18 06:32 Dose: 5,000 units Vancomycin HCl (Vancomycin 1gm) 1 gm in 250 mls @ 167 mls/hr IVPB Q12H [facility]; Protocol Last Admin: 07/04/18 09:54 Dose: 167 mls/hr Cefazolin Sodium (Ancef 1gm In Ns) 1 gm in 100 mls @ 100 mls/hr IVPB Q8 [facility]; Protocol Stop: 07/12/18 22:01 Last Admin: 07/04/18 06:32 Dose: 100 mls/hr Ibuprofen (Motrin Tab) 400 mg PO Q4H PRN PRN Reason: Pain, severe (8-10) Last Admin: 07/04/18 03:56 Dose: 400 mg Insulin Human Lispro (Humalog Med) 0 units SC ACHS [facility]; Protocol Last Admin: 07/04/18 08:59 Dose: Not Given Losartan Potassium (Cozaar) 50 mg PO DAILY [facility] Last Admin: 07/03/18 10:53 Dose: 50 mg Oxycodone/Acetaminophen (Percocet 5/325 Mg Tab) 1 tab PO Q4H PRN PRN Reason: Pain, moderate (4-7) Stop: 07/06/18 08:30 Oxycodone/Acetaminophen (Percocet 5/325 Mg Tab) 2 tab PO Q4H PRN PRN Reason: Pain, severe (8-10) Stop: 07/06/18 08:30 Pantoprazole Sodium (Protonix Ec Tab) 40 mg PO 0600 [facility] Last Admin: 07/04/18 06:32 Dose: 40 mg Tramadol HCl (Ultram) 50 mg PO HS PRN PRN Reason: Pain, severe (8-10) Last Admin: 07/04/18 00:26 Dose: 50 mg Vitamin A (Vitamin A & D Oint Ud Foilpak) 1 ea TOP BID [facility] Last Admin: 07/04/18 09:54 Dose: 1 ea Zinc Sulfate (Zinc Sulfate 220 Mg Cap) 220 mg PO DAILY [facility] Last Admin: 07/03/18 10:55 Dose: 220 mg - Labs Labs: 07/04/18 07:30 07/04/18 07:30 PT 12.4 SECONDS (9.4-12.5) 06/29/18 17:10 INR 1.12 06/29/18 17:10 APTT 34.1 Seconds (26.9-38.3) 06/29/18 17:10 Attending/Attestation - Attestation I have personally seen and examined this patient.: Yes I have fully participated in the care of the patient.: Yes I have reviewed all pertinent clinical information, including history, physical exam and plan: Yes
[2018-07-01] MEDS: Cholecalciferol 1,000 INTLU TAB PO SCH (09:31)
[2018-07-01] MEDS: Vitamins A & D Oint UD Foilpak TOP SCH ×2 (09:32→17:41)
--- NOTE | 2018-07-01 09:57 | CP.PCM.PN ---
<Ozzy Hoang - Last Filed: 07/01/18 09:51> Subjective - Date & Time of Evaluation Date of Evaluation: 07/01/18 Time of Evaluation: 09:51 - Subjective Subjective: PGY-1 Medicine Progress Note for Dr. Rizvi Patient was seen and examined at bedside. No acute events overnight. Patient denies any fevers, chest pain, shortness of breath, abdominal pain, nausea, vomiting, constipation, diarrhea, or urinary symptoms. Objective - Vital Signs/Intake and Output Vital Signs (last 24 hours): Temp Pulse Resp BP Pulse Ox 98.0 F 67 19 136/50 L 95 06/30/18 22:00 06/30/18 22:00 06/30/18 22:00 06/30/18 22:00 06/30/18 22:00 Intake and Output: 07/01/18 07/01/18 06:59 18:59 Intake Total 1280 Output Total 200 Balance 1080 - Medications Medications: Current Medications Allopurinol (Zyloprim) 100 mg PO DAILY [facility] Last Admin: 07/01/18 09:32 Dose: 100 mg Amlodipine Besylate (Norvasc) 5 mg PO DAILY [facility] Last Admin: 07/01/18 09:32 Dose: 5 mg Ascorbic Acid (Vitamin C 500 Mg Tab) 500 mg PO DAILY [facility] Last Admin: 07/01/18 09:32 Dose: 500 mg Aspirin (Aspirin Chewable) 81 mg PO DAILY [facility] Last Admin: 07/01/18 09:32 Dose: 81 mg Atorvastatin Calcium (Lipitor) 40 mg PO HS [facility] Last Admin: 06/30/18 21:18 Dose: 40 mg Cholecalciferol (Vitamin D) 2,000 intlu PO DAILY [facility] Last Admin: 07/01/18 09:31 Dose: 2,000 intlu Gabapentin (Neurontin) 100 mg PO BID [facility]; Protocol Last Admin: 07/01/18 09:31 Dose: 100 mg Heparin Sodium (Porcine) (Heparin) 5,000 units SC Q8 [facility]; Protocol Last Admin: 07/01/18 05:59 Dose: 5,000 units Ibuprofen (Motrin Tab) 400 mg PO Q6H PRN PRN Reason: Pain, severe (8-10) Last Admin: 07/01/18 03:15 Dose: 400 mg Insulin Human Lispro (Humalog Med) 0 units SC ACHS [facility]; Protocol Last Admin: 07/01/18 07:39 Dose: Not Given Losartan Potassium (Cozaar) 50 mg PO DAILY [facility] Last Admin: 07/01/18 09:32 Dose: 50 mg Pantoprazole Sodium (Protonix Ec Tab) 40 mg PO 0600 [facility] Last Admin: 07/01/18 06:00 Dose: 40 mg Tramadol HCl (Ultram) 50 mg PO DAILY PRN PRN Reason: Pain, severe (8-10) Last Admin: 06/30/18 11:25 Dose: 50 mg Vitamin A (Vitamin A & D Oint Ud Foilpak) 1 ea TOP BID [facility] Last Admin: 07/01/18 09:32 Dose: Not Given Zinc Sulfate (Zinc Sulfate 220 Mg Cap) 220 mg PO DAILY [facility] Last Admin: 07/01/18 09:31 Dose: 220 mg - Labs Labs: 06/30/18 06:20 06/30/18 06:20 PT 12.4 SECONDS (9.4-12.5) 06/29/18 17:10 INR 1.12 06/29/18 17:10 APTT 34.1 Seconds (26.9-38.3) 06/29/18 17:10 - Additional Findings Additional findings: - Constitutional Appears: Well, Non-toxic, No Acute Distress - Head Exam Head Exam: ATRAUMATIC, NORMAL INSPECTION, NORMOCEPHALIC - Eye Exam Eye Exam: EOMI, PERRL - Respiratory Exam Respiratory Exam: Clear to Ausculation Bilateral, NORMAL BREATHING PATTERN - Cardiovascular Exam Cardiovascular Exam: REGULAR RHYTHM, RRR - GI/Abdominal Exam GI & Abdominal Exam: Soft, Normal Bowel Sounds. absent: Tenderness - Extremities Exam Extremities Exam: Full ROM - Neurological Exam Neurological Exam: Alert, Awake, CN II-XII Intact, Oriented x3 - Psychiatric Exam Psychiatric exam: Normal Affect, Normal Mood - Skin Additional comments: Right foot wound extending above ankle with kim friable tissue and yellow discharge. Assessment and Plan - Assessment and Plan (Free Text) Assessment: Patient is a 42 year old homeless female with a PMH of DM2, morbid obesity, HTN, HLD, chronic venous ulcers, non healing right griffin wound, fibroid uterus, and peripheral neuropathy, admitted for chronic right foot wound. Plan for debriedment on 07/03. Plan: Right lower extremity non-healing ulcer - Plan for debridement on 07/[address] Salmeron - Cardio clearance pending, Dr. Madsen consulted - Tibia/fibula Xray unremarkable - Afebrile, no leukocytosis - Wound cultures: pending - Blood cultures: no growth to date - Vitamin A, C, D and Zinc - Tramadol PRN and ibuprofen PRN for pain. - Clean wound with saline, xeroform and DSD as per podiatry. - ID, Dr. Kaiser, consulted - Podiatry, Dr. Salmeron, consulted Diabetes mellitus type II - HgbA1c: 7.6 - ISS medium dose - Accuchecks ACHS Hypertension - Continue with home Norvasc 5mg PO QD and Losartan 50mg PO QD Diabetic Peripheral neuropathy - Continue with home Gabapentin 100mg PO BID Hyperlipidemia - Continue with home Lipitor 40mg HS History of gout - Continue with home Allopurinol 100mg PO QD GI prophylaxis: Protonix DVT prophylaxis: Heparin 5000 units SC Q8 Patient seen and plan discussed with attending, Dr. Rizvi. Ozzy Hoang, PGY-1 <Supriya Rizvi - Last Filed: 07/01/18 11:42> Objective - Vital Signs/Intake and Output Vital Signs (last 24 hours): Temp Pulse Resp BP Pulse Ox 98.0 F 67 19 136/50 L 95 06/30/18 22:00 06/30/18 22:00 06/30/18 22:00 06/30/18 22:00 06/30/18 22:00 Intake and Output: 07/01/18 07/01/18 06:59 18:59 Intake Total 1280 Output Total 200 Balance 1080 - Medications Medications: Current Medications Allopurinol (Zyloprim) 100 mg PO DAILY [facility] Last Admin: 07/01/18 09:32 Dose: 100 mg Amlodipine Besylate (Norvasc) 5 mg PO DAILY [facility] Last Admin: 07/01/18 09:32 Dose: 5 mg Ascorbic Acid (Vitamin C 500 Mg Tab) 500 mg PO DAILY [facility] Last Admin: 07/01/18 09:32 Dose: 500 mg Aspirin (Aspirin Chewable) 81 mg PO DAILY [facility] Last Admin: 07/01/18 09:32 Dose: 81 mg Atorvastatin Calcium (Lipitor) 40 mg PO HS [facility] Last Admin: 06/30/18 21:18 Dose: 40 mg Cholecalciferol (Vitamin D) 2,000 intlu PO DAILY [facility] Last Admin: 07/01/18 09:31 Dose: 2,000 intlu Gabapentin (Neurontin) 100 mg PO BID [facility]; Protocol Last Admin: 07/01/18 09:31 Dose: 100 mg Heparin Sodium (Porcine) (Heparin) 5,000 units SC Q8 [facility]; Protocol Last Admin: 07/01/18 05:59 Dose: 5,000 units Ibuprofen (Motrin Tab) 400 mg PO Q6H PRN PRN Reason: Pain, severe (8-10) Last Admin: 07/01/18 03:15 Dose: 400 mg Insulin Human Lispro (Humalog Med) 0 units SC ACHS [facility]; Protocol Last Admin: 07/01/18 07:39 Dose: Not Given Losartan Potassium (Cozaar) 50 mg PO DAILY [facility] Last Admin: 07/01/18 09:32 Dose: 50 mg Pantoprazole Sodium (Protonix Ec Tab) 40 mg PO 0600 [facility] Last Admin: 07/01/18 06:00 Dose: 40 mg Tramadol HCl (Ultram) 50 mg PO DAILY PRN PRN Reason: Pain, severe (8-10) Last Admin: 06/30/18 11:25 Dose: 50 mg Vitamin A (Vitamin A & D Oint Ud Foilpak) 1 ea TOP BID [facility] Last Admin: 07/01/18 09:32 Dose: Not Given Zinc Sulfate (Zinc Sulfate 220 Mg Cap) 220 mg PO DAILY [facility] Last Admin: 07/01/18 09:31 Dose: 220 mg - Labs Labs: 06/30/18 06:20 06/30/18 06:20 PT 12.4 SECONDS (9.4-12.5) 06/29/18 17:10 INR 1.12 06/29/18 17:10 APTT 34.1 Seconds (26.9-38.3) 06/29/18 17:10 Attending/Attestation - Attestation I have personally seen and examined this patient.: Yes I have fully participated in the care of the patient.: Yes I have reviewed all pertinent clinical information, including history, physical exam and plan: Yes Notes (Text): 07/01/18 11:39 Medical record note made by the resident after discussion with my direction and input after the patient was personally seen and examined by me. I have reviewed the chart and agree that the record accurately reflects by personal performance of the history, physical exam, data review, and medical decision-making, in the course for the patient. I have also personally directed the plan of care. 42 year old homeless female with a PMH of DM2, morbid obesity, HTN, HLD, chronic venous ulcers, non healing right griffin wound, fibroid uterus, and peripheral neuropathy, admitted for chronic right foot wound infection. Patient is afebrile, wound cultures and blood cultures are negative.CRP was only mildly elevated IV antibiotics has been discontinued by ID. Patient is scheduled for wound debridement by Podiatry on Tuesday07/03/18 Management plan was discussed in detail with patient. Education was provided. 07/01/18 11:41
--- NOTE | 2018-07-01 11:00 | CP.PCM.CON ---
History of Present Illness - History of Present Illness History of Present Illness: Awake, alert, no distress Reason for consultation: Cardiac evaluation and pre-op clearance for possible leg wound debridement Brief history of present illness: A 42 year old morbidly obese female who was sent to the ER by Dr. Salmeron due to infected right anterior griffin wound ulcers. History of diabetes, hypertension, hyperlipidemia, left eye cyst drainage, chronic venous ulcers, non healing right griffin wound. The non healing right griffin wound has been present for the past 6 months but recently worsened thus sent to [facility] ER. Denies chest pain or shortness of breath. Seen and examined by me and Dr. Madsen Review of Systems - Review of Systems All systems: reviewed and no additional remarkable complaints except Review of Systems: as per HPI Past Patient History - Past Medical History & Family History Past Medical History?: Yes - Past Social History Smoking Status: Never Smoked - CARDIAC Hx Cardiac Disorders: Yes Hx Hypertension: Yes - PULMONARY Hx Respiratory Disorders: No - NEUROLOGICAL Hx Neurological Disorder: No - HEENT Hx HEENT Problems: No - RENAL Hx Chronic Kidney Disease: No - ENDOCRINE/METABOLIC Hx Endocrine Disorders: Yes Hx Diabetes Mellitus Type 2: Yes - HEMATOLOGICAL/ONCOLOGICAL Hx Blood Disorders: Yes Hx Anemia: Yes Hx Blood Transfusions: No - INTEGUMENTARY Hx Dermatological Problems: No - MUSCULOSKELETAL/RHEUMATOLOGICAL Hx Musculoskeletal Disorders: No - GASTROINTESTINAL Hx Gastrointestinal Disorders: Yes Hx Gastroesophageal Reflux: Yes Other/Comment: fibroid cyst - GENITOURINARY/GYNECOLOGICAL Hx Genitourinary Disorders: No - PSYCHIATRIC Hx Psychophysiologic Disorder: No Hx Substance Use: No - SURGICAL HISTORY Hx Arthroscopy: Yes (left knee) Hx Orthopedic Surgery: Yes Other/Comment: bilateral knee surgery, bilateral upper eyelid surgery - ANESTHESIA Hx Anesthesia: Yes Hx Anesthesia Reactions: No Hx Malignant Hyperthermia: No Meds Allergies/Adverse Reactions: Allergies Allergy/AdvReac Type Severity Reaction Status Date / Time No Known Allergies Allergy Verified 06/29/18 16:13 - Medications Medications: Current Medications Allopurinol (Zyloprim) 100 mg PO DAILY [facility] Last Admin: 07/01/18 09:32 Dose: 100 mg Amlodipine Besylate (Norvasc) 5 mg PO DAILY [facility] Last Admin: 07/01/18 09:32 Dose: 5 mg Ascorbic Acid (Vitamin C 500 Mg Tab) 500 mg PO DAILY [facility] Last Admin: 07/01/18 09:32 Dose: 500 mg Aspirin (Aspirin Chewable) 81 mg PO DAILY [facility] Last Admin: 07/01/18 09:32 Dose: 81 mg Atorvastatin Calcium (Lipitor) 40 mg PO HS [facility] Last Admin: 06/30/18 21:18 Dose: 40 mg Cholecalciferol (Vitamin D) 2,000 intlu PO DAILY [facility] Last Admin: 07/01/18 09:31 Dose: 2,000 intlu Gabapentin (Neurontin) 100 mg PO BID [facility]; Protocol Last Admin: 07/01/18 09:31 Dose: 100 mg Heparin Sodium (Porcine) (Heparin) 5,000 units SC Q8 [facility]; Protocol Last Admin: 07/01/18 05:59 Dose: 5,000 units Ibuprofen (Motrin Tab) 400 mg PO Q6H PRN PRN Reason: Pain, severe (8-10) Last Admin: 07/01/18 03:15 Dose: 400 mg Insulin Human Lispro (Humalog Med) 0 units SC ACHS [facility]; Protocol Last Admin: 07/01/18 07:39 Dose: Not Given Losartan Potassium (Cozaar) 50 mg PO DAILY [facility] Last Admin: 07/01/18 09:32 Dose: 50 mg Pantoprazole Sodium (Protonix Ec Tab) 40 mg PO 0600 [facility] Last Admin: 07/01/18 06:00 Dose: 40 mg Tramadol HCl (Ultram) 50 mg PO DAILY PRN PRN Reason: Pain, severe (8-10) Last Admin: 06/30/18 11:25 Dose: 50 mg Vitamin A (Vitamin A & D Oint Ud Foilpak) 1 ea TOP BID [facility] Last Admin: 07/01/18 09:32 Dose: Not Given Zinc Sulfate (Zinc Sulfate 220 Mg Cap) 220 mg PO DAILY [facility] Last Admin: 07/01/18 09:31 Dose: 220 mg Physical Exam - Constitutional Appears: Non-toxic, No Acute Distress - Eye Exam Eye Exam: Normal appearance Pupil Exam: NORMAL ACCOMODATION - ENT Exam ENT Exam: Mucous Membranes Moist, Normal Exam - Respiratory Exam Respiratory Exam: Clear to Auscultation Bilateral, NORMAL BREATHING PATTERN - Cardiovascular Exam Cardiovascular Exam: +S1, +S2 - GI/Abdominal Exam GI & Abdominal Exam: Normal Bowel Sounds, Soft - Extremities Exam Additional comments: bilateral lower extremities with flaco wrapped - Neurological Exam Neurological exam: Alert, Oriented x3 - Psychiatric Exam Psychiatric exam: Normal Affect, Normal Mood - Skin Skin Exam: Dry, Normal Color, Warm Results - Vital Signs Recent Vital Signs: Last Vital Signs Temp 98.0 F 06/30/18 22:00 Pulse 67 06/30/18 22:00 Resp 19 06/30/18 22:00 BP 136/50 L 06/30/18 22:00 Pulse Ox 95 06/30/18 22:00 - Labs Result Diagrams: 06/30/18 06:20 06/30/18 06:20 Labs: Laboratory Results - last 24 hr 06/29/18 06/29/18 06/29/18 18:09 19:00 19:30 POC Glucose (mg/dL) Hemoglobin A1c 7.6 H C-Reactive Protein 13.00 H HIV 1&2 Ag/Ab, 4th Gen Nonreactive 06/30/18 06/30/18 06/30/18 11:51 16:30 20:59 POC Glucose (mg/dL) 74 120 H 124 H Hemoglobin A1c C-Reactive Protein HIV 1&2 Ag/Ab, 4th Gen Assessment & Plan - Assessment and Plan (Free Text) Assessment: A 42 year old morbidly obese, BMI 79.9, female who was sent to the ER by Dr. Salmeron due to infected right anterior griffin wound ulcers. History of diabetes, hypertension, hyperlipidemia, left eye cyst drainage, peripheral neuropathy,fibroid uterus, chronic venous ulcers, non healing right griffin wound. The non healing right griffin wound has been present for the past 6 months but recently worsened thus sent to [facility] ER. Denies chest pain or shortness of breath. Cardiac consult was called to clear patient for right ulcer wound debridement on Tuesday. Denies chest pain or shortness of breath, due to co-morbidities and BMI, will order Echo to assess LV function. Have anesthesia evaluate patient. Have OR staff evaluate patient due to weight concern if able to accomodate OR table. No previous cardiac work up done at [facility]. Plan: No distress, denies chest pain or shortness of breath For Echo to assess LV function Blood pressure controlled Heart rate controlled On Norvasc 5 mg daily,ASA 81 mg daily,Lipitor 40 mg daily, Heparin SQ 5000 units every 8 hours, Cozaar 50 mg daily Continue current treatment Continue current medications TSH and Hgb A1C Further recommendations during hospital course Awaiting echo result Will follow up Plan and treatment discussed with Dr. Madsen Thank you Dr. Rangasamy for the opportunity of taking care of Nikki Larry - Date & Time Date: 07/01/18 Time: 07:00
--- NOTE | 2018-07-01 11:10 | PN ---
DATE: 07/01/2018 SUBJECTIVE: The patient is in bed, in no acute distress, nontoxic. PHYSICAL EXAMINATION: VITAL SIGNS: Temperature is 98, blood pressure is 130/60, respiratory rate of 18, heart rate of 67. HEENT: Unremarkable. NECK: Supple. LUNGS: Have decreased breath sounds. HEART: Normal S1, S2. ABDOMEN: Soft, nontender. LABORATORY DATA: White count of 5.9, hemoglobin of 11, BUN of 14, creatinine 0.7. HIV is negative. Microbiology is negative. ASSESSMENT AND PLAN: This is a 42-year-old female with supermorbid obesity, body mass index of 76, chronic right anterior griffin ulcer, right lower extremity diabetic nonhealing ulcer with no systemic disease, evidence of systemic infection, currently off of antibiotics. Dr. Salmeron has planned to take the patient for a biopsy on Tuesday, would recommend routine Gram stain and cultures and special stains, AFB stains and fungal stains and cultures for AFB and fungal cultures and we will recommend special stains and cultures and pathology. Currently off of antibiotics. Awaiting for procedure on Tuesday. Davion Kaiser MD
--- NOTE | 2018-07-01 16:23 | CARD ---
APPROVED REPORT Date of service: 07/01/2018 EXAM: Two-dimensional and M-mode echocardiogram with Doppler and color Doppler. INDICATION PRE-OP- OBESE 2D DIMENSIONS Left Atrium (2D)3.6 (1.6-4.0cm)IVSd0.9 (0.7-1.1cm) LVDd4.1 (3.9-5.9cm)PWd1.3 (0.7-1.1cm) LVDs2.9 (2.5-4.0cm)FS (%) 29.3 % LVEF (%)56.6 (>50%) M-Mode DIMENSIONS Aortic Root2.40 (2.2-3.7cm)Aortic Cusp Exc.1.30 (1.5-2.0cm) Aortic Valve AoV Peak Pibymses434.0cm/Cynthia Peak GR.13mmHg Mitral Valve MV E Zwnwvhnh144.0cm/sMV A Wxjsibuf74.3cm/sE/A ratio1.3 TDI E/Lateral E'0.0E/Medial E'0.0 LEFT VENTRICLE The left ventricle is normal size. LV Septum shows Mild Hypertrophy. Normal LV Systolic Function. Ej.Fr: 57%. RIGHT VENTRICLE The right ventricle is normal size. The right ventricular systolic function is normal. ATRIA The left atrium size is normal. The right atrium size is normal. AORTIC VALVE Not Well Seen. Parts of Aortic Valve seen. Looks Normal. MITRAL VALVE The mitral valve is normal in structure. Mitral regurgitation is trace. In some views Mitral Valve shows Mild Degree of Prolapse. TRICUSPID VALVE Tricuspid Valve Leaflets not Well Seen. There is trace tricuspid regurgitation. PERICARDIAL EFFUSION There is no pericardial effusion. <Conclusion> The left ventricle is normal size. LV Septum shows Mild Hypertrophy. Normal LV Systolic Function. Ej.Fr: 57%. The right ventricle is normal size. The right ventricular systolic function is normal. The left atrium size is normal. The right atrium size is normal. Aortic Valve Not Well Seen. Parts of Aortic Valve seen. Looks Normal. The mitral valve is normal in structure.In some Views Mitral Valve Shows Mild Degree of Prolapse. Mitral regurgitation is trace. Tricuspid Valve Leaflets not Well Seen. There is trace tricuspid regurgitation. There is no pericardial effusion. Due to Patients Body Habitus Good Quality Echoes Could Not Be Recorded.
[2018-07-02] MEDS: Pantoprazole 40 mg EC Tab PO SCH (06:11)
[2018-07-02 07:34] LABS: BASO # 0.01 K/mm3 (0.0-2.0); BASO % 0.2 % (0.0-3.0); EOS # 0.2 (0.0-0.7); EOS % 3.6 % (1.5-5.0); HEMOGLOBIN 11.4 g/dL (12.0-16.0); LYMPH # 1.7 (1.2-3.4); LYMPH % 26.3 % (22.0-35.0); MEAN CELL VOLUME 84.3 fl (80.0-105.0); MEAN CORPUSCULAR HEMOGLOBIN 25.6 pg (25.0-35.0); MEAN CORPUSCULAR HGB CONC 30.3 g/dl (31.0-37.0); MEAN PLATELET VOLUME 10.3 fl (7.0-11.0); MONO # 0.5 (0.1-0.6); MONO % 8.4 % (1.0-6.0); RBC 4.46 10^6/uL (3.5-6.1); RED CELL DISTRIBUTION WIDTH 17.2 % (11.5-14.5); WHITE BLOOD COUNT 6.3 10^3/uL (4.5-11.0)
[2018-07-02 07:44] LABS: ALBUMIN 3.9 g/dL (3.0-4.8); ALT/SGPT 11 U/L (7-56); AST/SGOT 19 U/L (14-36); BLOOD UREA NITROGEN 13 mg/dL (7-21); CALCIUM 9.9 mg/dL (8.4-10.5); GFR NON-AFRICAN AMERICAN > 60; HDL CHOLESTEROL 24 mg/dL (29-60)
[2018-07-02 07:55] LABS: LDL CHOLESTEROL 86 mg/dL (0-129)
[2018-07-02] MEDS: Cholecalciferol 1,000 INTLU TAB PO SCH (10:05)
[2018-07-02] MEDS: Insulin Lispro (humaLOG) MEDIUM Coverage SC SCH ×4 (10:06→22:28)
--- NOTE | 2018-07-02 10:53 | CP.PCM.PN ---
Subjective - Date & Time of Evaluation Date of Evaluation: 07/02/18 Time of Evaluation: 07:15 - Subjective Subjective: Awake, alert, no distress Reason for consultation and follow up: Cardiac evaluation and pre-op clearance for possible leg wound debridement, History of diabetes, hypertension, hyperlipidemia, left eye cyst drainage, chronic venous ulcers, non healing right griffin wound. Seen and examined by me and Dr. Madsen Objective - Vital Signs/Intake and Output Vital Signs (last 24 hours): Temp Pulse Resp BP Pulse Ox 98.6 F 90 20 146/82 95 07/02/18 06:00 07/02/18 10:06 07/02/18 06:00 07/02/18 10:06 07/02/18 06:00 - Medications Medications: Current Medications Allopurinol (Zyloprim) 100 mg PO DAILY [facility] Last Admin: 07/02/18 10:05 Dose: 100 mg Amlodipine Besylate (Norvasc) 5 mg PO DAILY [facility] Last Admin: 07/02/18 10:06 Dose: 5 mg Ascorbic Acid (Vitamin C 500 Mg Tab) 500 mg PO DAILY [facility] Last Admin: 07/02/18 10:06 Dose: 500 mg Aspirin (Aspirin Chewable) 81 mg PO DAILY [facility] Last Admin: 07/02/18 10:06 Dose: 81 mg Atorvastatin Calcium (Lipitor) 40 mg PO HS [facility] Last Admin: 07/01/18 22:58 Dose: 40 mg Cholecalciferol (Vitamin D) 2,000 intlu PO DAILY [facility] Last Admin: 07/02/18 10:05 Dose: 2,000 intlu Gabapentin (Neurontin) 100 mg PO BID [facility]; Protocol Last Admin: 07/02/18 10:05 Dose: 100 mg Heparin Sodium (Porcine) (Heparin) 5,000 units SC Q8 [facility]; Protocol Last Admin: 07/02/18 06:11 Dose: 5,000 units Vancomycin HCl (Vancomycin 1gm) 1 gm in 250 mls @ 167 mls/hr IVPB Q12H [facility]; Protocol Ibuprofen (Motrin Tab) 400 mg PO Q6H PRN PRN Reason: Pain, severe (8-10) Last Admin: 07/01/18 12:20 Dose: 400 mg Insulin Human Lispro (Humalog Med) 0 units SC ACHS [facility]; Protocol Last Admin: 07/02/18 10:06 Dose: Not Given Losartan Potassium (Cozaar) 50 mg PO DAILY [facility] Last Admin: 07/02/18 10:06 Dose: 50 mg Pantoprazole Sodium (Protonix Ec Tab) 40 mg PO 0600 [facility] Last Admin: 07/02/18 06:11 Dose: 40 mg Tramadol HCl (Ultram) 50 mg PO DAILY PRN PRN Reason: Pain, severe (8-10) Last Admin: 06/30/18 11:25 Dose: 50 mg Vitamin A (Vitamin A & D Oint Ud Foilpak) 1 ea TOP BID [facility] Last Admin: 07/01/18 17:41 Dose: Not Given Zinc Sulfate (Zinc Sulfate 220 Mg Cap) 220 mg PO DAILY [facility] Last Admin: 07/02/18 10:05 Dose: 220 mg - Labs Labs: 07/02/18 07:00 07/02/18 07:00 PT 12.4 SECONDS (9.4-12.5) 06/29/18 17:10 INR 1.12 06/29/18 17:10 APTT 34.1 Seconds (26.9-38.3) 06/29/18 17:10 - Constitutional Appears: Non-toxic, No Acute Distress - Head Exam Head Exam: NORMAL INSPECTION, NORMOCEPHALIC - Eye Exam Eye Exam: Normal appearance Pupil Exam: NORMAL ACCOMODATION - ENT Exam ENT Exam: Mucous Membranes Moist, Normal Exam - Respiratory Exam Respiratory Exam: Decreased Breath Sounds, Clear to Ausculation Bilateral, NORMAL BREATHING PATTERN - Cardiovascular Exam Cardiovascular Exam: +S1, +S2 - GI/Abdominal Exam GI & Abdominal Exam: Soft, Normal Bowel Sounds - Extremities Exam Additional comments: bilateral flaco wrapped - Neurological Exam Neurological Exam: Alert, Awake, Oriented x3 - Psychiatric Exam Psychiatric exam: Normal Affect, Normal Mood - Skin Skin Exam: Dry, Normal Color, Warm Assessment and Plan - Assessment and Plan (Free Text) Assessment: A 42 year old morbidly obese, BMI 79.9, female who was sent to the ER by Dr. Salmeron due to infected right anterior griffin wound ulcers. History of diabetes, hypertension, hyperlipidemia, left eye cyst drainage, peripheral neuropathy,fibroid uterus, chronic venous ulcers, non healing right griffin wound. The non healing right griffin wound has been present for the past 6 months but recently worsened thus sent to [facility] ER. Denies chest pain or shortness of breath. Cardiac consult was called to clear patient for right ulcer wound debridement on Tuesday. Denies chest pain or shortness of breath, due to co-morbidities and BMI, will order Echo to assess LV function. Have anesthesia evaluate patient. Have OR staff evaluate patient due to weight concern if able to accomodate OR table. No previous cardiac work up done at [facility]. Echo done and showed LVEF 57%, mitral valve mild degree of prolapse, trace MR/TR. Cleared for surgery with moderate risk considering co-morbidities. No absolute contraindication. Denies chest pain or shortness of breath. Plan: Echo done yesterday and showed LVEF 57%, mitral valve mild degree of prolapse, trace MR/TR No distress, denies chest pain or shortness of breath Cleared for surgery with moderate risk For possible wound debridement tomorrow Blood pressure controlled Heart rate controlled Cardiac status stable On Norvasc 5 mg daily,ASA 81 mg daily,Lipitor 40 mg daily, Heparin SQ 5000 units every 8 hours, Cozaar 50 mg daily Continue current treatment Continue current medications Will follow up Plan and treatment discussed with Dr. Madsen
--- NOTE | 2018-07-02 11:49 | CP.PCM.PN ---
<Ozzy Hoang - Last Filed: 07/02/18 11:51> Subjective - Date & Time of Evaluation Date of Evaluation: 07/02/18 Time of Evaluation: 11:46 - Subjective Subjective: PGY-1 Medicine Progress Note for Dr. Rizvi Patient was seen and examined at bedside. No acute events overnight. Patient denies any fevers, chest pain, shortness of breath, abdominal pain, nausea, vomiting, constipation, diarrhea, or urinary symptoms. Patient is medically cleared to go to OR on 07/03. Objective - Vital Signs/Intake and Output Vital Signs (last 24 hours): Temp Pulse Resp BP Pulse Ox 98.6 F 90 20 146/82 95 07/02/18 06:00 07/02/18 10:06 07/02/18 06:00 07/02/18 10:06 07/02/18 06:00 - Medications Medications: Current Medications Allopurinol (Zyloprim) 100 mg PO DAILY [facility] Last Admin: 07/02/18 10:05 Dose: 100 mg Amlodipine Besylate (Norvasc) 5 mg PO DAILY [facility] Last Admin: 07/02/18 10:06 Dose: 5 mg Ascorbic Acid (Vitamin C 500 Mg Tab) 500 mg PO DAILY [facility] Last Admin: 07/02/18 10:06 Dose: 500 mg Aspirin (Aspirin Chewable) 81 mg PO DAILY [facility] Last Admin: 07/02/18 10:06 Dose: 81 mg Atorvastatin Calcium (Lipitor) 40 mg PO HS [facility] Last Admin: 07/01/18 22:58 Dose: 40 mg Cholecalciferol (Vitamin D) 2,000 intlu PO DAILY [facility] Last Admin: 07/02/18 10:05 Dose: 2,000 intlu Gabapentin (Neurontin) 100 mg PO BID [facility]; Protocol Last Admin: 07/02/18 10:05 Dose: 100 mg Heparin Sodium (Porcine) (Heparin) 5,000 units SC Q8 [facility]; Protocol Last Admin: 07/02/18 06:11 Dose: 5,000 units Vancomycin HCl (Vancomycin 1gm) 1 gm in 250 mls @ 167 mls/hr IVPB Q12H [facility]; Protocol Ibuprofen (Motrin Tab) 400 mg PO Q6H PRN PRN Reason: Pain, severe (8-10) Last Admin: 07/01/18 12:20 Dose: 400 mg Insulin Human Lispro (Humalog Med) 0 units SC ACHS [facility]; Protocol Last Admin: 07/02/18 10:06 Dose: Not Given Losartan Potassium (Cozaar) 50 mg PO DAILY [facility] Last Admin: 07/02/18 10:06 Dose: 50 mg Pantoprazole Sodium (Protonix Ec Tab) 40 mg PO 0600 [facility] Last Admin: 07/02/18 06:11 Dose: 40 mg Tramadol HCl (Ultram) 50 mg PO DAILY PRN PRN Reason: Pain, severe (8-10) Last Admin: 06/30/18 11:25 Dose: 50 mg Vitamin A (Vitamin A & D Oint Ud Foilpak) 1 ea TOP BID [facility] Last Admin: 07/01/18 17:41 Dose: Not Given Zinc Sulfate (Zinc Sulfate 220 Mg Cap) 220 mg PO DAILY [facility] Last Admin: 07/02/18 10:05 Dose: 220 mg - Labs Labs: 07/02/18 07:00 07/02/18 07:00 PT 12.4 SECONDS (9.4-12.5) 06/29/18 17:10 INR 1.12 06/29/18 17:10 APTT 34.1 Seconds (26.9-38.3) 06/29/18 17:10 - Additional Findings Additional findings: - Constitutional Appears: Well, Non-toxic, No Acute Distress - Head Exam Head Exam: ATRAUMATIC, NORMAL INSPECTION, NORMOCEPHALIC - Eye Exam Eye Exam: EOMI, PERRL - Respiratory Exam Respiratory Exam: Clear to Ausculation Bilateral, NORMAL BREATHING PATTERN - Cardiovascular Exam Cardiovascular Exam: REGULAR RHYTHM, RRR - GI/Abdominal Exam GI & Abdominal Exam: Soft, Normal Bowel Sounds. absent: Tenderness - Extremities Exam Extremities Exam: Full ROM - Neurological Exam Neurological Exam: Alert, Awake, CN II-XII Intact, Oriented x3 - Psychiatric Exam Psychiatric exam: Normal Affect, Normal Mood - Skin Additional comments: Dressing on right foot c/d/i Assessment and Plan - Assessment and Plan (Free Text) Assessment: Patient is a 42 year old homeless female with a PMH of DM2, morbid obesity, HTN, HLD, chronic venous ulcers, non healing right griffin wound, fibroid uterus, and peripheral neuropathy, admitted for chronic right foot wound. Plan for debriedment on 07/03. Plan: Right lower extremity non-healing ulcer - Plan for wound debridement on 07/[address] Salmeron - Cardio clearance pending, Dr. Madsen consulted- Cleared for surgery with moderate risk - Tibia/fibula Xray unremarkable - Afebrile, no leukocytosis - Wound cultures: S. aureus - Start Vancomycin 1g IV Q12 - Blood cultures: no growth to date - Vitamin A, C, D and Zinc - Tramadol PRN and ibuprofen PRN for pain. - Clean wound with saline, xeroform and DSD as per podiatry. - ID, Dr. Kaiser, consulted - Podiatry, Dr. Salmeron, consulted Diabetes mellitus type II - HgbA1c: 7.6 - ISS medium dose - Accuchecks ACHS Hypertension - Continue with home Norvasc 5mg PO QD and Losartan 50mg PO QD Diabetic Peripheral neuropathy - Gabapentin 300mg PO HS Hyperlipidemia - Continue with home Lipitor 40mg HS History of gout - Continue with home Allopurinol 100mg PO QD GI prophylaxis: Protonix DVT prophylaxis: Heparin 5000 units SC Q8 Patient seen and plan discussed with attending, Dr. Rizvi. Ozzy Hoang, PGY-1 <Supriya Rizvi - Last Filed: 07/02/18 12:12> Objective - Vital Signs/Intake and Output Vital Signs (last 24 hours): Temp Pulse Resp BP Pulse Ox 98.6 F 90 20 146/82 95 07/02/18 06:00 07/02/18 10:06 07/02/18 06:00 07/02/18 10:06 07/02/18 06:00 - Medications Medications: Current Medications Allopurinol (Zyloprim) 100 mg PO DAILY [facility] Amlodipine Besylate (Norvasc) 5 mg PO DAILY [facility] Last Admin: 07/02/18 10:06 Dose: 5 mg Ascorbic Acid (Vitamin C 500 Mg Tab) 500 mg PO DAILY [facility] Last Admin: 07/02/18 10:06 Dose: 500 mg Aspirin (Aspirin Chewable) 81 mg PO DAILY [facility] Last Admin: 07/02/18 10:06 Dose: 81 mg Atorvastatin Calcium (Lipitor) 40 mg PO HS [facility] Last Admin: 07/01/18 22:58 Dose: 40 mg Cholecalciferol (Vitamin D) 2,000 intlu PO DAILY [facility] Last Admin: 07/02/18 10:05 Dose: 2,000 intlu Gabapentin (Neurontin) 300 mg PO HS [facility]; Protocol Heparin Sodium (Porcine) (Heparin) 5,000 units SC Q8 [facility]; Protocol Last Admin: 07/02/18 06:11 Dose: 5,000 units Vancomycin HCl (Vancomycin 1gm) 1 gm in 250 mls @ 167 mls/hr IVPB Q12H [facility]; Protocol Ibuprofen (Motrin Tab) 400 mg PO Q6H PRN PRN Reason: Pain, severe (8-10) Last Admin: 07/01/18 12:20 Dose: 400 mg Insulin Human Lispro (Humalog Med) 0 units SC ACHS [facility]; Protocol Last Admin: 07/02/18 12:02 Dose: Not Given Losartan Potassium (Cozaar) 50 mg PO DAILY [facility] Last Admin: 07/02/18 10:06 Dose: 50 mg Pantoprazole Sodium (Protonix Ec Tab) 40 mg PO 0600 [facility] Last Admin: 07/02/18 06:11 Dose: 40 mg Tramadol HCl (Ultram) 50 mg PO HS PRN PRN Reason: Pain, severe (8-10) Vitamin A (Vitamin A & D Oint Ud Foilpak) 1 ea TOP BID [facility] Last Admin: 07/01/18 17:41 Dose: Not Given Zinc Sulfate (Zinc Sulfate 220 Mg Cap) 220 mg PO DAILY [facility] Last Admin: 07/02/18 10:05 Dose: 220 mg - Labs Labs: 07/02/18 07:00 07/02/18 07:00 PT 12.4 SECONDS (9.4-12.5) 06/29/18 17:10 INR 1.12 06/29/18 17:10 APTT 34.1 Seconds (26.9-38.3) 06/29/18 17:10 Attending/Attestation - Attestation I have personally seen and examined this patient.: Yes I have fully participated in the care of the patient.: Yes I have reviewed all pertinent clinical information, including history, physical exam and plan: Yes Notes (Text): 07/02/18 12:11 Patient was seen and examined with medical office supervisor. 42 year old homeless female with a PMH of DM2, morbid obesity, HTN, HLD, chronic venous ulcers, non-healing right griffin wound, fibroid uterus, and peripheral neuropathy was admitted for chronic right foot wound infection. Wound cultures growing gram positive Cocci.Patient is scheduled for wound debridement/biopsy by Podiatry on Tuesday07/03/18.
[2018-07-02] MEDS: Vancomycin 1gm in NS 250ml 1 GM/250 ML BAG IVPB SCH ×2 (12:40→23:12)
--- NOTE | 2018-07-02 13:44 | CP.PCM.PN ---
Subjective - Date & Time of Evaluation Date of Evaluation: 07/02/18 Time of Evaluation: 13:42 - Subjective Subjective: Podiatry Progress Note: Dr. Carlton 42 year old female patient, seen and evaluated for R anterior leg ulceration. Denies acute overnight events. Denies nausea/vomiting/fever/chest pain. Objective - Vital Signs/Intake and Output Vital Signs (last 24 hours): Temp Pulse Resp BP Pulse Ox 98.6 F 90 20 146/82 95 07/02/18 06:00 07/02/18 10:06 07/02/18 06:00 07/02/18 10:06 07/02/18 06:00 - Medications Medications: Current Medications Allopurinol (Zyloprim) 100 mg PO DAILY [facility] Amlodipine Besylate (Norvasc) 5 mg PO DAILY [facility] Last Admin: 07/02/18 10:06 Dose: 5 mg Ascorbic Acid (Vitamin C 500 Mg Tab) 500 mg PO DAILY [facility] Last Admin: 07/02/18 10:06 Dose: 500 mg Aspirin (Aspirin Chewable) 81 mg PO DAILY [facility] Last Admin: 07/02/18 10:06 Dose: 81 mg Atorvastatin Calcium (Lipitor) 40 mg PO HS [facility] Last Admin: 07/01/18 22:58 Dose: 40 mg Cholecalciferol (Vitamin D) 2,000 intlu PO DAILY [facility] Last Admin: 07/02/18 10:05 Dose: 2,000 intlu Gabapentin (Neurontin) 300 mg PO HS [facility]; Protocol Heparin Sodium (Porcine) (Heparin) 5,000 units SC Q8 [facility]; Protocol Last Admin: 07/02/18 06:11 Dose: 5,000 units Vancomycin HCl (Vancomycin 1gm) 1 gm in 250 mls @ 167 mls/hr IVPB Q12H [facility]; Protocol Ibuprofen (Motrin Tab) 400 mg PO Q6H PRN PRN Reason: Pain, severe (8-10) Last Admin: 07/01/18 12:20 Dose: 400 mg Insulin Human Lispro (Humalog Med) 0 units SC ACHS [facility]; Protocol Last Admin: 07/02/18 12:02 Dose: Not Given Losartan Potassium (Cozaar) 50 mg PO DAILY [facility] Last Admin: 07/02/18 10:06 Dose: 50 mg Pantoprazole Sodium (Protonix Ec Tab) 40 mg PO 0600 [facility] Last Admin: 07/02/18 06:11 Dose: 40 mg Tramadol HCl (Ultram) 50 mg PO HS PRN PRN Reason: Pain, severe (8-10) Vitamin A (Vitamin A & D Oint Ud Foilpak) 1 ea TOP BID [facility] Last Admin: 07/01/18 17:41 Dose: Not Given Zinc Sulfate (Zinc Sulfate 220 Mg Cap) 220 mg PO DAILY [facility] Last Admin: 07/02/18 10:05 Dose: 220 mg - Labs Labs: 07/02/18 07:00 07/02/18 07:00 PT 12.4 SECONDS (9.4-12.5) 06/29/18 17:10 INR 1.12 06/29/18 17:10 APTT 34.1 Seconds (26.9-38.3) 06/29/18 17:10 - Constitutional Appears: Well, Non-toxic, No Acute Distress - Head Exam Head Exam: ATRAUMATIC, NORMOCEPHALIC - Eye Exam Eye Exam: Normal appearance Pupil Exam: NORMAL ACCOMODATION - ENT Exam ENT Exam: Mucous Membranes Moist - Cardiovascular Exam Cardiovascular Exam: REGULAR RHYTHM - GI/Abdominal Exam GI & Abdominal Exam: Normal Bowel Sounds - Extremities Exam Additional comments: RLE focused exam Vasc: DP and PT pulses mildly palpable; cap refill <3 seconds; edema to lower extremity present secondary to lymphedema and obesity Ortho: pain upon palpation of the right leg wound Neuro: gross and protective sensation intact Derm: Ulceration appreciated to the anterior aspect of the R leg, measuring approximately 3 cm x 2.5 cm x .1 cm with 100% granular base. No erythema appreciated periwound. Mild serious drainage, no active purulence appreciated, no cellulitis - Neurological Exam Neurological Exam: Alert, Awake, Oriented x3 Assessment and Plan - Assessment and Plan (Free Text) Assessment: 42 year old female with R anterior leg ulceration Plan: Patient seen and evaluated with Dr. Carlton Afebrile, absent leukocytosis R tib/fib x-rays taken; no osseous involvement Wound culture taken; staph aureus Blood culture taken; no growth after 3 days Local wound care: ulceration cleansed with saline and dressed with xeroform and DSD Continue with IV abx per Dr. Kaiser Plan for surgery Tuesday at 7:30am for right leg wound debridement with biopsy of the woud with Dr. Salmeron Please medically optimize patient and provide medical/cardiac clearance; patient medically/cardiac clearance in chart. NPO ordered past midnight Heparin on hold Will continue to follow
--- NOTE | 2018-07-02 14:48 | PN ---
DATE: 07/02/2018 SUBJECTIVE: The patient is in bed in no acute distress, nontoxic. No fevers and chills. PHYSICAL EXAMINATION: VITAL SIGNS: Temperature is 98, blood pressure is 140/80, respiratory rate 20, heart rate of 90. HEENT: Unremarkable. NECK: Supple. LUNGS: Have decreased breath sounds. HEART: Normal S1, S2. ABDOMEN: Soft, nontender. LABORATORY EXAMINATION: Reveals the patient's white count of 6.3, hemoglobin of 11. Chemistries are noted. BUN of 13, creatinine of 0.5. Serology for HIV is negative and microbiology reveals the staph aureus from the leg which is sensitive staph aureus. Blood cultures are negative. X-RAYS: The right x-ray tibia, no evidence of osteo unremarkable. Case was discussed with Dr. Rizvi. ASSESSMENT AND PLAN: This is a 42-year-old female, super morbid obesity, BMI of 76, chronic right anterior griffin ulcer, right lower extremity diabetic nonhealing ulcer with no systemic evidence of infection although now it is growing a sensitive Staphylococcus aureus. We will hold off any antibiotics pending tomorrow's biopsy rule out underlying osteomyelitis and bone culture and this patient with super morbid obesity, BMI of almost 80. Currently off of antibiotics. We will check on the cultures were also recommend sending the bone for AFB smears and cultures and fungal smears and cultures in addition to routine Gram stain and cultures. We will follow with you. Davion Kaiser MD
[2018-07-02] MEDS: Vitamins A & D Oint UD Foilpak TOP SCH ×2 (19:44)
--- NOTE | 2018-07-02 22:41 | CARD ---
APPROVED REPORT Date of service: 07/02/2018 EKG Measurement Heart [id number] <Conclusion> Normal sinus rhythm Left posterior fascicular block Abnormal ECG
--- NOTE | 2018-07-03 01:41 | CP.PCM.PN ---
Subjective - Date & Time of Evaluation Date of Evaluation: 07/03/18 Time of Evaluation: 01:40 - Subjective Subjective: # 22 angiocath was inserted in left forearm. Patient has no complaints. Vital signs are stable. Objective - Vital Signs/Intake and Output Vital Signs (last 24 hours): Temp Pulse Resp BP Pulse Ox 98.1 F 90 22 146/82 96 07/02/18 14:00 07/02/18 14:00 07/02/18 14:00 07/02/18 10:06 07/02/18 14:00 - Medications Medications: Current Medications Allopurinol (Zyloprim) 100 mg PO DAILY [facility] Amlodipine Besylate (Norvasc) 5 mg PO DAILY [facility] Last Admin: 07/02/18 10:06 Dose: 5 mg Ascorbic Acid (Vitamin C 500 Mg Tab) 500 mg PO DAILY [facility] Last Admin: 07/02/18 10:06 Dose: 500 mg Aspirin (Aspirin Chewable) 81 mg PO DAILY [facility] Last Admin: 07/02/18 10:06 Dose: 81 mg Atorvastatin Calcium (Lipitor) 40 mg PO HS [facility] Last Admin: 07/02/18 23:11 Dose: 40 mg Cholecalciferol (Vitamin D) 2,000 intlu PO DAILY [facility] Last Admin: 07/02/18 10:05 Dose: 2,000 intlu Gabapentin (Neurontin) 300 mg PO HS [facility]; Protocol Last Admin: 07/02/18 23:12 Dose: 300 mg Heparin Sodium (Porcine) (Heparin) 5,000 units SC Q8 [facility]; Protocol Last Admin: 07/02/18 06:11 Dose: 5,000 units Vancomycin HCl (Vancomycin 1gm) 1 gm in 250 mls @ 167 mls/hr IVPB Q12H [facility]; Protocol Last Admin: 07/02/18 23:12 Dose: 167 mls/hr Ibuprofen (Motrin Tab) 400 mg PO Q6H PRN PRN Reason: Pain, severe (8-10) Last Admin: 07/02/18 14:44 Dose: 400 mg Insulin Human Lispro (Humalog Med) 0 units SC ACHS [facility]; Protocol Last Admin: 07/02/18 19:43 Dose: Not Given Losartan Potassium (Cozaar) 50 mg PO DAILY [facility] Last Admin: 07/02/18 10:06 Dose: 50 mg Pantoprazole Sodium (Protonix Ec Tab) 40 mg PO 0600 [facility] Last Admin: 07/02/18 06:11 Dose: 40 mg Tramadol HCl (Ultram) 50 mg PO HS PRN PRN Reason: Pain, severe (8-10) Vitamin A (Vitamin A & D Oint Ud Foilpak) 1 ea TOP BID [facility] Last Admin: 07/02/18 19:44 Dose: 1 ea Zinc Sulfate (Zinc Sulfate 220 Mg Cap) 220 mg PO DAILY [facility] Last Admin: 07/02/18 10:05 Dose: 220 mg - Labs Labs: 07/02/18 07:00 07/02/18 07:00 PT 12.4 SECONDS (9.4-12.5) 06/29/18 17:10 INR 1.12 06/29/18 17:10 APTT 34.1 Seconds (26.9-38.3) 06/29/18 17:10
[2018-07-03] MEDS: Pantoprazole 40 mg EC Tab PO SCH (05:21)
[2018-07-03] MEDS ORDERED: Lidocaine 1% Inj (20ml) ONE (07:23)
[2018-07-03] MEDS ORDERED: Bupivacaine 0.25% 50 ML INJ IJ ONE (07:23)
[2018-07-03] MEDS ORDERED: Lidocaine 2% Inj (20ml) ONE (07:23)
[2018-07-03] MEDS ORDERED: Gentamicin 80 mg in 0.9% NS 0 MG/0 ML BAG IVPB ONE (07:37)
[2018-07-03] MEDS ORDERED: Sodium Chloride 0.9% 1,000 ML IV SCH (08:00)
[2018-07-03] MEDS ORDERED: Propofol 10 mg/ml Inj (20 ML) ONE (08:01)
[2018-07-03] MEDS: Insulin Lispro (humaLOG) MEDIUM Coverage SC SCH ×3 (08:16→16:46)
[2018-07-03] MEDS ORDERED: Oxycodone/Acetaminophen 5/325 mg Tab PO PRN ×2 (08:29)
--- NOTE | 2018-07-03 08:29 | PCM.SURG1 ---
Surgeon's Initial Post Op Note - Surgeon's Notes Surgeon: Dr. Salmeron DPM Mechanical Expert: Dr. Marilou Ochoa PGY1 Type of Anesthesia: IV Sedation Pre-Operative Diagnosis: Right leg non-healing ulceration Operative Findings: See Dictation. I: pre-op: 10 cc of 2% lidocaine plain. M: None Post-Operative Diagnosis: Same Operation Performed: Right leg wound debridement with biopsy Specimen/Specimens Removed: None Estimated Blood Loss: EBL {In ML}: 2 Blood Products Given: N/A Drains Used: No Drains Post-Op Condition: Good Date of Surgery/Procedure: 07/03/18 Time of Surgery/Procedure: 08:29
[2018-07-03] MEDS ORDERED: Lactated Ringer's 1,000 ML IV SCH (08:30)
[2018-07-03] MEDS ORDERED: Morphine 2 mg/ml ISec IVP STA (09:04)
[2018-07-03] MEDS ORDERED: Morphine 4 mg/ml ISec IV ONE (09:07)
[2018-07-03] MEDS ORDERED: Morphine 4 mg/ml ISec ONE (09:10)
[2018-07-03 10:34] LABS: ALBUMIN 3.9 g/dL (3.0-4.8); ALT/SGPT 12 U/L (7-56); AST/SGOT 20 U/L (14-36); BLOOD UREA NITROGEN 13 mg/dL (7-21); CALCIUM 9.8 mg/dL (8.4-10.5); GFR NON-AFRICAN AMERICAN > 60
[2018-07-03 10:43] LABS: EOS # 0.2 (0.0-0.7); EOS % 3.4 % (1.5-5.0); HEMOGLOBIN 11.1 g/dL (12.0-16.0); LYMPH # 1.3 (1.2-3.4); LYMPH % 21.3 % (22.0-35.0); MEAN CELL VOLUME 84.4 fl (80.0-105.0); MEAN CORPUSCULAR HEMOGLOBIN 25.5 pg (25.0-35.0); MEAN CORPUSCULAR HGB CONC 30.2 g/dl (31.0-37.0); MEAN PLATELET VOLUME 10.2 fl (7.0-11.0); MONO # 0.6 (0.1-0.6); MONO % 9.3 % (1.0-6.0); RBC 4.35 10^6/uL (3.5-6.1); RED CELL DISTRIBUTION WIDTH 17.2 % (11.5-14.5); WHITE BLOOD COUNT 6.1 10^3/uL (4.5-11.0)
[2018-07-03] MEDS: Vancomycin 1gm in NS 250ml 1 GM/250 ML BAG IVPB SCH ×2 (10:54→22:17)
[2018-07-03] MEDS: Cholecalciferol 1,000 INTLU TAB PO SCH (10:54)
[2018-07-03] MEDS: Vitamins A & D Oint UD Foilpak TOP SCH ×2 (10:54→17:48)
--- NOTE | 2018-07-03 12:15 | CP.PCM.PN ---
<Tobi Nettles - Last Filed: 07/03/18 12:12> Subjective - Date & Time of Evaluation Date of Evaluation: 07/03/18 Time of Evaluation: 12:12 - Subjective Subjective: Medicine Progress Note for Dr. Tracy 42F seen and evaluated at bedside this morning. No acute events overnight. Patient scheduled for lower extremity debridement by podiatry today. Admits to mild tenderness/pain around the leg ulceration. Denies f/c, n/v/d, SOB, CP, or urinary symptoms. Objective - Vital Signs/Intake and Output Vital Signs (last 24 hours): Temp Pulse Resp BP Pulse Ox 98 F 97 H 12 145/82 95 07/03/18 09:07 07/03/18 09:07 07/03/18 09:07 07/03/18 09:07 07/03/18 09:07 Intake and Output: 07/03/18 07/03/18 06:59 18:59 Intake Total 0 Balance 0 - Medications Medications: Current Medications Acetaminophen (Tylenol 325mg Tab) 650 mg PO Q4H PRN PRN Reason: Pain, Mild (1-3) Allopurinol (Zyloprim) 100 mg PO DAILY [facility] Amlodipine Besylate (Norvasc) 5 mg PO DAILY [facility] Last Admin: 07/03/18 10:54 Dose: 5 mg Ascorbic Acid (Vitamin C 500 Mg Tab) 500 mg PO DAILY [facility] Last Admin: 07/03/18 10:54 Dose: 500 mg Aspirin (Aspirin Chewable) 81 mg PO DAILY [facility] Last Admin: 07/03/18 10:53 Dose: 81 mg Atorvastatin Calcium (Lipitor) 40 mg PO HS [facility] Last Admin: 07/02/18 23:11 Dose: 40 mg Cholecalciferol (Vitamin D) 2,000 intlu PO DAILY [facility] Last Admin: 07/03/18 10:54 Dose: 2,000 intlu Gabapentin (Neurontin) 300 mg PO HS [facility]; Protocol Last Admin: 07/02/18 23:12 Dose: 300 mg Heparin Sodium (Porcine) (Heparin) 5,000 units SC Q8 [facility]; Protocol Last Admin: 07/02/18 06:11 Dose: 5,000 units Vancomycin HCl (Vancomycin 1gm) 1 gm in 250 mls @ 167 mls/hr IVPB Q12H [facility]; Pr otocol Last Admin: 07/03/18 10:54 Dose: 167 mls/hr Ibuprofen (Motrin Tab) 400 mg PO Q6H PRN PRN Reason: Pain, severe (8-10) Last Admin: 07/03/18 10:57 Dose: 400 mg Insulin Human Lispro (Humalog Med) 0 units SC [facility]; Protocol Last Admin: 07/03/18 11:45 Dose: Not Given Losartan Potassium (Cozaar) 50 mg PO DAILY [facility] Last Admin: 07/03/18 10:53 Dose: 50 mg Oxycodone/Acetaminophen (Percocet 5/325 Mg Tab) 1 tab PO Q4H PRN PRN Reason: Pain, moderate (4-7) Stop: 07/06/18 08:30 Oxycodone/Acetaminophen (Percocet 5/325 Mg Tab) 2 tab PO Q4H PRN PRN Reason: Pain, severe (8-10) Stop: 07/06/18 08:30 Pantoprazole Sodium (Protonix Ec Tab) 40 mg PO 0600 [facility] Last Admin: 07/03/18 05:21 Dose: Not Given Tramadol HCl (Ultram) 50 mg PO HS PRN PRN Reason: Pain, severe (8-10) Vitamin A (Vitamin A & D Oint Ud Foilpak) 1 ea TOP BID [facility] Last Admin: 07/03/18 10:54 Dose: 1 ea Zinc Sulfate (Zinc Sulfate 220 Mg Cap) 220 mg PO DAILY [facility] Last Admin: 07/03/18 10:55 Dose: 220 mg - Labs Labs: 07/03/18 09:30 07/03/18 09:30 PT 12.4 SECONDS (9.4-12.5) 06/29/18 17:10 INR 1.12 06/29/18 17:10 APTT 34.1 Seconds (26.9-38.3) 06/29/18 17:10 - Constitutional Appears: Non-toxic, No Acute Distress - Head Exam Head Exam: ATRAUMATIC, NORMAL INSPECTION, NORMOCEPHALIC - Eye Exam Eye Exam: EOMI - ENT Exam ENT Exam: Mucous Membranes Moist - Respiratory Exam Respiratory Exam: NORMAL BREATHING PATTERN. absent: Respiratory Distress Additional comments: Using Incentive spirometer - Cardiovascular Exam Cardiovascular Exam: REGULAR RHYTHM. absent: Tachycardia - GI/Abdominal Exam GI & Abdominal Exam: Soft, Normal Bowel Sounds. absent: Tenderness - Extremities Exam Additional comments: Right lower extremity wrapped in ALBERTA bandage, c/d/i Palpable 2+ pulses bilaterally - Neurological Exam Neurological Exam: Alert, Awake, Oriented x3 - Psychiatric Exam Psychiatric exam: Normal Affect, Normal Mood Assessment and Plan - Assessment and Plan (Free Text) Assessment: 42F, PMH DM2, morbid obesity, HTN, HLD, chronic venous ulcers, non-healing right griffin wound, and peripheral neuropathy, admitted for chronic right lower extremity ulcerations debrided by podiatry on 07/03/18. Plan: Non-healing Chronic Right Lower Extremity Ulcer - Debridement with Podiatry today - F/u biopsy results from debridement - Wound cultures positive for s. aureus - F/u final blood culture results - Vancomycin - Infectious Disease consulted - Tramadol, Ibuprofen, Percocet for pain - Dressing changes per podiatry Diabetes Mellitus, Type 2 - ISS, medium - Hypoglycemic protocol - Accuchecks ACHS Hypertension - Continue Norvasc 5mg PO QD - Continue Cozaar 50mg PO QD - Continue ASA 81mg PO QD Peripheral Neuropathy - Continue Gabapentin 300mg PO HS Hyperlipidemia - Continue Lipitor 40mg PO HS Hx of Gout - Continue Allopurinol 100mg PO QD PPX GI: Protonix DVT: Heparin HHD Patient plan discussed with Dr. Demarcus Nettles PGY1 <Aminata Tracy - Last Filed: 07/03/18 12:38> Objective - Vital Signs/Intake and Output Vital Signs (last 24 hours): Temp Pulse Resp BP Pulse Ox 98 F 97 H 12 145/82 95 07/03/18 09:07 07/03/18 09:07 07/03/18 09:07 07/03/18 09:07 07/03/18 09:07 Intake and Output: 07/03/18 07/03/18 06:59 18:59 Intake Total 0 Balance 0 - Medications Medications: Current Medications Acetaminophen (Tylenol 325mg Tab) 650 mg PO Q4H PRN PRN Reason: Pain, Mild (1-3) Allopurinol (Zyloprim) 100 mg PO DAILY [facility] Amlodipine Besylate (Norvasc) 5 mg PO DAILY [facility] Last Admin: 07/03/18 10:54 Dose: 5 mg Ascorbic Acid (Vitamin C 500 Mg Tab) 500 mg PO DAILY [facility] Last Admin: 07/03/18 10:54 Dose: 500 mg Aspirin (Aspirin Chewable) 81 mg PO DAILY [facility] Last Admin: 07/03/18 10:53 Dose: 81 mg Atorvastatin Calcium (Lipitor) 40 mg PO HS [facility] Last Admin: 07/02/18 23:11 Dose: 40 mg Cholecalciferol (Vitamin D) 2,000 intlu PO DAILY [facility] Last Admin: 07/03/18 10:54 Dose: 2,000 intlu Gabapentin (Neurontin) 300 mg PO HS [facility]; Protocol Last Admin: 07/02/18 23:12 Dose: 300 mg Heparin Sodium (Porcine) (Heparin) 5,000 units SC Q8 [facility]; Protocol Last Admin: 07/02/18 06:11 Dose: 5,000 units Vancomycin HCl (Vancomycin 1gm) 1 gm in 250 mls @ 167 mls/hr IVPB Q12H [facility]; Protocol Last Admin: 07/03/18 10:54 Dose: 167 mls/hr Ibuprofen (Motrin Tab) 400 mg PO Q6H PRN PRN Reason: Pain, severe (8-10) Last Admin: 07/03/18 10:57 Dose: 400 mg Insulin Human Lispro (Humalog Med) 0 units SC [facility]; Protocol Last Admin: 07/03/18 11:45 Dose: Not Given Losartan Potassium (Cozaar) 50 mg PO DAILY [facility] Last Admin: 07/03/18 10:53 Dose: 50 mg Oxycodone/Acetaminophen (Percocet 5/325 Mg Tab) 1 tab PO Q4H PRN PRN Reason: Pain, moderate (4-7) Stop: 07/06/18 08:30 Oxycodone/Acetaminophen (Percocet 5/325 Mg Tab) 2 tab PO Q4H PRN PRN Reason: Pain, severe (8-10) Stop: 07/06/18 08:30 Pantoprazole Sodium (Protonix Ec Tab) 40 mg PO 0600 [facility] Last Admin: 07/03/18 05:21 Dose: Not Given Tramadol HCl (Ultram) 50 mg PO HS PRN PRN Reason: Pain, severe (8-10) Vitamin A (Vitamin A & D Oint Ud Foilpak) 1 ea TOP BID [facility] Last Admin: 07/03/18 10:54 Dose: 1 ea Zinc Sulfate (Zinc Sulfate 220 Mg Cap) 220 mg PO DAILY [facility] Last Admin: 07/03/18 10:55 Dose: 220 mg - Labs Labs: 07/03/18 09:30 07/03/18 09:30 PT 12.4 SECONDS (9.4-12.5) 06/29/18 17:10 INR 1.12 06/29/18 17:10 APTT 34.1 Seconds (26.9-38.3) 06/29/18 17:10 Attending/Attestation - Attestation I have personally seen and examined this patient.: Yes I have fully participated in the care of the patient.: Yes I have reviewed all pertinent clinical information, including history, physical exam and plan: Yes Notes (Text): 07/03/18 12:36 42 year old female with past medical history of diabetes, hypertension, and chronic venous ulcers who presented with chronic right lower extremity ulcerations / non healing right griffin wound. Continue with iv antibiotics as per ID. Wound culture is growing staph aureus. Continue with wound care as per podiatry. She is s/p debridement and biopsy this morning. Will follow up on results. Aminata Tracy MD Hospitalist.
--- NOTE | 2018-07-03 18:26 | PN ---
DATE: 07/03/2018 LOCATION: The patient is in room 578, bed 2. REASON FOR CONSULTATION: Hypertension, morbid obesity, open wound on the right lower leg, need cardiac evaluation for debridement and surgery on the wound on the right leg. SUBJECTIVE: The patient is lying flat in bed without any chest pain, shortness of breath or palpitation. PHYSICAL EXAMINATION: VITAL SIGNS: Blood pressure 142/82, respiration 12, pulse 99, and temperature 98. Yesterday blood pressure was 125/71. HEENT: Head is normocephalic. Eyes; pupils normal. Conjunctiva normal. Nose and throat normal. NECK: JVP low. Carotid are equal. THORAX: AP diameter normal. LUNGS: Clear. CARDIOVASCULAR: S1 and S2. ABDOMEN: Soft. No tenderness. No organomegaly. Bowel sounds normal. EXTREMITIES: No clubbing. No cyanosis. LABORATORY DATA: WBC 6.1, hemoglobin 11.1, hematocrit 36.7, and platelet 215. Sodium 141, potassium 4.2, BUN 13, and creatinine 0.6. Random sugar 149. AST, ALT, bilirubin, total protein were normal. The patient had an echocardiogram that showed LV ejection fraction normal 57%. Mitral valve showed very mild degree of prolapse, trace mitral regurgitation, trace tricuspid regurgitation. DIAGNOSES: Open wound in the right lower leg, morbid obesity, hypertension, diabetes, hyperlipidemia. PLAN: The patient is cleared for debridement or wound surgery as moderate risk because of comorbidities and the patient is on medications aspirin 81 mg daily, losartan 50 mg daily, heparin 5000 units subcutaneus every 8 hours, Lipitor 40 mg daily. The patient is on ibuprofen for pain and gabapentin 300 mg p.o. at bedtime, amlodipine 5 mg daily, vancomycin 1 g intravenous every 12 hours, Zyloprim 100 mg p.o. daily. The patient is also advised to lose weight. We will continue follow with you. Supriya Madsen MD
--- NOTE | 2018-07-03 21:49 | PN ---
DATE: 07/03/2018 SUBJECTIVE: The patient is in bed, in no acute distress, nontoxic. PHYSICAL EXAMINATION: VITAL SIGNS: Temperature is 98, blood pressure is 140/80, respiratory rate 20, and heart rate of 99. HEENT: Unremarkable. NECK: Supple. LUNGS: Have decreased breath sounds. HEART: Normal S1 and S2. ABDOMEN: Soft. LABORATORY DATA: Reveals a white count of 6.1 and hemoglobin 11. BUN of 13 and creatinine of 0.6. HIV is negative. Microbiology reveals the patient's leg has sensitive Staph aureus. MEDICATIONS: Review of orders reveals the patient to be off of antibiotics. The patient is taken to the OR for debridement of the wound of the right leg with a biopsy. ASSESSMENT AND PLAN: This is 42-year-old female with super morbid obesity, BMI of 76. Right anterior griffin ulcer, right lower extremity diabetic nonhealing ulcer with sensitive Staph aureus. We will start empiric antibiotic with Ancef pending biopsy and OR culture results. Davion Kaiser MD
[2018-07-04] MEDS: Insulin Lispro (humaLOG) MEDIUM Coverage SC SCH ×5 (00:25→22:00)
[2018-07-04] MEDS: ceFAZolin 1 gm in NS 1 GM/100 ML BAG IVPB SCH ×4 (00:25→22:01)
[2018-07-04] MEDS: Pantoprazole 40 mg EC Tab PO SCH (06:32)
[2018-07-04 07:57] LABS: BASO # 0.01 K/mm3 (0.0-2.0); BASO % 0.1 % (0.0-3.0); EOS # 0.3 (0.0-0.7); EOS % 4.2 % (1.5-5.0); HEMOGLOBIN 11.2 g/dL (12.0-16.0); LYMPH # 2.1 (1.2-3.4); LYMPH % 28.4 % (22.0-35.0); MEAN CORPUSCULAR HEMOGLOBIN 25.4 pg (25.0-35.0); MEAN CORPUSCULAR HGB CONC 29.9 g/dl (31.0-37.0); MONO # 0.6 (0.1-0.6); MONO % 7.5 % (1.0-6.0); RBC 4.41 10^6/uL (3.5-6.1); RED CELL DISTRIBUTION WIDTH 17.4 % (11.5-14.5); WHITE BLOOD COUNT 7.3 10^3/uL (4.5-11.0)
[2018-07-04 08:10] LABS: ALT/SGPT 16 U/L (7-56); AST/SGOT 20 U/L (14-36); BLOOD UREA NITROGEN 14 mg/dL (7-21); CALCIUM 9.7 mg/dL (8.4-10.5); GFR NON-AFRICAN AMERICAN > 60
--- NOTE | 2018-07-04 08:46 | OP ---
PROCEDURE DATE: 07/03/2018 PREOPERATIVE DIAGNOSIS: Right anterior leg ulceration, nonhealing. POSTOPERATIVE DIAGNOSIS: Right anterior leg ulceration, nonhealing. NAME OF PROCEDURE: Right leg wound debridement with removal of all nonviable bone and soft tissue with biopsy. SURGEON: Ayde Salmeron DPM UNDERCOAT SPRAYER: Dr. Marilou Caruso, PGY-1 ANESTHESIA: IV sedation with local. INDICATIONS: The patient is a 42-year-old female with the above diagnosis. The patient has exhausted all conservative treatments at this time and now requires surgical intervention. The patient signed the consent after careful explanation of risks, benefits, complications, and alternatives for the surgical procedure. No guarantees were given nor implied. N.p.o. status was confirmed prior to taking the patient to the operating room. PREPARATION: The patient was brought into the operating room and placed in a supine position. Time-out was performed for identification of the correct patient and procedure. After induction of IV sedation, the right lower extremity was then prepped and draped in a normal sterile manner and the procedure began. No tourniquet was used during the procedure. Then, 10 mL of 2% lidocaine plain was injected in a local block fashion to the ulceration site. DESCRIPTION OF PROCEDURE: Attention was directed to the anterior aspect of the right leg where an ulceration was noted, measuring approximately 3 cm x 2.5 cm x 0.1 cm. The ulceration was noted to be composed of a granular base with no visible bone exposure. Mild serous drainage was noted to the wound bed. Mechanical debridement was performed with the use of a dermal curette to remove all fibrotic and nonviable tissues from the wound margins. Next, using a biopsy probe, two punch biopsies were taken from the wound, one punch biopsy was taken from the leading margin and the second punch biopsy was taken from the central aspect of the wound. At this time, the area was copiously irrigated with normal sterile saline and a deep wound culture was taken from the biopsy site. At this time, the remaining fibrotic and nonviable tissue was removed and fresh healthy bleeding granular tissue had been noted. The site was then dressed with Xeroform, 4x4 gauze, and Kerlix. POSTOPERATIVE CONDITION: The patient tolerated the anesthesia and procedure well and was escorted to the recovery room with all vital signs stable and neurovascular status intact to the right lower extremity. The patient is to weightbear as tolerated to the right lower extremity in a surgical shoe. Podiatry will continue to follow while in house and will be seen by Dr. Salmeron at the [facility] or at his office upon discharge. MARILOU CARUSO Ayde Salmeron DPM [facility] # [phone]
[2018-07-04] MEDS: Vancomycin 1gm in NS 250ml 1 GM/250 ML BAG IVPB SCH (09:54)
[2018-07-04] MEDS: Vitamins A & D Oint UD Foilpak TOP SCH ×2 (09:54→17:21)
--- NOTE | 2018-07-04 10:34 | CP.PCM.PN ---
Subjective - Date & Time of Evaluation Date of Evaluation: 07/04/18 Time of Evaluation: 10:31 - Subjective Subjective: Podiatry Progress Note: Dr. Salmeron 42 year old female patient POD#1 R anterior leg wound debridement with biopsy. Patient resting comfortably and in NAD. Patient lethargic at this time. Denies nausea/vomiting/fever/shortness of breath/chest pain. Objective - Vital Signs/Intake and Output Vital Signs (last 24 hours): Temp Pulse Resp BP Pulse Ox 97.5 F L 85 18 136/83 93 L 07/04/18 06:00 07/04/18 06:00 07/04/18 06:00 07/04/18 06:00 07/04/18 06:00 Intake and Output: 07/04/18 07/04/18 06:59 18:59 Intake Total 360 Balance 360 - Medications Medications: Current Medications Acetaminophen (Tylenol 325mg Tab) 650 mg PO Q4H PRN PRN Reason: Pain, Mild (1-3) Allopurinol (Zyloprim) 100 mg PO DAILY [facility] Last Admin: 07/03/18 17:48 Dose: 100 mg Amlodipine Besylate (Norvasc) 5 mg PO DAILY [facility] Last Admin: 07/03/18 10:54 Dose: 5 mg Ascorbic Acid (Vitamin C 500 Mg Tab) 500 mg PO DAILY [facility] Last Admin: 07/03/18 10:54 Dose: 500 mg Aspirin (Aspirin Chewable) 81 mg PO DAILY [facility] Last Admin: 07/03/18 10:53 Dose: 81 mg Atorvastatin Calcium (Lipitor) 40 mg PO HS [facility] Last Admin: 07/03/18 22:15 Dose: 40 mg Cholecalciferol (Vitamin D) 2,000 intlu PO DAILY [facility] Last Admin: 07/03/18 10:54 Dose: 2,000 intlu Gabapentin (Neurontin) 300 mg PO HS [facility]; Protocol Last Admin: 07/03/18 22:16 Dose: 300 mg Heparin Sodium (Porcine) (Heparin) 5,000 units SC Q8 [facility]; Protocol Last Admin: 07/04/18 06:32 Dose: 5,000 units Vancomycin HCl (Vancomycin 1gm) 1 gm in 250 mls @ 167 mls/hr IVPB Q12H [facility]; Protocol Last Admin: 07/04/18 09:54 Dose: 167 mls/hr Cefazolin Sodium (Ancef 1gm In Ns) 1 gm in 100 mls @ 100 mls/hr IVPB Q8 [facility]; P rotocol Stop: 07/12/18 22:01 Last Admin: 07/04/18 06:32 Dose: 100 mls/hr Ibuprofen (Motrin Tab) 400 mg PO Q4H PRN PRN Reason: Pain, severe (8-10) Last Admin: 07/04/18 03:56 Dose: 400 mg Insulin Human Lispro (Humalog Med) 0 units SC [facility]; Protocol Last Admin: 07/04/18 08:59 Dose: Not Given Losartan Potassium (Cozaar) 50 mg PO DAILY [facility] Last Admin: 07/03/18 10:53 Dose: 50 mg Oxycodone/Acetaminophen (Percocet 5/325 Mg Tab) 1 tab PO Q4H PRN PRN Reason: Pain, moderate (4-7) Stop: 07/06/18 08:30 Oxycodone/Acetaminophen (Percocet 5/325 Mg Tab) 2 tab PO Q4H PRN PRN Reason: Pain, severe (8-10) Stop: 07/06/18 08:30 Pantoprazole Sodium (Protonix Ec Tab) 40 mg PO 0600 [facility] Last Admin: 07/04/18 06:32 Dose: 40 mg Tramadol HCl (Ultram) 50 mg PO HS PRN PRN Reason: Pain, severe (8-10) Last Admin: 07/04/18 00:26 Dose: 50 mg Vitamin A (Vitamin A & D Oint Ud Foilpak) 1 ea TOP BID [facility] Last Admin: 07/04/18 09:54 Dose: 1 ea Zinc Sulfate (Zinc Sulfate 220 Mg Cap) 220 mg PO DAILY [facility] Last Admin: 07/03/18 10:55 Dose: 220 mg - Labs Labs: 07/04/18 07:30 07/04/18 07:30 PT 12.4 SECONDS (9.4-12.5) 06/29/18 17:10 INR 1.12 06/29/18 17:10 APTT 34.1 Seconds (26.9-38.3) 06/29/18 17:10 - Constitutional Appears: Non-toxic, No Acute Distress - Head Exam Head Exam: ATRAUMATIC, NORMOCEPHALIC - Extremities Exam Additional comments: B/L lower extremity dressings left clean/dry/intact - Neurological Exam Neurological Exam: Alert, Awake, Oriented x3 - Psychiatric Exam Psychiatric exam: Normal Affect, Normal Mood - Skin Skin Exam: Warm Assessment and Plan - Assessment and Plan (Free Text) Assessment: 42 year old female POD#1 R leg wound debridement with biopsy Plan: Patient seen and evaluated with Dr. Faviola NOE, absent leukocytosis R tib/fib x-rays taken; no osseous involvement Wound culture taken; staph aureus Intra-op deep wound culture; pending Intra-op biopsy; pending Blood culture taken; no growth after 3 days Continue with IV abx per Dr. Kaiser Will continue to follow
[2018-07-04] MEDS: Cholecalciferol 1,000 INTLU TAB PO SCH (12:59)
--- NOTE | 2018-07-04 13:19 | CP.PCM.PN ---
<Roselia Zhang - Last Filed: 07/04/18 13:20> Subjective - Date & Time of Evaluation Date of Evaluation: 07/04/18 Time of Evaluation: 13:16 - Subjective Subjective: PGY-[address] Tracy Pt had no acute complaint. She doesnt want percocet. Got ultram x 1 mid night. today pain control by motrin Objective - Vital Signs/Intake and Output Vital Signs (last 24 hours): Temp Pulse Resp BP Pulse Ox 97.5 F L 85 18 136/83 93 L 07/04/18 06:00 07/04/18 06:00 07/04/18 06:00 07/04/18 06:00 07/04/18 06:00 Intake and Output: 07/04/18 07/04/18 06:59 18:59 Intake Total 360 Balance 360 - Medications Medications: Current Medications Acetaminophen (Tylenol 325mg Tab) 650 mg PO Q4H PRN PRN Reason: Pain, Mild (1-3) Allopurinol (Zyloprim) 100 mg PO DAILY [facility] Last Admin: 07/04/18 12:58 Dose: 100 mg Amlodipine Besylate (Norvasc) 5 mg PO DAILY [facility] Last Admin: 07/04/18 13:00 Dose: 5 mg Ascorbic Acid (Vitamin C 500 Mg Tab) 500 mg PO DAILY [facility] Last Admin: 07/04/18 12:59 Dose: 500 mg Aspirin (Aspirin Chewable) 81 mg PO DAILY [facility] Last Admin: 07/04/18 12:59 Dose: 81 mg Atorvastatin Calcium (Lipitor) 40 mg PO HS [facility] Last Admin: 07/03/18 22:15 Dose: 40 mg Cholecalciferol (Vitamin D) 2,000 intlu PO DAILY [facility] Last Admin: 07/04/18 12:59 Dose: 2,000 intlu Gabapentin (Neurontin) 300 mg PO HS [facility]; Protocol Last Admin: 07/03/18 22:16 Dose: 300 mg Heparin Sodium (Porcine) (Heparin) 5,000 units SC Q8 [facility]; Protocol Last Admin: 07/04/18 13:06 Dose: 5,000 units Cefazolin Sodium (Ancef 1gm In Ns) 1 gm in 100 mls @ 100 mls/hr IVPB Q8 [facility]; Protocol Stop: 07/12/18 22:01 Last Admin: 07/04/18 13:00 Dose: 100 mls/hr Ibuprofen (Motrin Tab) 400 mg PO Q4H PRN PRN Reason: Pain, severe (8-10) Last Admin: 07/04/18 03:56 Dose: 400 mg Insulin Human Lispro (Humalog Med) 0 units SC ACHS [facility]; Protocol Last Admin: 07/04/18 08:59 Dose: Not Given Losartan Potassium (Cozaar) 50 mg PO DAILY [facility] Last Admin: 07/04/18 12:59 Dose: 50 mg Pantoprazole Sodium (Protonix Ec Tab) 40 mg PO 0600 [facility] Last Admin: 07/04/18 06:32 Dose: 40 mg Tramadol HCl (Ultram) 50 mg PO HS PRN PRN Reason: Pain, severe (8-10) Last Admin: 07/04/18 00:26 Dose: 50 mg Vitamin A (Vitamin A & D Oint Ud Foilpak) 1 ea TOP BID [facility] Last Admin: 07/04/18 09:54 Dose: 1 ea Zinc Sulfate (Zinc Sulfate 220 Mg Cap) 220 mg PO DAILY [facility] Last Admin: 07/04/18 12:59 Dose: 220 mg - Labs Labs: 07/04/18 07:30 07/04/18 07:30 PT 12.4 SECONDS (9.4-12.5) 06/29/18 17:10 INR 1.12 06/29/18 17:10 APTT 34.1 Seconds (26.9-38.3) 06/29/18 17:10 - Constitutional Appears: No Acute Distress - Head Exam Head Exam: ATRAUMATIC, NORMAL INSPECTION, NORMOCEPHALIC - Eye Exam Eye Exam: EOMI, Normal appearance, PERRL. absent: Scleral icterus Pupil Exam: NORMAL ACCOMODATION - ENT Exam ENT Exam: Mucous Membranes Moist - Respiratory Exam Respiratory Exam: Decreased Breath Sounds (lung bases), Clear to Ausculation Bilateral, NORMAL BREATHING PATTERN. absent: Rales, Rhonchi, Wheezes - Cardiovascular Exam Cardiovascular Exam: REGULAR RHYTHM, +S1, +S2 - GI/Abdominal Exam GI & Abdominal Exam: Soft, Normal Bowel Sounds. absent: Tenderness - Back Exam Back Exam: absent: CVA tenderness (L), CVA tenderness (R) Additional comments: dressing d/c/i, edema - Neurological Exam Neurological Exam: Alert, Awake, Oriented x3 - Psychiatric Exam Psychiatric exam: Normal Affect, Normal Mood - Skin Skin Exam: Dry, Warm Assessment and Plan - Assessment and Plan (Free Text) Plan: 42F, PMH DM2, super morbid obesity of BMI 76, HTN, HLD, chronic venous ulcers, non-healing right griffin wound, and peripheral neuropathy, admitted for right anterior griffin ulcer/RLE diabetic nonhealing ulcer with MSSA, s/p debridement on 07/03/18, POD #1 Non-healing Chronic Right Lower Extremity Ulcer - F/u biopsy results from debridement - Repeat cx (07/03) neg x 1d - F/u final blood culture results - Anef (day 2) - Infectious Disease consulted - Tramadol, Ibuprofen, for pain - Dressing changes per podiatry Diabetes Mellitus, Type 2, A1C 7.5 - ISS, medium - Hypoglycemic protocol - Accuchecks ACHS Hypertension - controlled - Continue Norvasc 5mg PO QD - Continue Cozaar 50mg PO QD - Continue ASA 81mg PO QD Peripheral Neuropathy - Continue Gabapentin 300mg PO HS Hyperlipidemia - Continue Lipitor 40mg PO HS Hx of Gout - Continue Allopurinol 100mg PO QD PPX GI: Protonix DVT: Heparin HHD Dispose planning: podiatry ok pt to bare wt. Re-order physical therapy. Pending final cx. Will contact ID. Plan d/c in 24 to 48 hours. s/r/d/w Dr Tracy <Aminata Tracy - Last Filed: 07/04/18 16:35> Objective - Vital Signs/Intake and Output Vital Signs (last 24 hours): Temp Pulse Resp BP Pulse Ox 98.6 F 89 20 154/87 H 95 07/04/18 14:00 07/04/18 14:00 07/04/18 14:00 07/04/18 14:00 07/04/18 14:00 Intake and Output: 07/04/18 07/04/18 06:59 18:59 Intake Total 360 780 Balance 360 780 - Medications Medications: Current Medications Acetaminophen (Tylenol 325mg Tab) 650 mg PO Q4H PRN PRN Reason: Pain, Mild (1-3) Allopurinol (Zyloprim) 100 mg PO DAILY [facility] Last Admin: 07/04/18 12:58 Dose: 100 mg Amlodipine Besylate (Norvasc) 5 mg PO DAILY [facility] Last Admin: 07/04/18 13:00 Dose: 5 mg Ascorbic Acid (Vitamin C 500 Mg Tab) 500 mg PO DAILY [facility] Last Admin: 07/04/18 12:59 Dose: 500 mg Aspirin (Aspirin Chewable) 81 mg PO DAILY [facility] Last Admin: 07/04/18 12:59 Dose: 81 mg Atorvastatin Calcium (Lipitor) 40 mg PO HS [facility] Last Admin: 07/03/18 22:15 Dose: 40 mg Cholecalciferol (Vitamin D) 2,000 intlu PO DAILY [facility] Last Admin: 07/04/18 12:59 Dose: 2,000 intlu Gabapentin (Neurontin) 300 mg PO HS [facility]; Protocol Last Admin: 07/03/18 22:16 Dose: 300 mg Heparin Sodium (Porcine) (Heparin) 5,000 units SC Q8 [facility]; Protocol Last Admin: 07/04/18 13:06 Dose: 5,000 units Cefazolin Sodium (Ancef 1gm In Ns) 1 gm in 100 mls @ 100 mls/hr IVPB Q8 [facility]; Protocol Stop: 07/12/18 22:01 Last Admin: 07/04/18 13:00 Dose: 100 mls/hr Ibuprofen (Motrin Tab) 400 mg PO Q4H PRN PRN Reason: Pain, severe (8-10) Last Admin: 07/04/18 13:17 Dose: 400 mg Insulin Human Lispro (Humalog Med) 0 units SC ACHS [facility]; Protocol Last Admin: 07/04/18 08:59 Dose: Not Given Losartan Potassium (Cozaar) 50 mg PO DAILY [facility] Last Admin: 07/04/18 12:59 Dose: 50 mg Pantoprazole Sodium (Protonix Ec Tab) 40 mg PO 0600 [facility] Last Admin: 07/04/18 06:32 Dose: 40 mg Tramadol HCl (Ultram) 50 mg PO HS PRN PRN Reason: Pain, severe (8-10) Last Admin: 07/04/18 00:26 Dose: 50 mg Vitamin A (Vitamin A & D Oint Ud Foilpak) 1 ea TOP BID [facility] Last Admin: 07/04/18 09:54 Dose: 1 ea Zinc Sulfate (Zinc Sulfate 220 Mg Cap) 220 mg PO DAILY [facility] Last Admin: 07/04/18 12:59 Dose: 220 mg - Labs Labs: 07/04/18 07:30 07/04/18 07:30 PT 12.4 SECONDS (9.4-12.5) 06/29/18 17:10 INR 1.12 06/29/18 17:10 APTT 34.1 Seconds (26.9-38.3) 06/29/18 17:10 Attending/Attestation - Attestation I have personally seen and examined this patient.: Yes I have fully participated in the care of the patient.: Yes I have reviewed all pertinent clinical information, including history, physical exam and plan: Yes Notes (Text): 07/04/18 16:34 42 year old female with past medical history of diabetes, hypertension, and chronic venous ulcers who presented with chronic right lower extremity ulcerat ions / non healing right griffin wound. Continue with iv antibiotics as per ID. Wound culture is growing staph aureus. Continue with wound care as per podiatry. She is s/p debridement and biopsy yesterday and awaiting pathology. PT evaluation was appreciated. Continue with out of bed to chair. Patient was counselled on weight loss, exercise and diet modifications for obesity. Aminata Tracy MD Hospitalist.
--- NOTE | 2018-07-04 13:22 | PN ---
DATE: 07/04/2018 REASON FOR CONSULTATION AND FOLLOWUP: Hypertension, morbid obesity, preop evaluation for wound debridement, status post followup. SUBJECTIVE: The patient denies any chest pain, shortness of breath, or any palpitation. Lying flat on the bed. OBJECTIVE: GENERAL: Lying flat on the bed, not in apparent distress. VITAL SIGNS: Temperature afebrile, heart rate 85, blood pressure 136/83. HEENT: PERRLA. Extraocular muscles intact. NECK: Supple. No carotid bruit or thyromegaly. CHEST: Clear to auscultation. HEART: S1 and S2, regular. ABDOMEN: Soft. EXTREMITIES: Clubbing and cyanosis, negative. LABORATORY DATA: Blood workup as follows: WBC 7.3, hemoglobin 11.0, hematocrit 37.5, platelet count 214. Chemistry shows sodium 141, potassium 4.0, chloride 104, carbon dioxide 29, anion gap of 12, BUN 14, creatinine 0.6. IMPRESSION: A 42-year-old morbidly obese female with past medical history of hypertension, morbid obesity, admitted for wound debridement, history of hypertension, hyperlipidemia, history of diabetes, history of neuropathy, fibroid uterus and chronic venous stasis ulcer, underwent wound debridement. The patient has echocardiography that shows ejection fraction 57%, mild prolapse, mitral valve, trace mitral regurgitation, trace tricuspid regurgitation. The patient is clear to go for surgery. The patient is now postop. status is stable. RECOMMENDATIONS: Continue current treatment. We will signed off and glad to follow p.r.n. Emphasis made for modification of lifestyle, modification of risk factor for coronary artery disease, also suggest in future to have sleep study done to rule out sleep apnea. We will sign off and glad to follow p.r.n. Thank you Dr. Tracy, for providing us the opportunity in taking care of the patient. Laron Jordan. Supriya Mckoy MD
[2018-07-04] MEDS ORDERED: Unna Boot TOP ONE (16:21)
--- NOTE | 2018-07-05 01:02 | PN ---
DATE: 07/05/2018 SUBJECTIVE: The patient is in bed in no acute distress, nontoxic. PHYSICAL EXAMINATION VITAL SIGNS: Temperature is 98, blood pressure is 120/70, respiratory rate is 16. HEENT: Unremarkable. NECK: Supple. CARDIOPULMONARY: Heart exam normal S1, S2. LUNGS: Have decreased breath sounds. ABDOMEN: Soft, nontender. LABORATORY DATA: Reveals a white count of 7.3, hemoglobin of 11, platelets of 214. Chemistries are noted. Serology is reviewed. Microbiology reveals a sensitive staph aureus from the wound. MEDICATIONS: Review of orders reveals the patient to be on cefazolin. ASSESSMENT AND PLAN: A 42-year-old female with super morbid obesity, body mass index of 46 and a right anterior griffin ulcer, right lower extremity diabetic nonhealing ulcer sensitive staphylococcus aureus on Ancef, awaiting for operating room cultures and operating room pathology. We will make further recommendations. Davion Kaiser MD
[2018-07-05] MEDS: ceFAZolin 1 gm in NS 1 GM/100 ML BAG IVPB SCH ×3 (06:00→21:47)
[2018-07-05] MEDS: Pantoprazole 40 mg EC Tab PO SCH (06:00)
[2018-07-05] MEDS: Insulin Lispro (humaLOG) MEDIUM Coverage SC SCH ×3 (08:14→17:48)
[2018-07-05] MEDS: Cholecalciferol 1,000 INTLU TAB PO SCH (10:21)
[2018-07-05] MEDS: Vitamins A & D Oint UD Foilpak TOP SCH ×2 (10:22→18:54)
--- NOTE | 2018-07-05 12:57 | CP.PCM.PN ---
<Marilou Ochoa - Last Filed: 07/05/18 12:58> Subjective - Date & Time of Evaluation Date of Evaluation: 07/05/18 Time of Evaluation: 12:54 - Subjective Subjective: Podiatry Progress Note: Dr. Carlton Patient seen and evaluated POD#2 R anterior leg wound debridement with biopsy. Patient resting comfortably and in NAD. Denies any acute events overnight. Denies nausea/vomiting/fever/shortness of breath/chest pain. Objective - Vital Signs/Intake and Output Vital Signs (last 24 hours): Temp Pulse Resp BP Pulse Ox 98.9 F 97 H 20 152/84 H 93 L 07/05/18 06:00 07/05/18 10:21 07/05/18 06:00 07/05/18 10:21 07/05/18 06:00 Intake and Output: 07/05/18 07/05/18 06:59 18:59 Intake Total 900 600 Balance 900 600 - Medications Medications: Current Medications Acetaminophen (Tylenol 325mg Tab) 650 mg PO Q4H PRN PRN Reason: Pain, Mild (1-3) Allopurinol (Zyloprim) 100 mg PO DAILY [facility] Last Admin: 07/05/18 10:21 Dose: 100 mg Amlodipine Besylate (Norvasc) 5 mg PO DAILY [facility] Last Admin: 07/05/18 10:21 Dose: 5 mg Ascorbic Acid (Vitamin C 500 Mg Tab) 500 mg PO DAILY [facility] Last Admin: 07/05/18 10:21 Dose: 500 mg Aspirin (Aspirin Chewable) 81 mg PO DAILY [facility] Last Admin: 07/05/18 10:21 Dose: 81 mg Atorvastatin Calcium (Lipitor) 40 mg PO HS [facility] Last Admin: 07/04/18 22:02 Dose: 40 mg Cholecalciferol (Vitamin D) 2,000 intlu PO DAILY [facility] Last Admin: 07/05/18 10:21 Dose: 2,000 intlu Gabapentin (Neurontin) 300 mg PO HS [facility]; Protocol Last Admin: 07/04/18 22:02 Dose: 300 mg Heparin Sodium (Porcine) (Heparin) 5,000 units SC Q8 [facility]; Protocol Last Admin: 07/05/18 06:00 Dose: 5,000 units Cefazolin Sodium (Ancef 1gm In Ns) 1 gm in 100 mls @ 100 mls/hr IVPB Q8 [facility]; Protocol Stop: 07/12/18 22:01 Last Admin: 07/05/18 06:00 Dose: 100 mls/hr Ibuprofen (Motrin Tab) 400 mg PO Q4H PRN PRN Reason: Pain, severe (8-10) Last Admin: 07/05/18 10:21 Dose: 400 mg Insulin Human Lispro (Humalog Med) 0 units SC ACHS [facility]; Protocol Last Admin: 07/05/18 11:57 Dose: Not Given Losartan Potassium (Cozaar) 50 mg PO DAILY [facility] Last Admin: 07/05/18 10:20 Dose: 50 mg Pantoprazole Sodium (Protonix Ec Tab) 40 mg PO 0600 [facility] Last Admin: 07/05/18 06:00 Dose: 40 mg Tramadol HCl (Ultram) 50 mg PO HS PRN PRN Reason: Pain, severe (8-10) Last Admin: 07/04/18 22:02 Dose: 50 mg Vitamin A (Vitamin A & D Oint Ud Foilpak) 1 ea TOP BID [facility] Last Admin: 07/05/18 10:22 Dose: Not Given Zinc Sulfate (Zinc Sulfate 220 Mg Cap) 220 mg PO DAILY [facility] Last Admin: 07/05/18 10:21 Dose: 220 mg - Labs Labs: 07/04/18 07:30 07/04/18 07:30 PT 12.4 SECONDS (9.4-12.5) 06/29/18 17:10 INR 1.12 06/29/18 17:10 APTT 34.1 Seconds (26.9-38.3) 06/29/18 17:10 - Constitutional Appears: Non-toxic, No Acute Distress - Head Exam Head Exam: ATRAUMATIC, NORMOCEPHALIC - Extremities Exam Additional comments: LE focused exam Vasc: DP and PT pulses mildly palpable; cap refill <3 seconds; edema to lower extremity present secondary to lymphedema and obesity Ortho: pain upon palpation of the right leg wound Neuro: gross and protective sensation intact Derm: RLE: Ulceration appreciated to the anterior aspect of the R leg, measuring approximately 2.5 cm x 2.0 cm x .1 cm with 100% granular base; resolving. No erythema appreciated periwound. Mild serious drainage, no active purulence appr eciated, no cellulitis LLE: Small ulceration appreciated to anterior aspect of L leg measuring appro ximately 2 x 1 x .1 cm with 100% granular base. No drainage, no tunneling, no tracking, no malodor, no probe to bone. - Neurological Exam Neurological Exam: Alert, Awake, Oriented x3 - Psychiatric Exam Psychiatric exam: Normal Affect, Normal Mood Assessment and Plan - Assessment and Plan (Free Text) Assessment: 42 year old female POD#2 R leg wound debridement with biopsy Plan: Patient seen and evaluated with Dr. Carlton VSS, absent leukocytosis R tib/fib x-rays taken; no osseous involvement Wound culture taken; staph aureus Intra-op deep wound culture; gram+ cocci Intra-op biopsy; pending Blood culture taken; no growth after 5 days Continue with IV abx per Dr. Kaiser Local wound care: xeroform, maxorb, dsd Patient placed in UNNA boots bilaterally, patient to leave dressing c/d/i Pending d/c patient to follow up in office or wound care center with Dr. Salmeron/Bianka Will continue to follow <Perry Carlton - Last Filed: 07/06/18 09:38> Objective - Vital Signs/Intake and Output Vital Signs (last 24 hours): Temp Pulse Resp BP Pulse Ox 98.7 F 92 H 19 133/77 94 L 07/06/18 06:00 07/06/18 09:30 07/06/18 06:00 07/06/18 09:30 07/06/18 06:00 Intake and Output: 07/06/18 07/06/18 06:59 18:59 Intake Total 840 Balance 840 - Medications Medications: Current Medications Acetaminophen (Tylenol 325mg Tab) 650 mg PO Q4H PRN PRN Reason: Pain, Mild (1-3) Allopurinol (Zyloprim) 100 mg PO DAILY [facility] Last Admin: 07/06/18 09:30 Dose: 100 mg Amlodipine Besylate (Norvasc) 5 mg PO DAILY [facility] Last Admin: 07/06/18 09:29 Dose: 5 mg Ascorbic Acid (Vitamin C 500 Mg Tab) 500 mg PO DAILY [facility] Last Admin: 07/06/18 09:29 Dose: 500 mg Aspirin (Aspirin Chewable) 81 mg PO DAILY [facility] Last Admin: 07/06/18 09:29 Dose: 81 mg Atorvastatin Calcium (Lipitor) 40 mg PO HS [facility] Last Admin: 07/05/18 21:47 Dose: 40 mg Cholecalciferol (Vitamin D) 2,000 intlu PO DAILY [facility] Last Admin: 07/06/18 09:29 Dose: 2,000 intlu Gabapentin (Neurontin) 300 mg PO HS [facility]; Protocol Last Admin: 07/04/18 22:02 Dose: 300 mg Heparin Sodium (Porcine) (Heparin) 5,000 units SC Q8 [facility]; Protocol Last Admin: 07/06/18 06:08 Dose: 5,000 units Cefazolin Sodium (Ancef 1gm In Ns) 1 gm in 100 mls @ 100 mls/hr IVPB Q8 [facility]; Protocol Stop: 07/12/18 22:01 Last Admin: 07/06/18 06:08 Dose: 100 mls/hr Ibuprofen (Motrin Tab) 400 mg PO Q4H PRN PRN Reason: Pain, severe (8-10) Last Admin: 07/06/18 06:08 Dose: 400 mg Insulin Human Lispro (Humalog Med) 0 units SC ACHS [facility]; Protocol Last Admin: 07/06/18 07:30 Dose: Not Given Losartan Potassium (Cozaar) 50 mg PO DAILY [facility] Last Admin: 07/06/18 09:30 Dose: 50 mg Pantoprazole Sodium (Protonix Ec Tab) 40 mg PO 0600 [facility] Last Admin: 07/06/18 06:09 Dose: 40 mg Tramadol HCl (Ultram) 50 mg PO HS PRN PRN Reason: Pain, severe (8-10) Last Admin: 07/05/18 21:47 Dose: 50 mg Vitamin A (Vitamin A & D Oint Ud Foilpak) 1 ea TOP BID [facility] Last Admin: 07/06/18 09:25 Dose: Not Given Zinc Sulfate (Zinc Sulfate 220 Mg Cap) 220 mg PO DAILY [facility] Last Admin: 07/06/18 09:30 Dose: 220 mg - Labs Labs: 07/04/18 07:30 07/04/18 07:30 PT 12.4 SECONDS (9.4-12.5) 06/29/18 17:10 INR 1.12 06/29/18 17:10 APTT 34.1 Seconds (26.9-38.3) 06/29/18 17:10 Attending/Attestation - Attestation I have personally seen and examined this patient.: Yes I have fully participated in the care of the patient.: Yes I have reviewed all pertinent clinical information, including history, physical exam and plan: Yes
--- NOTE | 2018-07-05 13:22 | CP.PCM.PN ---
<Tobi Nettles - Last Filed: 07/05/18 13:53> Subjective - Date & Time of Evaluation Date of Evaluation: 07/05/18 Time of Evaluation: :19 - Subjective Subjective: Medicine Progress Note for Dr. Tracy 42F seen and evaluated at bedside this morning. No acute events overnight. No complaints this morning. Patient lower extremity dressings c/d/i. Pain controlled. Tolerating diet. Denies f/c, n/v/d, SOB, CP, or urinary symptoms. Objective - Vital Signs/Intake and Output Vital Signs (last 24 hours): Temp Pulse Resp BP Pulse Ox 98.9 F 97 H 20 152/84 H 93 L 07/05/18 06:00 07/05/18 10:21 07/05/18 06:00 07/05/18 10:21 07/05/18 06:00 Intake and Output: 07/05/18 07/05/18 06:59 18:59 Intake Total 900 600 Balance 900 600 - Medications Medications: Current Medications Acetaminophen (Tylenol 325mg Tab) 650 mg PO Q4H PRN PRN Reason: Pain, Mild (1-3) Allopurinol (Zyloprim) 100 mg PO DAILY [facility] Last Admin: 07/05/18 10:21 Dose: 100 mg Amlodipine Besylate (Norvasc) 5 mg PO DAILY [facility] Last Admin: 07/05/18 10:21 Dose: 5 mg Ascorbic Acid (Vitamin C 500 Mg Tab) 500 mg PO DAILY [facility] Last Admin: 07/05/18 10:21 Dose: 500 mg Aspirin (Aspirin Chewable) 81 mg PO DAILY [facility] Last Admin: 07/05/18 10:21 Dose: 81 mg Atorvastatin Calcium (Lipitor) 40 mg PO HS [facility] Last Admin: 07/04/18 22:02 Dose: 40 mg Cholecalciferol (Vitamin D) 2,000 intlu PO DAILY [facility] Last Admin: 07/05/18 10:21 Dose: 2,000 intlu Gabapentin (Neurontin) 300 mg PO HS [facility]; Protocol Last Admin: 07/04/18 22:02 Dose: 300 mg Heparin Sodium (Porcine) (Heparin) 5,000 units SC Q8 [facility]; Protocol Last Admin: 07/05/18 06:00 Dose: 5,000 units Cefazolin Sodium (Ancef 1gm In Ns) 1 gm in 100 mls @ 100 mls/hr IVPB Q8 [facility]; Protocol Stop: 07/12/18 22:01 Last Admin: 07/05/18 06:00 Dose: 100 mls/hr Ibuprofen (Motrin Tab) 400 mg PO Q4H PRN PRN Reason: Pain, severe (8-10) Last Admin: 07/05/18 10:21 Dose: 400 mg Insulin Human Lispro (Humalog Med) 0 units SC ACHS [facility]; Protocol Last Admin: 07/05/18 11:57 Dose: Not Given Losartan Potassium (Cozaar) 50 mg PO DAILY [facility] Last Admin: 07/05/18 10:20 Dose: 50 mg Pantoprazole Sodium (Protonix Ec Tab) 40 mg PO 0600 [facility] Last Admin: 07/05/18 06:00 Dose: 40 mg Tramadol HCl (Ultram) 50 mg PO HS PRN PRN Reason: Pain, severe (8-10) Last Admin: 07/04/18 22:02 Dose: 50 mg Vitamin A (Vitamin A & D Oint Ud Foilpak) 1 ea TOP BID [facility] Last Admin: 07/05/18 10:22 Dose: Not Given Zinc Sulfate (Zinc Sulfate 220 Mg Cap) 220 mg PO DAILY [facility] Last Admin: 07/05/18 10:21 Dose: 220 mg - Labs Labs: 07/04/18 07:30 07/04/18 07:30 PT 12.4 SECONDS (9.4-12.5) 06/29/18 17:10 INR 1.12 06/29/18 17:10 APTT 34.1 Seconds (26.9-38.3) 06/29/18 17:10 - Constitutional Appears: Non-toxic, No Acute Distress, Other (morbidly obese) - Head Exam Head Exam: ATRAUMATIC, NORMAL INSPECTION, NORMOCEPHALIC - Eye Exam Eye Exam: EOMI - ENT Exam ENT Exam: Mucous Membranes Dry - Respiratory Exam Respiratory Exam: NORMAL BREATHING PATTERN. absent: Respiratory Distress - Cardiovascular Exam Cardiovascular Exam: Tachycardia, REGULAR RHYTHM - GI/Abdominal Exam GI & Abdominal Exam: Soft, Normal Bowel Sounds. absent: Tenderness - Extremities Exam Extremities Exam: Pedal Edema, Tenderness Additional comments: Dressings c/d/i Palpable DP pulses bilaterally - Neurological Exam Neurological Exam: Alert, Awake, Oriented x3 - Psychiatric Exam Psychiatric exam: Normal Affect, Normal Mood Assessment and Plan - Assessment and Plan (Free Text) Assessment: 42F, PMH DM2, morbid obesity, HTN, HLD, chronic venous ulcers, non-healing right griffin wound, and peripheral neuropathy, admitted for chronic right lower extremity ulcerations debrided by podiatry POD#2 Plan: Non-healing Chronic Right Lower Extremity Ulcer - S/p Debridement POD#2 - Biopsy: Acute and chronic inflammation, granulation tissue, fibrosis, negative for malignancy - Wound cultures positive for s. aureus - F/u final blood culture results - Cefazolin 1gm IVPB Q8 - Infectious Disease following - Tramadol and Ibuprofen for pain - Dressing changes per podiatry Diabetes Mellitus, Type 2 - Hgb A1c 7.5 - ISS, medium - Hypoglycemic protocol - Accuchecks ACHS Hypertension - Continue Norvasc 5mg PO QD - Continue Cozaar 50mg PO QD - Continue ASA 81mg PO QD Peripheral Neuropathy - Continue Gabapentin 300mg PO HS Hyperlipidemia - Lipid panel wnl - Continue Lipitor 40mg PO HS Hx of Gout - Continue Allopurinol 100mg PO QD PPX GI: Protonix DVT: Heparin HHD Dispo: PT recommends discharge Home with family support or Home with health services. Per social work, patient lives in [facility] and transportation will be coordinated with [employer] when ready for discharge. Pending final cultures and ID. Patient plan discussed with Dr. Demarcus Nettles PGY1 <Aminata Tracy - Last Filed: 07/05/18 15:18> Objective - Vital Signs/Intake and Output Vital Signs (last 24 hours): Temp Pulse Resp BP Pulse Ox 97.6 F 95 H 20 140/88 94 L 07/05/18 14:00 07/05/18 14:00 07/05/18 14:00 07/05/18 14:00 07/05/18 14:00 Intake and Output: 07/05/18 07/05/18 06:59 18:59 Intake Total 900 600 Balance 900 600 - Medications Medications: Current Medications Acetaminophen (Tylenol 325mg Tab) 650 mg PO Q4H PRN PRN Reason: Pain, Mild (1-3) Allopurinol (Zyloprim) 100 mg PO DAILY [facility] Last Admin: 07/05/18 10:21 Dose: 100 mg Amlodipine Besylate (Norvasc) 5 mg PO DAILY [facility] Last Admin: 07/05/18 10:21 Dose: 5 mg Ascorbic Acid (Vitamin C 500 Mg Tab) 500 mg PO DAILY [facility] Last Admin: 07/05/18 10:21 Dose: 500 mg Aspirin (Aspirin Chewable) 81 mg PO DAILY [facility] Last Admin: 07/05/18 10:21 Dose: 81 mg Atorvastatin Calcium (Lipitor) 40 mg PO HS [facility] Last Admin: 07/04/18 22:02 Dose: 40 mg Cholecalciferol (Vitamin D) 2,000 intlu PO DAILY [facility] Last Admin: 07/05/18 10:21 Dose: 2,000 intlu Gabapentin (Neurontin) 300 mg PO HS [facility]; Protocol Last Admin: 07/04/18 22:02 Dose: 300 mg Heparin Sodium (Porcine) (Heparin) 5,000 units SC Q8 [facility]; Protocol Last Admin: 07/05/18 13:43 Dose: 5,000 units Cefazolin Sodium (Ancef 1gm In Ns) 1 gm in 100 mls @ 100 mls/hr IVPB Q8 [facility]; Protocol Stop: 07/12/18 22:01 Last Admin: 07/05/18 13:43 Dose: 100 mls/hr Ibuprofen (Motrin Tab) 400 mg PO Q4H PRN PRN Reason: Pain, severe (8-10) Last Admin: 07/05/18 10:21 Dose: 400 mg Insulin Human Lispro (Humalog Med) 0 units SC ACHS [facility]; Protocol Last Admin: 07/05/18 11:57 Dose: Not Given Losartan Potassium (Cozaar) 50 mg PO DAILY [facility] Last Admin: 07/05/18 10:20 Dose: 50 mg Pantoprazole Sodium (Protonix Ec Tab) 40 mg PO 0600 [facility] Last Admin: 07/05/18 06:00 Dose: 40 mg Tramadol HCl (Ultram) 50 mg PO HS PRN PRN Reason: Pain, severe (8-10) Last Admin: 07/04/18 22:02 Dose: 50 mg Vitamin A (Vitamin A & D Oint Ud Foilpak) 1 ea TOP BID [facility] Last Admin: 07/05/18 10:22 Dose: Not Given Zinc Sulfate (Zinc Sulfate 220 Mg Cap) 220 mg PO DAILY [facility] Last Admin: 07/05/18 10:21 Dose: 220 mg - Labs Labs: 07/04/18 07:30 07/04/18 07:30 PT 12.4 SECONDS (9.4-12.5) 06/29/18 17:10 INR 1.12 06/29/18 17:10 APTT 34.1 Seconds (26.9-38.3) 06/29/18 17:10 Attending/Attestation - Attestation I have personally seen and examined this patient.: Yes I have fully participated in the care of the patient.: Yes I have reviewed all pertinent clinical information, including history, physical exam and plan: Yes Notes (Text): 07/05/18 15:17 42 year old female with past medical history of diabetes, hypertension, and chronic venous ulcers who presented with chronic right lower extremity ulcerations / non healing right griffin wound. Continue with wound care as per podiatry. Continue with iv antibiotics as per ID. Initial wound culture was growing staph aureus. She is s/p debridement on Tuesday. Biopsy was reviewed as above. Awaiting repeat cultures for d/c recommendations. PT evaluation was appreciated. Continue with out of bed to chair. Patient was counselled on weight loss, exercise and diet modifications for obesity. Aminata Tracy MD Hospitalist.
--- NOTE | 2018-07-05 15:28 | PCM.SURG1 ---
Surgeon's Initial Post Op Note - Surgeon's Notes Surgeon: Dr. Shane Zamora DPM In [employer] Banker: Dr. Marilou Ochoa PGY1 Type of Anesthesia: IV Sedation, Local Anesthesia Administered By: Dr. Carrasco Pre-Operative Diagnosis: Right non-healing ulceration Operative Findings: See dictation. I: 20cc of 1:1 mix 0.5% marcaine plain, 1% Lidocaine plain. M: 1/2 inch packing Post-Operative Diagnosis: Same Operation Performed: Right wound debridement with removal of non-viable bone and soft tissue Specimen/Specimens Removed: Bone from right foot Estimated Blood Loss: EBL {In ML}: 10 Blood Products Given: N/A Drains Used: No Drains Post-Op Condition: Good Date of Surgery/Procedure: 07/05/18 Time of Surgery/Procedure: 15:29
--- NOTE | 2018-07-06 01:50 | PN ---
DATE: 07/05/2018 SUBJECTIVE: The patient is in bed, in no acute distress, nontoxic. No fever or chills. PHYSICAL EXAMINATION: VITAL SIGNS: Temperature is 98, blood pressure is 140/80, and respiratory rate 20. HEENT: Unremarkable. NECK: Supple. LUNGS: Have decreased breath sounds. HEART: Normal S1 and S2. ABDOMEN: Soft. LABORATORY DATA: Laboratory examination reveals the white count is noted and 7.3. Sed rate is 43 and creatinine is 0.6. The patient's C-reactive protein is elevated at 13. Serology is noted to be negative for HIV. Review of orders reveals the patient to be on cefazolin. Pathology report is reviewed. ASSESSMENT AND PLAN: A 42-year-old female with super morbid obesity, body mass index of 46, right anterior griffin ulcer with sensitive Staphylococcus aureus, superficial culture, deep cultures, Gram-positive cocci. The pathology of bone will be reviewed with pathologies currently on nonsteroidal anti-inflammatory drugs. We will follow with you. Davion Kaiser MD
[2018-07-06] MEDS: ceFAZolin 1 gm in NS 1 GM/100 ML BAG IVPB SCH (06:08)
[2018-07-06] MEDS: Pantoprazole 40 mg EC Tab PO SCH (06:09)
[2018-07-06] MEDS: Insulin Lispro (humaLOG) MEDIUM Coverage SC SCH ×2 (07:30→11:30)
[2018-07-06 07:57] VITALS: TEMP 98.7; O2SAT 94
[2018-07-06] MEDS: Vitamins A & D Oint UD Foilpak TOP SCH ×2 (09:25→20:34)
[2018-07-06] MEDS: Cholecalciferol 1,000 INTLU TAB PO SCH (09:29)
--- NOTE | 2018-07-06 11:23 | CP.PCM.PN ---
Subjective - Date & Time of Evaluation Date of Evaluation: 07/06/18 Time of Evaluation: 11:20 - Subjective Subjective: Podiatry Progress Note: Dr. Salmeron Patient seen and evaluated POD#3 R anterior leg wound debridement with biopsy. Patient resting comfortably in bed and in NAD. Patient reports pain to b/l lower extremities with R > L. Denies nausea/vomiting/fever/chest/pain/chills. Objective - Vital Signs/Intake and Output Vital Signs (last 24 hours): Temp Pulse Resp BP Pulse Ox 98.7 F 92 H 19 133/77 94 L 07/06/18 06:00 07/06/18 09:30 07/06/18 06:00 07/06/18 09:30 07/06/18 06:00 Intake and Output: 07/06/18 07/06/18 06:59 18:59 Intake Total 840 Balance 840 - Medications Medications: Current Medications Acetaminophen (Tylenol 325mg Tab) 650 mg PO Q4H PRN PRN Reason: Pain, Mild (1-3) Allopurinol (Zyloprim) 100 mg PO DAILY [facility] Last Admin: 07/06/18 09:30 Dose: 100 mg Amlodipine Besylate (Norvasc) 5 mg PO DAILY [facility] Last Admin: 07/06/18 09:29 Dose: 5 mg Ascorbic Acid (Vitamin C 500 Mg Tab) 500 mg PO DAILY [facility] Last Admin: 07/06/18 09:29 Dose: 500 mg Aspirin (Aspirin Chewable) 81 mg PO DAILY [facility] Last Admin: 07/06/18 09:29 Dose: 81 mg Atorvastatin Calcium (Lipitor) 40 mg PO HS [facility] Last Admin: 07/05/18 21:47 Dose: 40 mg Cholecalciferol (Vitamin D) 2,000 intlu PO DAILY [facility] Last Admin: 07/06/18 09:29 Dose: 2,000 intlu Gabapentin (Neurontin) 300 mg PO HS [facility]; Protocol Last Admin: 07/04/18 22:02 Dose: 300 mg Heparin Sodium (Porcine) (Heparin) 5,000 units SC Q8 [facility]; Protocol Last Admin: 07/06/18 06:08 Dose: 5,000 units Cefazolin Sodium (Ancef 1gm In Ns) 1 gm in 100 mls @ 100 mls/hr IVPB Q8 [facility]; Protocol Stop: 07/12/18 22:01 Last Admin: 07/06/18 06:08 Dose: 100 mls/hr Ibuprofen (Motrin Tab) 400 mg PO Q4H PRN PRN Reason: Pain, severe (8-10) Last Admin: 07/06/18 06:08 Dose: 400 mg Insulin Human Lispro (Humalog Med) 0 units SC ACHS [facility]; Protocol Last Admin: 07/06/18 07:30 Dose: Not Given Losartan Potassium (Cozaar) 50 mg PO DAILY [facility] Last Admin: 07/06/18 09:30 Dose: 50 mg Pantoprazole Sodium (Protonix Ec Tab) 40 mg PO 0600 [facility] Last Admin: 07/06/18 06:09 Dose: 40 mg Tramadol HCl (Ultram) 50 mg PO HS PRN PRN Reason: Pain, severe (8-10) Last Admin: 07/05/18 21:47 Dose: 50 mg Vitamin A (Vitamin A & D Oint Ud Foilpak) 1 ea TOP BID [facility] Last Admin: 07/06/18 09:25 Dose: Not Given Zinc Sulfate (Zinc Sulfate 220 Mg Cap) 220 mg PO DAILY [facility] Last Admin: 07/06/18 09:30 Dose: 220 mg - Labs Labs: 07/04/18 07:30 07/04/18 07:30 PT 12.4 SECONDS (9.4-12.5) 06/29/18 17:10 INR 1.12 06/29/18 17:10 APTT 34.1 Seconds (26.9-38.3) 06/29/18 17:10 - Constitutional Appears: Non-toxic, No Acute Distress - Head Exam Head Exam: ATRAUMATIC, NORMOCEPHALIC - Extremities Exam Additional comments: Unna boots to b/l lower extremities clean/dry/intact No strikethrough - Neurological Exam Neurological Exam: Alert, Awake, Oriented x3 - Psychiatric Exam Psychiatric exam: Normal Affect, Normal Mood Assessment and Plan - Assessment and Plan (Free Text) Assessment: 42 year old female POD#3 R leg wound debridement with biopsy Plan: Patient seen and evaluated with Dr. Faviola NOE, absent leukocytosis R tib/fib x-rays taken; no osseous involvement Intra-op deep wound culture; gram+ cocci Intra-op biopsy- deep tissue and leading edge; negative for malignancy Blood culture taken; no growth after 5 days Patient placed in UNNA boots bilaterally, patient to leave dressing c/d/i Patient can be discharged on PO abx per Dr. Job daly Pending d/c patient to follow up in office or wound care center with Dr. Salmeron/Bianka
--- NOTE | 2018-07-06 13:21 | CP.PCM.DIS ---
<Tobi Netltes - Last Filed: 07/06/18 14:05> Provider - Provider Date of Admission: 06/29/18 18:13 Attending physician: Aminata Tracy MD Primary care physician: Juanito Grady Consults: 06/29/18 16:21 Podiatry Consult Stat Comment: Consulting Provider: Ayde Salmeron Consulting Physician: Ayde Salmeron Reason for Consult: Right Anterior Liu Wound 06/29/18 17:52 Infectious Disease Consult Routine Comment: Consulting Provider: Davion Kaiser Consulting Physician: Davion Kaiser Reason for Consult: RLE diabetic ulcer 06/30/18 05:07 Diabetic Education Referral Routine Comment: Physician Instructions: Reason For Exam: met critertia 06/30/18 18:00 Physician Consult Routine Comment: Consulting Provider: Supriya Madsen Consulting Physician: Supriya Madsen Reason for Consult: Cardiac clearance for RLE ulcer debriedment 07/03/18 08:56 Nursing Referral for Wound Care Routine Comment: Physician Instructions: Reason For Exam: new wound debridments 07/04/18 16:30 Nursing Referral for Wound Care Routine Comment: Physician Instructions: Reason For Exam: N/A 07/04/18 17:16 Discharge Planning [Case Management Referral] Routine Comment: Physician Instructions: Reason For Exam: Reason for Referral: [facility] Eval Time Spent in preparation of Discharge (in minutes): 60 Hospital Course - Lab Results Lab Results: Micro Results 07/03/18 08:36 Other: Please Indicate Gram Stain - Final 07/03/18 08:36 Other: Please Indicate Wound Culture - Preliminary Gram Positive Cocci 07/03/18 08:36 Leg - Right Anaerobic Culture - Final NO ANAEROBES ISOLATED. 06/29/18 17:30 Blood Blood Culture - Final NO GROWTH AFTER 5 DAYS 06/29/18 17:30 Blood Gram Stain - Final TEST NOT PERFORMED 06/29/18 17:10 Blood Blood Culture - Final NO GROWTH AFTER 5 DAYS 06/29/18 17:10 Blood Gram Stain - Final TEST NOT PERFORMED 06/29/18 18:10 Leg - Right Gram Stain - Final 06/29/18 18:10 Leg - Right Wound Culture - Final Staphylococcus Aureus Most Recent Lab Values WBC 7.3 10^3/uL (4.5-11.0) 07/04/18 07:30 RBC 4.41 10^6/uL (3.5-6.1) 07/04/18 07:30 Hgb 11.2 g/dL (12.0-16.0) L 07/04/18 07:30 Hct 37.5 % (36.0-48.0) 07/04/18 07:30 MCV 85.0 fl (80.0-105.0) 07/04/18 07:30 MCH 25.4 pg (25.0-35.0) 07/04/18 07:30 MCHC 29.9 g/dl (31.0-37.0) L 07/04/18 07:30 RDW 17.4 % (11.5-14.5) H 07/04/18 07:30 Plt Count 214 10^3/uL (120.0-450.0) 07/04/18 07:30 MPV 10.0 fl (7.0-11.0) 07/04/18 07:30 Neut % (Auto) 59.8 % (50.0-68.0) 07/04/18 07:30 Lymph % (Auto) 28.4 % (22.0-35.0) 07/04/18 07:30 [place] % (Auto) 7.5 % (1.0-6.0) H 07/04/18 07:30 Eos % (Auto) 4.2 % (1.5-5.0) 07/04/18 07:30 Baso % (Auto) 0.1 % (0.0-3.0) 07/04/18 07:30 Lymph # (Auto) 2.1 (1.2-3.4) 07/04/18 07:30 [place] # (Auto) 0.6 (0.1-0.6) 07/04/18 07:30 Eos # (Auto) 0.3 (0.0-0.7) 07/04/18 07:30 Baso # (Auto) 0.01 K/mm3 (0.0-2.0) 07/04/18 07:30 Absolute Neuts (auto) 4.38 (1.4-6.5) 07/04/18 07:30 ESR 43 mm/hr (0.0-20.0) H 06/29/18 18:09 PT 12.4 SECONDS (9.4-12.5) 06/29/18 17:10 INR 1.12 06/29/18 17:10 APTT 34.1 Seconds (26.9-38.3) 06/29/18 17:10 Sodium 141 mmol/L (132-148) 07/04/18 07:30 Potassium 4.2 mmol/L (3.6-5.0) 07/04/18 07:30 Chloride 104 mmol/L (98-107) 07/04/18 07:30 Carbon Dioxide 29 mmol/L (21-33) 07/04/18 07:30 Anion Gap 12 (10-20) 07/04/18 07:30 BUN 14 mg/dL (7-21) 07/04/18 07:30 Creatinine 0.6 mg/dl (0.7-1.2) L 07/04/18 07:30 Est GFR ( Amer) > 60 07/04/18 07:30 Est GFR (Non-Af Amer) > 60 07/04/18 07:30 POC Glucose (mg/dL) 104 mg/dL (65-110) 07/06/18 11:36 Random Glucose 118 mg/dL (70-110) H 07/04/18 07:30 Hemoglobin A1c 7.5 % (4.2-6.5) H 07/02/18 07:00 Calcium 9.7 mg/dL (8.4-10.5) 07/04/18 07:30 Phosphorus 4.8 mg/dL (2.5-4.5) H 06/30/18 07:40 Magnesium 1.7 mg/dL (1.7-2.2) 06/30/18 07:40 Total Bilirubin 0.2 mg/dL (0.2-1.3) 07/04/18 07:30 AST 20 U/L (14-36) 07/04/18 07:30 ALT 16 U/L (7-56) 07/04/18 07:30 Alkaline Phosphatase 68 U/L (38-126) 07/04/18 07:30 C-Reactive Protein 13.00 mg/L (0.0-9.9) H 06/29/18 18:09 Total Protein 8.0 g/dL (5.8-8.3) 07/04/18 07:30 Albumin 4.0 g/dL (3.0-4.8) 07/04/18 07:30 Globulin 3.9 gm/dL 07/04/18 07:30 Albumin/Globulin Ratio 1.0 (1.1-1.8) L 07/04/18 07:30 Triglycerides 129 mg/dL (35-160) 07/02/18 07:00 Cholesterol 150 mg/dL (130-200) 07/02/18 07:00 LDL Cholesterol Direct 86 mg/dL (0-129) 07/02/18 07:00 HDL Cholesterol 24 mg/dL (29-60) L 07/02/18 07:00 TSH 3rd Generation 3.35 mIU/mL (0.46-4.68) 07/02/18 07:00 HIV 1&2 Ag/Ab, 4th Gen Nonreactive (Nonreactive) 06/29/18 19:30 - Hospital Course Hospital Course: Patient is a 42 year old female with a PMH of DM2, morbid obesity (BMI 79), HTN, HLD, chronic venous ulcers, non healing right liu wound, fibroid uterus and peripheral neuropathy who presented to the ED from Dr. Salmeron's office for infected right anterior liu wound with request for IV abx and ID consult. The patient's Right lower extremity wound had been present for 6 months but recently worsened. Patient was given Teflaro in ED and started on Vancomycin and Zosyn empirically. ESR and CRP were both elevated. Remaining lab workup was negative. Blood and wound cultures were ordered. X-rays of Right tibia and fibula indicated no osseous involvement. ID was consulted and recommended holding off antibiotics until culture results returned. Local wound care was performed including cleaning the ulcer with saline and dressing it with xeroform and [id number]. Podiatry was consulted and a Right leg wound debridement with biopsy was performed on 07/03/18. Blood cultures came back negative and wound cultures were positive for Methicillin sensitive Staph Aureus. Biopsy results were negative for osteomyelitisPatient was started on Cefazolin 1gm Q8H as per infectious disease. Pain was well controlled. Patient was stable and ready for discharge to group home home. She reported feeling better this morning. She was told to continue her home meds plus Keflex 500mg Q6 PO and to follow up with her PMD. Patient is to follow up with Dr. Salmeron weekly for wound management. Patient states she has transportation to make these appointments. Meds to beds was done by pharmacy. Patient instructed to resume all home medications. Per social work, transportation to the group home will be provided following discharge. In addition, she was told to return to the emergency department if she had any recurring or new concerning symptoms. This is a brief summary of the events that occurred during this hospital stay. For more information, please refer to the hospital documentation. - Date & Time of H&P Date of H&P: 06/29/18 Time of H&P: 18:16 Discharge Exam - Head Exam Head Exam: ATRAUMATIC, NORMAL INSPECTION - Eye Exam Eye Exam: EOMI Pupil Exam: PERRL - ENT Exam ENT Exam: Mucous Membranes Moist - Respiratory Exam Respiratory Exam: NORMAL BREATHING PATTERN. absent: Wheezes, Respiratory Distress - Cardiovascular Exam Cardiovascular Exam: Tachycardia, REGULAR RHYTHM - GI/Abdominal Exam GI & Abdominal Exam: Normal Bowel Sounds, Soft. absent: Tenderness - Extremities Exam Extremities exam: pedal edema, tenderness, pedal pulses present Additional comments: Right lower extremity wrapped with dressing c/d/i - Neurological Exam Neurological exam: Alert, Oriented x3 - Psychiatric Exam Psychiatric exam: Normal Affect, Normal Mood Discharge Plan - Discharge Medications Prescriptions: Cephalexin [Keflex] 500 mg PO Q6 7 Days #28 cap - Follow Up Plan Condition: STABLE Disposition: OTHER INSTITUTION Instructions: Diabetes Diet , Wound Care (DC), Quitting Smoking, Acetaminophen, Flu Vaccine Additional Instructions: Please follow up with your primary medical doctor, Dr. Grady, within 1 week. Please follow up with Dr. Salmeron/Bianka in clinic as scheduled for dressing changes and further wound management. Please take Keflex 500mg every 6 hours for the next 7 days and complete full course. Please take over the counter Motrin for pain, do not take on an empty stomach. Resume all home medications as prescribed to you. If symptoms worsen, promptly go to your nearest emergency department. Referrals: Juanito Grady MD [Primary Care Provider] - Ayde Salmeron DPM [Staff Provider] - <Aminata Tracy - Last Filed: 07/06/18 14:23> Provider - Provider Date of Admission: 06/29/18 18:13 Attending physician: Aminata Tracy MD Primary care physician: Juanito Grady Consults: 06/29/18 16:21 Podiatry Consult Stat Comment: Consulting Provider: Ayde Salmeron Consulting Physician: Ayde Salmeron Reason for Consult: Right Anterior Liu Wound 06/29/18 17:52 Infectious Disease Consult Routine Comment: Consulting Provider: Davion Kaiser Consulting Physician: Davion Kaiser Reason for Consult: RLE diabetic ulcer 06/30/18 05:07 Diabetic Education Referral Routine Comment: Physician Instructions: Reason For Exam: met critertia 06/30/18 18:00 Physician Consult Routine Comment: Consulting Provider: Supriya Madsen Consulting Physician: Supriya Madsen Reason for Consult: Cardiac clearance for RLE ulcer debriedment 07/03/18 08:56 Nursing Referral for Wound Care Routine Comment: Physician Instructions: Reason For Exam: new wound debridments 07/04/18 16:30 Nursing Referral for Wound Care Routine Comment: Physician Instructions: Reason For Exam: N/A 07/04/18 17:16 Discharge Planning [Case Management Referral] Routine Comment: Physician Instructions: Reason For Exam: Reason for Referral: [facility] - Lab Results Lab Results: Micro Results 07/03/18 08:36 Other: Please Indicate Gram Stain - Final 07/03/18 08:36 Other: Please Indicate Wound Culture - Preliminary Gram Positive Cocci 07/03/18 08:36 Leg - Right Anaerobic Culture - Final NO ANAEROBES ISOLATED. 06/29/18 17:30 Blood Blood Culture - Final NO GROWTH AFTER 5 DAYS 06/29/18 17:30 Blood Gram Stain - Final TEST NOT PERFORMED 06/29/18 17:10 Blood Blood Culture - Final NO GROWTH AFTER 5 DAYS 06/29/18 17:10 Blood Gram Stain - Final TEST NOT PERFORMED 06/29/18 18:10 Leg - Right Gram Stain - Final 06/29/18 18:10 Leg - Right Wound Culture - Final Staphylococcus Aureus Most Recent Lab Values WBC 7.3 10^3/uL (4.5-11.0) 07/04/18 07:30 RBC 4.41 10^6/uL (3.5-6.1) 07/04/18 07:30 Hgb 11.2 g/dL (12.0-16.0) L 07/04/18 07:30 Hct 37.5 % (36.0-48.0) 07/04/18 07:30 MCV 85.0 fl (80.0-105.0) 07/04/18 07:30 MCH 25.4 pg (25.0-35.0) 07/04/18 07:30 MCHC 29.9 g/dl (31.0-37.0) L 07/04/18 07:30 RDW 17.4 % (11.5-14.5) H 07/04/18 07:30 Plt Count 214 10^3/uL (120.0-450.0) 07/04/18 07:30 MPV 10.0 fl (7.0-11.0) 07/04/18 07:30 Neut % (Auto) 59.8 % (50.0-68.0) 07/04/18 07:30 Lymph % (Auto) 28.4 % (22.0-35.0) 07/04/18 07:30 [place] % (Auto) 7.5 % (1.0-6.0) H 07/04/18 07:30 Eos % (Auto) 4.2 % (1.5-5.0) 07/04/18 07:30 Baso % (Auto) 0.1 % (0.0-3.0) 07/04/18 07:30 Lymph # (Auto) 2.1 (1.2-3.4) 07/04/18 07:30 [place] # (Auto) 0.6 (0.1-0.6) 07/04/18 07:30 Eos # (Auto) 0.3 (0.0-0.7) 07/04/18 07:30 Baso # (Auto) 0.01 K/mm3 (0.0-2.0) 07/04/18 07:30 Absolute Neuts (auto) 4.38 (1.4-6.5) 07/04/18 07:30 ESR 43 mm/hr (0.0-20.0) H 06/29/18 18:09 PT 12.4 SECONDS (9.4-12.5) 06/29/18 17:10 INR 1.12 06/29/18 17:10 APTT 34.1 Seconds (26.9-38.3) 06/29/18 17:10 Sodium 141 mmol/L (132-148) 07/04/18 07:30 Potassium 4.2 mmol/L (3.6-5.0) 07/04/18 07:30 Chloride 104 mmol/L (98-107) 07/04/18 07:30 Carbon Dioxide 29 mmol/L (21-33) 07/04/18 07:30 Anion Gap 12 (10-20) 07/04/18 07:30 BUN 14 mg/dL (7-21) 07/04/18 07:30 Creatinine 0.6 mg/dl (0.7-1.2) L 07/04/18 07:30 Est GFR ( Amer) > 60 07/04/18 07:30 Est GFR (Non-Af Amer) > 60 07/04/18 07:30 POC Glucose (mg/dL) 104 mg/dL (65-110) 07/06/18 11:36 Random Glucose 118 mg/dL (70-110) H 07/04/18 07:30 Hemoglobin A1c 7.5 % (4.2-6.5) H 07/02/18 07:00 Calcium 9.7 mg/dL (8.4-10.5) 07/04/18 07:30 Phosphorus 4.8 mg/dL (2.5-4.5) H 06/30/18 07:40 Magnesium 1.7 mg/dL (1.7-2.2) 06/30/18 07:40 Total Bilirubin 0.2 mg/dL (0.2-1.3) 07/04/18 07:30 AST 20 U/L (14-36) 07/04/18 07:30 ALT 16 U/L (7-56) 07/04/18 07:30 Alkaline Phosphatase 68 U/L (38-126) 07/04/18 07:30 C-Reactive Protein 13.00 mg/L (0.0-9.9) H 06/29/18 18:09 Total Protein 8.0 g/dL (5.8-8.3) 07/04/18 07:30 Albumin 4.0 g/dL (3.0-4.8) 07/04/18 07:30 Globulin 3.9 gm/dL 07/04/18 07:30 Albumin/Globulin Ratio 1.0 (1.1-1.8) L 07/04/18 07:30 Triglycerides 129 mg/dL (35-160) 07/02/18 07:00 Cholesterol 150 mg/dL (130-200) 07/02/18 07:00 LDL Cholesterol Direct 86 mg/dL (0-129) 07/02/18 07:00 HDL Cholesterol 24 mg/dL (29-60) L 07/02/18 07:00 TSH 3rd Generation 3.35 mIU/mL (0.46-4.68) 07/02/18 07:00 HIV 1&2 Ag/Ab, 4th Gen Nonreactive (Nonreactive) 06/29/18 19:30 Attending/Attestation - Attestation I have personally seen and examined this patient.: Yes I have fully participated in the care of the patient.: Yes I have reviewed all pertinent clinical information, including history, physical exam and plan: Yes Notes (Text): 07/06/18 14:21 42 year old female with past medical history of diabetes, hypertension, and chronic venous ulcers who presented with chronic right lower extremity ulcerations / non healing right liu wound treated with wound care and iv antibiotics. She was seen by ID and podiatry and had wound debridement with biopsy. Biopsy and cultures were reviewed as above. Patient is discharged to follow up with pmd. Follow up with podiatry. Continue with antibiotics as per ID. Counselled on weight loss, exercise and diet modifications for obesity. Aminata Tracy MD Hospitalist.
--- NOTE | 2018-07-06 14:44 | PN ---
DATE: 07/06/2018 SUBJECTIVE: The patient is in bed, no acute distress, nontoxic. PHYSICAL EXAMINATION VITAL SIGNS: Temperature is 98, blood pressure is 130/70, respiratory rate of 18 and heart rate of 92. HEENT: Unremarkable. NECK: Supple. LUNGS: Decreased breath sounds. HEART: Normal S1, and S2. ABDOMEN: Soft. LABORATORY DATA: Reveals a white count of 7.3, hemoglobin of 11. Chemistries: BUN of 14 and creatinine of 0.6. Serology is noted. Microbiology reveals a right leg with a Staph aureus which is sensitive and the wound culture is Gram-positive cocci. Review of orders ASSESSMENT AND PLAN: A 42-year-old female with super morbid obesity, body mass index of 46, right anterior griffin ulcer, sensitive Staphylococcus aureus, superficial ulcer, . There is no bone pathology or soft tissue as discussed with the Podiatry team. We will complete with p.o. Keflex x7 days and the local wound care. Davion Kaiser MD
[2018-07-06 15:30] VITALS: BP 128/83; PULSE 94; RESP 22
== END 2018-07-06 22:42 | disposition home or self-care (01) | DRG 638 ==
LOC: ED 15:53 → ERH 18:13 → 5RSO 22:26
PROVIDERS: ADMIT Internal Medicine; ATTEND Internal Medicine
PROC: 0JDN3ZZ Extraction of Right Lower Leg Subcutaneous Tissue and Fascia, Percutaneous Approach (ICD-10-PCS; 2018-07-03)
PROC: 0JBN3ZX Excision of Right Lower Leg Subcutaneous Tissue and Fascia, Percutaneous Approach, Diagnostic (ICD-10-PCS; principal; 2018-07-03 07:30)
DX: E11.622 Type 2 diabetes mellitus with other skin ulcer (principal); L97.819 Non-pressure chronic ulcer of other part of right lower leg with unspecified severity; Z68.45 Body mass index [BMI] 70 or greater, adult; B95.61 Methicillin susceptible Staphylococcus aureus infection as the cause of diseases classified elsewhere; I87.2 Venous insufficiency (chronic) (peripheral); E66.01 Morbid (severe) obesity due to excess calories; E11.42 Type 2 diabetes mellitus with diabetic polyneuropathy; I10 Essential (primary) hypertension; E78.5 Hyperlipidemia, unspecified; M10.9 Gout, unspecified; K21.9 Gastro-esophageal reflux disease without esophagitis; D25.9 Leiomyoma of uterus, unspecified; Z59.0 Homelessness

== ENCOUNTER 2018-07-09 17:01 | Emergency (ER) | payer MEDICARE, MEDICAID ==
[2018-07-09 17:08] VITALS: BMI 79.6
--- NOTE | 2018-07-09 17:42 | ED PDOC ---
Arrival/HPI - General Chief Complaint: Wound Check Time Seen by Provider: 07/09/18 17:14 Historian: Patient - History of Present Illness Narrative History of Present Illness (Text): 07/09/18 17:40 A 42 year old female, whose past medical history includes diabetes, hypertension, hyperlipidemia, anemia, and right leg ulcer, presents to the emergency department stating she was concerned she will loose leg due to being unable to get antibiotics for leg wound. Patient reports scheduled to see wound clinic tomorrow. Patient denies any fever, chills, or any other complaints at this time. Dr. Salmeron saw patient's ulcer 3 days ago, dressed it , performed biopsy, which showed normal ligament. Patient was sent home on Keflex. Past Medical History - Provider Review Nursing Documentation Reviewed: Yes - Past History Past History: No Previous - Cardiac Hx Cardiac Disorders: Yes Hx Hypertension: Yes - Pulmonary Hx Respiratory Disorders: No - Neurological Hx Neurological Disorder: No - HEENT Hx HEENT Disorder: No - Renal Hx Renal Disorder: No - Endocrine/Metabolic Hx Diabetes Mellitus Type 2: Yes - Hematological/Oncological Hx Blood Disorders: Yes Hx Anemia: Yes Hx Blood Transfusions: No - Integumentary Hx Dermatological Disorder: No - Musculoskeletal/Rheumatological Hx Musculoskeletal Disorders: No - Gastrointestinal Hx Gastrointestinal Disorders: Yes Hx Gastroesophageal Reflux: Yes Other/Comment: fibroid cyst - Genitourinary/Gynecological Hx Genitourinary Disorders: No - Psychiatric Hx Psychophysiologic Disorder: No Hx Substance Use: No - Surgical History Hx Arthroscopy: Yes (left knee) Hx Orthopedic Surgery: Yes Other/Comment: bilateral knee surgery, bilateral upper eyelid surgery - Anesthesia Hx Anesthesia: Yes Hx Anesthesia Reactions: No Hx Malignant Hyperthermia: No Family/Social History - Physician Review Nursing Documentation Reviewed: Yes Family/Social History: No Known Family HX Smoking Status: Never Smoked Hx Alcohol Use: Yes Hx Substance Use: No Allergies/Home Meds Allergies/Adverse Reactions: Allergies No Known Allergies Allergy (Verified 06/29/18 16:13) Review of Systems - Physician Review All systems were reviewed & negative as marked: Yes - Review of Systems Constitutional: absent: Fevers, Night Sweats Musculoskeletal: Other (right leg ulcer wound) Physical Exam Vital Signs Reviewed: Yes Vital Signs Temp Pulse Resp BP Pulse Ox 07/09/18 17:16 98.2 F 91 H 20 151/79 H 95 Temperature: Afebrile Blood Pressure: Normal Pulse: Regular Respiratory Rate: Normal Appearance: Positive for: Well-Appearing, Non-Toxic, Comfortable, Other (patient is morbidly obese) Pain Distress: None Mental Status: Positive for: Alert and Oriented X 3 - Systems Exam Head: Present: Atraumatic, Normocephalic Pupils: Present: PERRL Extroacular Muscles: Present: EOMI Conjunctiva: Present: Normal Mouth: Present: Moist Mucous Membranes Neck: Present: Normal Range of Motion Respiratory/Chest: Present: Clear to Auscultation, Good Air Exchange. No: Respiratory Distress, Accessory Muscle Use Cardiovascular: Present: Regular Rate and Rhythm, Normal S1, S2. No: Murmurs Abdomen: No: Tenderness, Distention, Peritoneal Signs Back: Present: Normal Inspection Upper Extremity: Present: Normal Inspection. No: Cyanosis, Edema Lower Extremity: Present: Other (anterior right griffin ulcer) Neurological: Present: GCS=15, CN II-XII Intact, Speech Normal Skin: Present: Warm, Dry, Normal Color. No: Rashes Psychiatric: Present: Alert, Oriented x 3, Normal Insight, Normal Concentration Medical Decision Making ED Course and Treatment: 07/09/18 17:43 Impression: 42 year old female comes to the ER due to concern of loosing leg to due ulcer. Plan: -- Antiobiotics -- Reassess and disposition Progress Notes: 07/09/18 18:[address] Salmeron, who states patient can follow-up with her tomorrow morning in the podiatry clinic. - Scribe Statement The provider has reviewed the documentation as recorded by the Ivon Cabrera Provider Scribe Attestation: All medical record entries made by the Ivon were at my direction and personally dictated by me. I have reviewed the chart and agree that the record accurately reflects my personal performance of the history, physical exam, medical decision making, and the department course for this patient. I have also personally directed, reviewed, and agree with the discharge instructions and disposition. Disposition/Present on Arrival - Present on Arrival Any Indicators Present on Arrival: No History of DVT/PE: No History of Uncontrolled Diabetes: Yes Urinary Catheter: No History of Decub. Ulcer: No History Surgical Site Infection Following: None - Disposition Have Diagnosis and Disposition been Completed?: Yes Diagnosis: Cellulitis, leg Disposition: HOME/ ROUTINE Disposition Time: :12 Patient Plan: Discharge Condition: GOOD Discharge Instructions (ExitCare): Cellulitis (ED) Additional Instructions: Please follow up with wound clinic tomorrow Tuesday as scheduled. Prescriptions: Cephalexin [cephalexin] 500 mg PO Q12 #14 cap Referrals: Ayde Salmeron DPM [Staff Provider] - Follow up with primary Forms: [employer] (Fijian)
[2018-07-09 19:13] VITALS: BP 145/78; PULSE 88; RESP 20; TEMP 98.2; O2SAT 99
== END 2018-07-09 19:11 | disposition home or self-care (01) ==
LOC: ED 17:01
DX: L03.115 Cellulitis of right lower limb (principal)